=== PATIENT | male | born 1970 | race Caucasian/White ===

== ENCOUNTER 2025-10-24 18:22 | Emergency (ER) | payer OTHER, SELFPAY ==
--- OUTSIDE RECORDS SUMMARY | 2024-11-04 11:45 | XMS_ITS ---
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 Name Role Phone Cait Garcia Primary Care Provider [phone] Corina Colby [facility] [phone] REASON FOR VISIT R/s 07/22 restart couples therapy Social History Sex Assigned At : Social History Observation Description Sex Assigned At Male Encounters Encounter Location Date Provider Diagnosis [address] [address] 11/04/2024 Corina Colby Plan Of Treatment No Information Progress Notes * ANTELMO VANN PDOB:1969 (55 yo M)Acc No.[id number]:11/04/2024 Behavioral Health Patient: Tj ANTELMO CHATTERJEE :?Corina BeanmDOB:1970???Age:54 Y???Sex:Male Date:11/04/2024Phone:[phone]:TOVA LEE [id number]:Cait Owusu Subjective: * Chief Complaints: * R /s 07/22 restart couples therapy Billing Information: * Procedure Codes: Care Plan Details* * Electronic signature of FRANKO Hampton on 10/24/2025 at 07:01 PM ESTSign off status: Pending * Provider: Dennise Colby Date: 0 11/04/2024 Generated for Printing/Faxing/eTransmitting on:?10/24/2025 07:01 PM EST
--- OUTSIDE RECORDS SUMMARY | 2025-06-12 08:00 | XMS_ITS ---
Author Organization [facility] Serv es Address [address] [place] [address] Care Team Providers Care Partner Name Role Phone Cait Garcia Primary Care Provider Corina Colby Unavailable [phone] Mayur Diop Unavailable [phone] REASON FOR VISIT 2 week BH f/u Social History Sex Assigned At : Social History Observation Description Sex Assigned At Male Encounters Encounter Location Date Provider Diagnosis [address] [address] 2024 Mayur Diop Plan Of Treatment No Information Progress Notes * ANTELMO VANN PDOB:1969 (55 yo M)Acc No.[id number]:06/12/2025 BH F/U - Patient Patient: Tj ANTELMO CHATTERJEE :?FRANKO Moffett-SDOB:1970???Age:54 Y ???Sex:MaleDate:06/12/2025Phone:[phone]:TOVA LEE [id number]:Cait Owusu Subjective: * Chief Complaints: * 2 week BH f/u Care Plan Details* * Electronic signature of CHAVA Moffett, [id number] on 10/24/2025 at 07:01 PM ESTSign off status: Pending * Provider: CHAVA Diaz Date: 0 06/12/2025 Generated for Printing/Faxing/eTransmitting on:?10/24/2025 07:01 PM EST
[2025-10-24 18:45] VITALS: BP 132/77; PULSE 96; TEMP 37; O2SAT 97; BMI 64.2
--- OUTSIDE RECORDS SUMMARY | 2025-10-24 19:01 | XMS_ITS | Clinical Summary ---
Author Organization [facility] Address [address] [place] [address] Care Team Providers Care Knot Bumper Name Role Phone Julienne Neal MD Primary Care Provider Ivet Goins RN Unavailable [phone] Julienne Neal MD Unavailable [phone] Allergies Active AllergyReactionsCriticalityNoted LexjEuxabebsOworocyxk09/09/2023ee YrrcaqZxgcwvv44/08/6141WjbrdhhaFayfIwc75/01/2023 agitation IrzzxiatghXmapjygb66/28/1666XfkaqtteuUxocbveQkpqrq53/01/2023Semaglutide(0.25 Or 0.5mg-Dos)11/03/2024 Pancreatic insufficiency QixdfzzgxvxOaunejw33/08/2023Soy Allergy (Obsolete)Unknown,FpftXsr9808/17/2023 family reported soy allergy Soybean-Containing Drug Wrijmpjk46/23/7772FplabgwoPivhrfm15/08/2023 Medications MedicationSigDispense QuantityRefillsLast FilledStart DateEnd DateStatus Blood Glucose Monitoring Suppl (True Metrix Meter) w/Device kit Inject 1 Device under the skin Daily08/23/2022ctive Syringe, Disposable, 1 ML misc Indications:Testosterone deficiency1 Syringe every 14 (fourteen) days. 100 each 05/15/2023ctive acetaminophen (Tylenol) 325 MG tablet Take 325 mg by mouth every 6 (six) hours if needed for headaches, moderate pain or mild painActive albuterol (2.5 MG/3ML) 0.083% nebulizer solution Take 2.5 mg by nebulization every 6 (six) hours if needed for wheezing or shortness of breathActive ipratropium-albuterol (Duo-Neb) 0.5-2.5 mg/3 mL nebulizer solution Take 3 mL by nebulization every 6 (six) hoursActive nystatin (Mycostatin) 984469 UNIT/GM powder Apply topically in the morning and before bedtime.Active polyethylene glycol, PEG, 3350 (Glycolax) 17 GM/SCOOP powder Take 17 g by mouth Daily02/14/2024ctive lidocaine (Lidoderm) 5 % patch Indications:Chronic midline low back pain without sciaticaApply 1 patch over 12 hours topically Daily Remove & discard patch within 12 hours or as directed by MD. 30 patch 08/20/2024ctive rosuvastatin (Crestor) 20 MG tablet Indications:Type 2 diabetes mellitus without complication, without long-term current use of insulin (HCC)Take 1 tablet (20 mg) by mouth Daily 100 tablet 503/6Active pantoprazole (ProtoNix) 40 MG EC tablet Indications:Gastroesophageal reflux disease without esophagitisTAKE 1 TABLET BY MOUTH IN THE MORNING BEFORE MEAL(S) 30 tablet 1105Active potassium chloride CR (Klor-Con M20) 20 MEQ ER tablet Indications:HypokalemiaTake 2 tablets (40 mEq) by mouth Daily Do not crush or chew. 180 tablet 304/185941/6Active QUEtiapine (SEROquel) 50 MG tablet Indications:Reactive depressionTAKE 1 TABLET BY MOUTH IN THE EVENING WITH 25 MG TABLET 90 tablet 3065Active Zegalogue 0.6 MG/0.6ML solution auto-injector Inject as directed if vuqbyi375Active MAGnesium-Oxide 400 (240 Mg) MG tablet Indications:HypomagnesemiaTake 2 tablets (800 mg) by mouth in the morning and 2 tablets (800 mg) in the evening and 2 tablets(800 mg) before bedtime. 180 tablet 1108/721867/6Active folic acid (Folvite) 1 MG tablet Indications:Folate deficiencyTake 1 tablet (1 mg) by mouth Daily 90 tablet 308/12/907466/6Active pancrelipase, [place], (Zenpep) 5000-79359 units capsule delayed-release particles capsule Indications:Pancreatic atrophy (HCC)Take 3 capsules by mouth in the morning and 3 capsules at noon and 3 capsules in the evening. Take with meals. TAKE 3 CAPSULES BY MOUTH THREE TIMES DAILY THEN 1 TWICE DAILY NEEDED WITH SNACKS. 400 capsule 5Active empagliflozin (Jardiance) 10 MG Indications:Secondary DM with complication ([facility])Take 1 tablet (10 mg) by mouth Daily 90 tablet 6Active glucose blood test strip Indications:Type 2 diabetes mellitus with hyperglycemia, with long-term current use of insulin ([facility])1 each by Other route Daily Use as instructed 100 each 5Active omega-3 (Fish Oil) 1000 MG capsule Indications:Type 2 diabetes mellitus with hyperglycemia, with long-term current use of insulin ([facility]),Chronic diastolic CHF (congestive heart failure) ([facility])Take 1 capsule (1,000 mg) by mouth Daily 90 capsule 6Active Continuous Glucose Sensor (FreeStyle Mark 3 Plus Sensor) [facility] CHANGE SENSOR ONCE EVERY 15 DAYS5Active oxyCODONE (Roxicodone) 5 MG immediate release tablet Indications: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 ([facility])Take 1 tablet (5 mg) by mouth every 6 (six) hours if needed for severe pain 120 tablet 6Active ALPRAZolam (Xanax) 0.5 MG tablet Indications:AnxietyTake 1 tablet (0.5 mg) by mouth every 8 (eight) hours if needed for anxiety 90 tablet 6Active losartan (Cozaar) 25 MG tablet Indications:Primary hypertensionTake 1 tablet (25 mg) by mouth Daily 90 tablet 6Active rivaroxaban (Xarelto) 20 MG tablet Indications:Pulmonary embolism, unspecified chronicity, unspecified pulmonary embolism type, unspecified whether acute cor pulmonale present ([facility])Take 1 tablet (20 mg) by mouth in the evening. Take with meals Take with food. 90 tablet 5Active busPIRone (Buspar) 10 MG tablet Indications:AnxietyTake 1 tablet (10 mg) by mouth in the morning and 1 tablet (10 mg) in the evening and 1 tablet (10 mg) before bedtime. 270 tablet /6Active QUEtiapine (SEROquel) 25 MG tablet Indications:AnxietyTake 1 tablet (25 mg) by mouth 2 (two) times a day 1 tab in the morning and Take 1 tab in the evening along with a 50 mg tablet to equal 75 mg (EVENING ONLY) 180 tablet ctive hydrOXYzine HCl (Atarax) 25 MG tablet Indications:AnxietyTake 1 tablet (25 mg) by mouth as needed at bedtime for itching or anxiety 90 tablet Discontinued(Therapy completed) hydrALAZINE (Apresoline) 10 MG tablet Take 10 mg by mouth See administration instructions May utilize if bp greater than 140/90 daily prn111/30/2024Discontinued(Therapy completed) busPIRone (Buspar) 10 MG tablet Indications:AnxietyTake 1 tablet (10 mg) by mouth in the morning and 1 tablet (10 mg) in the evening and 1 tablet (10 mg) before bedtime. 270 tablet 311/20231030/11/2024Discontinued(Reorder) meclizine (Antivert) 12.5 MG tablet Indications:Benign paroxysmal positional vertigo, unspecified lateralityTake 1 tablet (12.5 mg) by mouth 3 (three) times a day as needed for dizziness 30 tablet 110Discontinued(Therapy completed) Xarelto 20 MG tablet Indications:Pulmonary embolism, unspecified chronicity, unspecified pulmonary embolism type, unspecified whether acute cor pulmonale present (HCC)TAKE 1 TABLET BY MOUTH EVERY DAY IN THE EVENING WITH MEALS 90 tablet Discontinued(Reorder) QUEtiapine (SEROquel) 25 MG tablet Indications:AnxietyTAKE 1 TABLET BY MOUTH IN THE MORNING AND 1 IN THE EVENING 180 tablet /11/2024Discontinued(Reorder) glucagon (Gvoke HypoPen) 1 MG/0.2ML injection Indications:Type 2 diabetes mellitus without complication, without long-term current use of insulin (HCC)Inject 0.2 mL (1 mg) under the skin 1 (one) time if needed for low blood sugar 1 each Discontinued ALPRAZolam (Xanax) 0.5 MG tablet Indications:AnxietyTake 1 tablet (0.5 mg) by mouth every 8 (eight) hours if needed for anxiety 90 tablet Discontinued(Reorder) magnesium oxide (Mag-Ox) 400 MG tablet TAKE 2 TABLETS BY MOUTH IN THE MORNING AND 2 IN THE EVENING AND 2 AT BEDTIME Discontinued(Therapy completed) losartan (Cozaar) 25 MG tablet Indications:Primary hypertensionTake 1 tablet (25 mg) by mouth Daily 90 tablet Discontinued(Reorder) oxyCODONE (Roxicodone) 5 MG immediate release tablet Indications: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 Neal Do not start before August 29, 2025. 120 tablet Discontinued(Reorder) QUEtiapine (SEROquel) 25 MG tablet Indications:AnxietyTake 1 tablet (25 mg) by mouth at bedtime 90 tablet Discontinued Active Problems ProblemNoted DateDiagnosed DateHemiplegia of nondominant side as late effect of cerebrovascular jozyueb0207/27/2025History of pulmonary /29/2025 Nontraumatic intracerebral hemorrhage, oelnumtgaqs56/29/2025Presence of other vascular implants and ctxypw8707/27/2025dhesive capsulitis of left shoulder 03/21/2024Left anterior shoulder pain03/21/2024Leg weakness, dyyjkplvg61/24/2024 Former surjvs3802/18/2024Nausea vomiting and kxzldjce75/22/2024GAD (generalized anxiety disorder)09/24/2023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09/21/2023 Nontraumatic subcortical hemorrhage of right cerebral cypjxtbmet57/24/2023 History of exploratory vejaxiyrnd18/07/2023 Overview (01/02/2024): Last Assessment & Plan: Assessment: s/p exploratory laparotomy, abdominal washout, and gastric wedge resection on 08/12. Has sutures and retention sutures in place Has corpak with TF at goal and diarrhea PLAN: -- discussed suture removal with surgery - their plan is to wait at least 1 month from surgery for removal -- Continue TF @goal, aniket marlyn fiber supplements today for diarrhea Pjssqwg4308/31/2023 Overview (01/02/2024): Last Assessment & Plan: Assessment: - Chronic allen with c/o dysuria and burning on admission. Allen changed out on admission 08/31 and UA with pyuria, nitrites and LE. - Most recent UCx NGTD. - Completed Pyridium to help with c/o bladder pressure. - Started on cefepime due to isolated fever, urine cultures negative. Cefepime changed to Cefdinir PLAN: -- Continue allen. -- Cont cefdinir through 09/07 for gram negative coverage. Pulmonary ldodfhmt93/03/2023 Overview (01/02/2024): Last Assessment & Plan: Assessment: - RLL PE seen on CT chest 08/31. Recent ICH with splenic hematoma.. - IVC filter placed per IR 09/02. - Bilateral upper ext superficial thrombophlebitis. - Lower ext ultrasound with acute DVTs in right distal external iliac and common femoral vein and left popliteal vein, posterior tibial veins, and peroneal veins from proximal to distal. PLAN: -- Not candidate for AC d/t recent ICH. -- IVC in situ. Hemiplegia and hemiparesis following nontraumatic intracerebral hemorrhage affecting left non-dominant side07/30/2023 Overview (01/02/2024): Last Assessment & Plan: Assessment: - Hx CVA with residual left sided weakness, 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 - Recent right thalamic ICH s/p trach - Neurologically remains intact with no focal deficits. Plan: -- Continue to monitor neuro exam. -- Cont work with PT/OT. Lvwpbpfdq00/09/2023ell's palsy04/06/20238003Smbrpytq69/09/2023Major depressive disorder, single episode, zoqdzjkysdt20/09/2023ituitary ywwtjvdpuse54/09/2023 Difficulty rccmfaj5704/05/2023Hyperglycemia due to type 2 diabetes mellitus 04/05/2023Lumbago of lumbar region with nivcvizc71/08/2023Mild episode of recurrent major depressive aeuqvlgy45/08/2023Morbid ybaxaix1304/05/2023OSA (obstructive sleep apnea)04/05/2023Other chronic pain04/05/2023Type 2 diabetes mellitus in patient with mgijwtt9110/09/2018 Overview (11/03/2024): Problem List Diagnosis Replacement Utility 07/29/2024 Muscle essizwvp83/03/2018Need for assistance with personal care09/30/2018 Unsteadiness on feet09/30/2018Combined systolic and diastolic cardiac ybqqbiesnjj25/01/2018Congestive heart sequscv1909/28/20189694Muxrzru90/01/2018Disorder of brain09/27/2018Chronic diastolic CHF (congestive heart failure)09/23/2018 Overview (04/06/2023): Last Assessment & Plan: Assessment: Suspected due to prior history of volume overload with normal LV systolic function on echocardiograms. Prior echocardiograms very limited and unable to evaluate diastolic function. Currently, heartfailure is compensated. Unclear if pulmonary edema on CXR as limited study given body habitus. Patient developing contraction alkalosis. PLAN: Continue Torsemide Monitor I&O Monitor and replete electrolytes Physical sttgmexo52/26/2018 Overview (04/06/2023): Last Assessment & Plan: Assessment: Related to co-morbid illnesses and multiple hospitalizations. PLAN: PT/OT consulted Discharge to SNF: awaiting precert Circadian rhythm sleep hcacqwun29/17/2018 Overview (04/06/2023): Last Assessment & Plan: Assessment: For past 3 years is awake during night time, goes to bed at 6am and uses CPAP throughout the day PLAN: - Will need follow up w/ sleep medicine upon discharge Overview: Last Assessment & Plan: Assessment: For past 3 years is awake during night time, goes to bed at 6am and uses CPAP throughout the day PLAN: - Will need follow up w/sleep medicine upon discharge Last Assessment & Plan: Assessment: For past 3 years is awake during night time, goes to bed at 6am anduses CPAP throughout the day PLAN: - Will need follow up w/ sleep medicine upon discharge Hypertensive qweuyrrv10/17/4108Ejeasnu32/06/2018 Overview (04/06/2023): Last Assessment & Plan: Assessment: Has been severely depressed since father committed suicide 8 years ago. Has not seeked help, but wishes to per mother. PLAN: - Cymbalta 60mg BID - dose increase d/t uncontrolled anxiety per pt - Psych consult to assist w/ Anxiety/depression that is inhibiting compliance with BiPAP - Seroquel 75mgqhs with 50mg PRN - atarax PRN Overview: Last Assessment & Plan: Assessment: Has been severely depressed since father committed suicide 8 years ago. Has not seeked help, but wishes to per mother. PLAN: - Cymbalta 60mg BID - dose increase d/t uncontrolled anxiety per pt - Psych consult to assist w/ Anxiety/depression that is inhibiti ng compliance with BiPAP - Seroquel 75mg qhs with 50mg PRN - atarax PRN Last Assessment & Plan: Assessment: Stable. PLAN: Continue Seroquel and Cymbalta Acute on chronic respiratory tvjuspk85/07/2018 Overview (04/06/2023): Last Assessment & Plan: Assessment: unclear etiology - pneumonia/infectious vs volume overload; component of OHS/CELESTINE - Less likely PEd/t CT chest and DVT scan (-) Completed course of empiric antibiotics with Levaquin and CeftriaxoneEcho bubble study neg for shunt - now back on home O2 requirements PLAN: - Continue weaning O2 requi rements - BiPAP HS. - Patient sleep pattern is from 6am -4pm daily, wears bipap during this time not at night - Diuresis - torsemide 20mg daily. - s/p Diamox 250 mg daily x3 (09/07-09/09) Maty coats on 18: Obesity Hypoventilation Syndrome He is aware that his weight can play a significant role in affecting gas exchange. He is now compliant with the BiPAP and does use his supplemental oxygen at 3 LPM for 24 hours/day - although the mask is a poor fit. Room Air Blood Gases today confirm persistent hypoxemia and hypercarbia. No anemia or polycythemia. Last ECHO does show elevated pulmonary pressure. I am contacting Dr. Churchill today for her assistance in helping to obtain the new BiPAP device with humidification and [facility]. She last evaluated Mr. Koenig on 10/03 with recommendations for a BiPAP titration and new device. [facility] will only deliver the new BiPAP once the patient is discharged on 10/16 which is delaying improvement in sleep and daytime activit ies. We discussed that he should use this device whenever he sleeps - day or night - and attach oxygen as well. We did speak about the use of OTC saline nasal sprays to cleanse and condition nose andsinuse Last Assessment & Plan: Assessment: Presented with acute hypercarbia (pCO2 in 90s) at LTACH in setting of noncompliance with BiPAP. CXR limited due to body habitus but showed bibasilar atelectasis with no acute process. PLAN: Continue supplemental oxygen: on 5LPM via NC at baseline Continue BiPAP with sleep; titration completed by Pulmonary team Continue Pulmicort and Albuterol Needs sleep study and titration study as outpatient F/u in [facility] Oobpdfhyqutetz43/24/2016Testosterone pakkiahqbx18/23/2013 Overview (04/06/2023): Last Assessment & Plan: PLAN: - Hold testosterone shots Overview: Last Assessment & Plan: PLAN: - Hold testosterone shots Last Assessment & Plan: PLAN: - Hold testosterone shots Back pain10/03/2012Calculus of dhtlnx7210/03/2012Family history of malignant neoplasm of /06/2012 Overview (02/07/2024): [facility]ED Diagnostic import Gastroesophageal reflux tzyxbvx1010/03/2012 Overview (04/06/2023): Pulm boonetracy on 10.07.18: He has pretty good symptom control using Prilosec 40 mg twice daily and denies any choking or aspiration of food/liquids. He does admit to cough if a dose of Prilosec is missed. We did talk about some anti-reflux precautions and I shared some patient education material about this to take home. He has an appointment on 10/09 in [place] for an evaluation. Resolved Problems ProblemNoted DateDiagnosed DateResolved DateTracheostomy aycjvgq0107/27/2025 07/27/2025t high risk for falls/Screen for colon cancer /7056Fhagrcnkaxd50/24/202309/cute hypoxemic respiratory spawtsu42/Nicotine use klfhueqa22/ Parapneumonic / Overview (01/02/2024): Last Assessment & Plan: Assessment: - S/p chest tube placement 09/01. - Exudative by Light's criteria. - Pleural fluid LDH 435. - Now with minimal output. - Pleural fluid culture negative. - Chest tube removed by IR 09/05 with post removal CXR completed - Remains stable on vent Plan: -- Monitor respiratory status and wean vent as tolerated by patient. -- CXR PRN Morbid obesity with BMI of 60.0-69.9, adult/ Overview (01/02/2024): Last Assessment & Plan: Assessment: - BMI 61.18. Plan: - Nutrition consulted, appreciate recs - Diet education/lifestyle modification prior to d/c. Spleen rsmtzgyl86/ Overview (01/02/2024): Last Assessment & Plan: Assessment: - Pt with splenic hematoma on outside imaging 10 cm x 1.9 cm. Hgb 8.9 on admission (was 8.6 at discharge 4 days prior). - Since no disc sent by , primary team repeated CT chest/abd/pelvis. CT abd showed interval decrease in rim-enhancing trace perisplenic fluid collection; no internal gas bubbles; small upper left abdominal cruz-incisional seroma. - Hemoglobin remains stable. PLAN: -- Trend CBC daily and PRN -- Monitor for s/s bleeding, none today -- Transfuse for Hgb <7 or symptomatic anemia. -- Not candidate for AC d/t recent ICH, is s/p IVC filter MRSA ffqyqxmed21/ Overview (01/02/2024): Last Assessment & Plan: Assessment: - During recent admission, was being treated with IV vanco (transitioned to PO Linezolid as outpatient) through 09/09 for MRSA pneumonia per ID. - Resumed on IV vanco while inpatient per ID recommendations, now transitioned back to Linezolid because he is planned for discharge to LTACH 09/06 PLAN: -- Cont linezolid PO as patient is planned for discharge to LTACH. -- Trend WBC/fever curve. -- CXR as clinically indicated. -- Wean vent settings as able. At risk for spread of mgykrtmpn98Malnutrition of mild degree (HHS-HCC)HyperkalemiaLeukocytosis Overview (01/02/2024): Last Assessment & Plan: WBC elevated to 17 overnight with fevers C/o abd pain as well Plan - Continue vanco, add jourdan - ID consulted - CT C/A/P ordered Pneumonia of both lower lobes due to infectious sjilepbe70 Overview (01/02/2024): Last Assessment & Plan: Assessment: - Hospital course c/b MRSA pneumonia. - Continues to require ventilator support. - ID following. Plan: -- Follow up ID recommendations. -- Continue vancomycin for presumed MRSA pneumonia while inpatient. Plan to transition to fkyeljwzd114 mg BID with EOT 09/05. Failure to wean from mechanical majnzcccvwc33 Overview (01/02/2024): Last Assessment & Plan: Assessment: - Patient with previous diagnosis of COPD/asthma. - Course complicated by MRSA pneumonia and pleural effusions. - 08/21 Trach exchange, diagnostic bronchoscopy. Post-procedure CXR unchanged from prior. Plan: -- Continue to wean from vent as tolerated by patient. -- Continue antimicrobial per ID recommendations for MRSA pneumonia. Difficult ndybvh75Therapeutic drug pdqohiwfqu76/07/2023 07/15/2024 Overview (01/02/2024): Last Assessment & Plan: -BLE SCDs -SC Heparin 7500units Q8h, PTT normal on this dose Cardiac arrest due to respiratory kudknizj67 Overview (01/02/2024): Last Assessment & Plan: 08/01 afternoon had PEA arrest following respiratory decompensation. ROSC achieved following intubation and 6 rounds of CPR including 3x Epi and calcium and intubation via 2DART -post-arrest Echo without significant changes -remains hemodynamically stable Blister of backlister of left ihofnlgb39 Oropharyngeal utqbciizy85 Overview (01/02/2024): Last Assessment & Plan: 08/08: s/p PEG 08/10: TF changed from nutren 2.0 back to peptamen AF d/t intolerance to nutren( diarrhea, GI upset) Ankle /hronic obstructive pulmonary witrbti1504/06/2023 04/06/2023Influenza-like bdhueho24Oxygen zuybaxetj62/08/2023 07/15/2024Elbow pain, right Overview (04/06/2023): Last Assessment & Plan: Assessment: Noted since fall at LTACH. No evident soft tissue injury but bony tenderness noted. X-ray negative for fracture or dislocation of elbow. Pain is improving. PLAN: Continue to monitor Superficial thrombophlebitis of left upper lcjuvifhp28 Overview (04/06/2023): Last Assessment & Plan: Assessment: Related to recent IV in LUE. Patient concerned for DVT but duplex of LUE on 09/24/2018 negative for DVT but showed cephalic vein superficial thrombophlebitis. PLAN: Continue to monitor Urinary usrpeaasq13 Overview (04/06/2023): Last Assessment & Plan: Assessment: Patient concerned for UTI this admission; also having low grade fevers. UA not concerning for infection. Urine culture grew 10,000 - <50,000 CFU/ml Enterococcus faecalis. PLAN: Continue to monitor Respiratory vdsweoz62/0254Irqbdffcnc52/17/201809/cute exacerbation of chronic obstructive airways Overview (04/06/2023): Pulm eval on 10.07.18: COPD exacerbation during last admission (09/18 - 09/27/18) CXR stable on 09/23/2018 and lung louis clear today. Sat on 3 LPM is 94%. Last PFTs in 10/2012 and Spirometry and Lung Volumes ordered today confirm moderate restriction TLC 59% Discharge meds: Prednisone x 5 days - completed, Mucinex twice daily, Albuterol and Pulmicort in nebulizer twice daily He will continue using Pulmicort and Albuterol in nebulizer and good mouth-rinsing with both will reduce side effects. Importance of vaccines discussed but patient declined. Last Assessment & Plan: Assessment: Patient continues with wheezing, dyspnea, and increased productive cough. CXR stable on 09/23/2018 and demonstrates stable left-sided pleural effusion with left lower lobe atelectasis/consolidation and mild patchy right basilar atelectasis. Last PFTs in 2012 showed restrictive lungdisease but patient former smoker and endorses diagnosis of COPD. PLAN: Continue Prednisone x 5 days Continue Mucinex Continue Albuterol and Pulmicort F/u with Pulmonary as scheduled Feeling of incomplete bladder beucqohm76Intractable migraine Urinary qwaenfh58Voiding dysfunction Vitamin D pfrirmvllm65 Overview (04/06/2023): Maty coats on 10.07.18: Vitamin Ds andexercise Vitamin D level was low = 23 (normal 31-80) on 10/03 and I gave to him a prescription todayfor 5,000 IU to be taken each day. We discussed the importance of Vitamin D with a role in strong bones and muscles and that Vitamin D needs to be used to absorb Calcium. This should be managed by his PCP with his history of kidney stones. We spoke about progressive exercise as a goal beginning with extended walking. He may consider speaking with his new PCP about bariatric surgery. Encounters DateTypeDepartmentCare RrduGysgnwgyoow45/11/2025Patient Outreach [facility] [address] 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 [address] Ivet Deal, BERTO from Last 3 Months Immunizations ImmunizationAdministration DatesNext DueInfluenza, seasonal, injectable, preservative free08/18/2016PPD Test09/27/2018 Family History Medical HistoryRelationNameCommentsAlcohol abuseFatherProstate cancerFather committed suicideFatherFibromyalgiaMotherLupusMotherpituitary tumorMotherNo Known ProblemsSisterDrug abuseSon1 sonRelationNameStatusCommentsFatherDeceased MotherSister1 sisterSon2 sons Social History Tobacco UseTypesPacks/DayYears UsedDateSmoking Tobacco: NeverSmokeless Tobacco: Never Tobacco Cessation:Counseling Given: Not Answered Alcohol UseStandard Drinks/WeekCommentsNot Currently0 (1 standard drink = 0.6 oz pure alcohol)Humiliation, Afraid, Rape, and Kick questionnaireAnswerDate RecordedWithin the last year, have you been afraid of your partner or ex-partner?Patient gvfjdmcy58/08/2025Within the last year, have you been humiliated or emotionally abused in other ways by your partner or ex-partner? Patient /08/2025Within the last year, have you been kicked, hit, slapped, or otherwise physically hurt by your partner or ex-partner?Patient snbgtxif08/08/2025Within the last year, have you been raped or forced to have any kind of sexual activity by your partner or ex-partner?Patient declined 02/03/2025Social Connection and Isolation PanelAnswerDate RecordedIn a typical week, how many times do you talk on the phone with family, friends, or neighbors?More than three times a week02/03/2025How often do you get together with friends or relatives?Twice a week02/03/2025How often do you attend advent or sikhism services?Patient fktnkfys61/08/2025Do you belong to any clubs or organizations such as advent groups, unions, fraternal or athletic groups, or school groups?No02/03/2025How often do you attend meetings of the clubs or organizations you belong to?Never02/03/2025re you , , , , never , or living with a partner?Living with rrhlcrw0902/03/2025 AUDIT-CAnswerDate RecordedFrequency of Alcohol ConsumptionNot on file04/06/2023 Q2: How many drinks containing alcohol do you have on a typical day when you are drinking?Patient does not drink04/06/2023Frequency of Binge DrinkingNot on file 04/06/2023HQ-2AnswerDate RecordedPatient Health Questionnaire-2 Score0 03/10/2025[facility] - Occupational Stress QuestionnaireAnswerDate RecordedDo you feel stress - tense, restless, nervous, or anxious, or unable to sleep at night because yourmind is troubled all the time - these days?Very much02/03/2025Sex and Gender InformationValueDate RecordedSex Assigned at BirthNot on fileLegal GhnVspk5101/10/2023 6:45 PM EDT Gender IdentityNot on fileSexual OrientationNot on file Last Filed Vital Signs Vital SignReadingTime TakenCommentsBlood Tkwqkqpp684/8612/11/2024 1:50 PM EST Dwoyd404909/29/2025 1:50 PM YMPHivfwtgwgeb27.3 ??C (97.3 ??F)09/29/2025 1:50 PM ESTRespiratory Qhwq260206/23/2025 1:54 PM EDTOxygen Wrzhyzokca04%09/29/2025 1:50 PM ESTInhaled Oxygen Concentration--Yuckcw821 kg (377 lb 3.2 oz)09/29/2025 1:50 PM HBWKohqpe954.5 cm (5' 9.5 )09/29/2025 1:50 PM ESTBody Mass Index54.9 09/29/2025 1:50 PM EST Plan of Treatment DateTypeDepartmentCare Team (Latest Contact Info)Nnaqudscmwo76/03/2026 2:20 PM ESTOffice Visit [facility] [place] [facility] [address] [place] [phone] Julienne Neal MD [address] [place] [address] Health MaintenanceDue DateLast DoneCommentsCT Invxadkadkxs1972Colonoscopy 1972FIT-DNA1972FIT08/10/19723130Unvhmdqevfzcw1972Diabetes: Retinopathy Knpenqtzp01/13/1982Pneumococcal Vaccine: Pediatrics (0 to 5 Years) and At-Risk Patients (6 to 64 Years) (1 of 2 - PCV)1991Colorectal Cancer Ipouubtym71/08/4802DDXE82/05/2023Influenza Vaccine (#1)2025 08/18/2016Diabetes: Hemoglobin A1C, 06/23/2025, 04/10/2025, Additional history existsDiabetes: Urine Protein Ivgwdfdkt25, 01/02/2024Medicare Annual Wellness (AWV), 03/10/2025, 04/08/2024 Procedures Procedure NamePriorityDate/TimeAssociated DiagnosisCommentsMAGNESIUMRoutine 09/29/2025 2:31 PM EST 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) Pancreatic atrophy (HCC) PROTHROMBIN TIME-YGKFvdxefs16/02/2025 2:31 PM EST 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) Pancreatic atrophy (HCC) FOLATE, AJKJOPxlnbvz10/02/2025 2:31 PM EST 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) Pancreatic atrophy (HCC) VITAMIN N07Jghouyf31/02/2025 2:31 PM EST 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) Pancreatic atrophy (HCC) IRON + TRANSFERRIN + UKCWAdivlvu60/02/2025 2:31 PM EST 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) Pancreatic atrophy (HCC) COMPREHENSIVE METABOLIC BLLUNBvumepf38/02/2025 2:31 PM EST 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) Pancreatic atrophy (HCC) CBC (INCLUDES DIFF/PLT)Bzhdlij9409/29/2025 2:31 PM EST 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) Pancreatic atrophy (HCC) SCXAIMITkisuxj22/02/2025 2:31 PM EST 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) Pancreatic atrophy (HCC) CSNCXFDyzcjpq99/02/2025 2:31 PM EST 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) Pancreatic atrophy (HCC) POCT GLYCATED HEMOGLOBIN, WBOCSFggtkjg37/02/2025 2:01 PM EST Type 2 diabetes mellitus without complication, without long-term current use of insulin (HCC) MICROALBUMIN / CREATININE URINE BBGOMEjhuaiz73/13/2025 8:43 AM EDT Type 2 diabetes mellitus without complication, without long-term current use of insulin (HCC) from Last 3 Months or Most Recently Relevant to Health Maintenance Results * Iron + transferrin + TIBC (09/29/2025 2:31 PM EST)ComponentValueRef RangeTest MethodAnalysis TimePerformed AtPathologist SignatureIron Bind.Cap.(TIBC)248707 - 450 ug/qUONJVDZMRFET891767 - 343 ug/xLDIAPYYXZcgb6874 - 169 ug/dLLABCORPIron Xcyydbgbtq1554 - 55 %ZDZZYZRSRKEQDRMBIC113340 - 329 mg/dLLABCORPSpecimen (Source)Anatomical Location / LateralityCollection Method / VolumeCollection TimeReceived TimeBloodVenous blood specimen / Trodcqd0109/29/2025 2:31 PM EST 09/29/2025 Narrative [facility] - 09/30/2025 8:35 AM EST Performed at: 01 - [facility] [address] ??[id number] Degreasing Wheel Operator: Jordan Walters PhD, Phone: ??[phone] Authorizing ProviderResult TypeResult StatusJulienne Neal MDLAB BLOOD ORDERABLESFinal ResultPerforming OrganizationAddressCity/State/ZIP CodePhone Number [facility] * (ABNORMAL) Protime-INR (09/29/2025 2:31 PM EST)ComponentValueRef RangeTest MethodAnalysis TimePerformed AtPathologist SignatureINR1.3(H)0.9 - 1.2[facility] Comment: Reference interval is for non-anticoagulated patients. Suggested INR therapeutic range for Vitamin K antagonist therapy: ?? Standard Dose (moderate intensity ?therapeutic range): ? 2.0 - 3.0 ?? Higher intensity therapeutic range ? 2.5 - 3.5 Prothrombin Time13.5(H)9.1 - 12.0 secLABCORPSpecimen (Source)Anatomical Location / LateralityCollection Method / VolumeCollection TimeReceived TimeBloodVenous blood specimen / Margbpe4409/29/2025 2:31 PM EST09/29/2025 Narrative [facility] - 09/30/2025 8:35 AM EST Performed at: 01 - [address] ??[id number] Degreasing Wheel Operator: Jordan Walters PhD, Phone: ??[phone] Authorizing ProviderResult TypeResult StatusJulienne Neal MDLAB BLOOD ORDERABLESFinal ResultPerforming OrganizationAddressCity/State/ZIP CodePhone Number [facility] * (ABNORMAL) CBC and differential (09/29/2025 2:31 PM EST)ComponentValueRef RangeTest MethodAnalysis TimePerformed AtPathologist SignatureWBC8.53.4 - 10.8 x10E3/uLLABCORPRBC6.41(H)4.14 - 5.80 x10E6/lHGXXMNPYWgo22.313.0 - 17.7 g/dL IELPBXFCqb96.4(H)37.5 - 51.0 %QLAHSZOVWB8252 - 97 iDSVWKNDAEYM30.026.6 - 33.0 azQWMCOHOPZQT41.431.5 - 35.7 g/pSKKGFJMEPSC90.211.6 - 15.4 %[facility]ABCORPPlatelets 024377 - 450 x10E3/uNUTWCJPVUkpceogejww89Cou Estab. %QCDZULGGfilxs12Mxk Estab. %UBIQEPXCebzyafft5Kpy Estab. %GTDJSXLFrz1Uys Estab. %KIPAMEUSkrxw0Ypw Estab. % [facility]PNeutrophils Abs5.81.4 - 7.0 x10E3/uLLABCORPLymphs Abs1.70.7 - 3.1 x10E3/uLLABCORPMonocytesAbs0.80.1 - 0.9 x10E3/uLLABCORPEos Abs0.20.0 - 0.4 x10E3/uLLABCORPBaso Abs0.00.0 - 0.2 x10E3/uLLABCORPImmature Jehknltuyewo9Dns Estab. %[facility]ABC[facility]PImmature Grans Abs0.00.0 - 0.1 x10E3/uLLABCORPSpecimen (Source) Anatomical Location / LateralityCollection Method / VolumeCollection Time Received TimeBloodVenous blood specimen / Bebktal9909/29/2025 2:31 PM EST 09/29/2025 Narrative [facility] - 09/30/2025 8:35 AM EST Performed at: [address] [place] [address] ??[id number] Degreasing Wheel Operator: Jordan Walters PhD, Phone: ??[phone] Authorizing ProviderResult TypeResult StatusJulienne PALUMBO BLOOD ORDERABLESFinal ResultPerforming OrganizationAddressCity/State/ZIP CodePhone Number [facility] * Magnesium (09/29/2025 2:31 PM EST)ComponentValueRef RangeTest MethodAnalysis TimePerformed AtPathologist SignatureMagnesium2.11.6 - 2.3 mg/dLLABC[facility]P Specimen (Source)Anatomical Location / LateralityCollection Method / Volume Collection TimeReceived TimeBloodVenous blood specimen / Uryqlce4909/29/2025 2:31 PM EST09/29/2025 Narrative [facility] - 09/30/2025 8:35 AM EST Performed at: [address] ??[id number] Degreasing Wheel Operator: Jordan Walters PhD, Phone: ??[phone] Authorizing ProviderResult TypeResult StatusJulienne PALUMBO BLOOD ORDERABLESFinal ResultPerforming OrganizationAddressCity/State/ZIP CodePhone Number [facility] * Lipase (09/29/2025 2:31 PM EST)ComponentValueRef RangeTest MethodAnalysis Time Performed AtPathologist TciuogbasKDFPXY6398 - 78 U/[facility]PSpecimen (Source) Anatomical Location / LateralityCollection Method / VolumeCollection Time Received TimeBloodVenous blood specimen / Amwqbgw6009/29/2025 2:31 PM EST 09/29/2025 Narrative [facility] - 09/30/2025 8:35 AM EST Performed at: [address] [place] [address] ??[id number] Degreasing Wheel Operator: Jordan Walters PhD, Phone: ??[phone] Authorizing ProviderResult TypeResult StatusJulienne Neal MDWESTERN PLAINS MEDICAL COMPLEX BLOOD ORDERABLESFinal ResultPerforming OrganizationAddressCity/State/ZIP CodePhone Number [facility] * Folate (09/29/2025 2:31 PM EST)ComponentValueRef RangeTest MethodAnalysis Time Performed AtPathologist SignatureFolate>20.0>3.0 ng/mLLABCORPComment: A serum folate concentration of less than 3.1 ng/mL is considered to represent clinical deficiency. Specimen (Source)Anatomical Location / LateralityCollection Method / Volume Collection TimeReceived TimeBloodVenous blood specimen / Vuqhlpx0909/29/2025 2:31 PM EST09/29/2025 Narrative [facility] - 09/30/2025 8:35 AM EST Performed at: [address] ??[id number] Degreasing Wheel Operator: Jordan Walters PhD, Phone: ??[phone] Authorizing ProviderResult TypeResult StatusJulienne PALUMBO BLOOD ORDERABLESFinal ResultPerforming OrganizationAddWayne Memorial Hospitalty/[facility] CodePhone Number [facility] * Vitamin B12 (09/29/2025 2:31 PM EST)ComponentValueRef RangeTest MethodAnalysis TimePerformed AtPathologist SignatureVitamin [id number] - 1,245 pg/mLL[facility]P Specimen (Source)Anatomical Location / LateralityCollection Method / Volume Collection TimeReceived TimeBloodVenous blood specimen / Ltknanu1709/29/2025 2:31 PM EST09/29/2025 Narrative [facility] - 09/30/2025 8:35 AM EST Performed at: [address] [place] [address] ??[id number] Degreasing Wheel Operator: Jordan Walters PhD, Phone: ??[phone] Authorizing ProviderResult TypeResult StatusJulienne PALUMBO BLOOD ORDERABLESFinal ResultPerforming OrganizationAddressCity/State/ZIP CodePhone Number [facility] * Amylase (09/29/2025 2:31 PM EST)ComponentValueRef RangeTest MethodAnalysis TimePerformed AtPathologist TudengzbwLGXBBUO3532 - 110 U/[facility]PSpecimen (Source)Anatomical Location / LateralityCollection Method / VolumeCollection TimeReceived TimeBloodVenous blood specimen / Gdoakei3609/29/2025 2:31 PM EST 09/29/2025 Narrative [facility] - 09/30/2025 8:35 AM EST Performed at: [address] ??[id number] Degreasing Wheel Operator: Jordan Walters PhD, Phone: ??[phone] Authorizing ProviderResult TypeResult StatusJulienne PALUMBO BLOOD ORDERABLESFinal ResultPerforming OrganizationAddressCity/State/ZIP CodePhone Number [facility] * (ABNORMAL) Comprehensive metabolic panel (09/29/2025 2:31 PM EST)Component ValueRef RangeTest MethodAnalysis TimePerformed AtPathologist SignatureGlucose 112(H)70 - 99 mg/bIPDSSBNDTQD315 - 24 mg/dLLABCORPCreat1.180.76 - 1.27 mg/dL HFUYHTRPGBP99>59 mL/min/1.73LABC[facility]PBUN/Creat Ziaht705 - 59ISHHOJMZcyhur474(H) 134 - 144 mmol/[facility]PPotassium5.03.5 - 5.2 mmol/GWNAVDJJMyychdzh91375 - 106 mmol/[facility]ABC[facility]PCarbon Vfamxet4802 - 29 mmol/UQGSQWLEVuqlois46.08.7 - 10.2 mg/dL [facility]PProtein Total7.36.0 - 8.5 g/dLLABCORPAlbumin4.63.8 - 4.9 g/dLL[facility] Globulin Total2.71.5 - 4.5 g/dLLABCORPBili Total0.50.0 - 1.2 mg/dLLABCORPAlk Saxcunexbmu8949 - 123 IU/DWVKMRSNOXY194 - 40 IU/TNPILSIHKKK206 - 44 IU/L [facility]PSpecimen (Source)Anatomical Location / LateralityCollection Method / VolumeCollection TimeReceived TimeBloodVenous blood specimen / Unknown 09/29/2025 2:31 PM EST09/29/2025 Narrative [facility] - 09/30/2025 8:35 AM EST Performed at: 01 - [address], [place], [place] ??[id number] Degreasing Wheel Operator: Jordan Walters PhD, Phone: ??[phone] Authorizing ProviderResult TypeResult Casandra Neal MDLAB BLOOD ORDERABLESFinal ResultPerforming OrganizationAddressCity/State/ZIP CodePhone Number [facility] * POCT glycated hemoglobin, total docked device (09/29/2025 2:01 PM EST) ComponentValueRef RangeTest MethodAnalysis TimePerformed AtPathologist SignatureHemoglobin A1C6.0Specimen (Source)Anatomical Location / Laterality Collection Method / VolumeCollection TimeReceived XzqlJyeyf10/02/2025 2:01 PM EST Narrative Authorizing ProviderResult TypeResult Casandra Neal [facility] TEST ENTER/EDIT ORDERABLESFinal Result * Microalbumin / creatinine urine ratio (01/08/2025 8:43 AM EDT)ComponentValue Ref RangeTest MethodAnalysis TimePerformed AtPathologist SignatureCREATININE, RANDOM QNWZK4658 - 320 mg/dLQUESTALBUMIN, URINE<0.2See Note: mg/dLQUEST Comment: Reference Range: Reference Range Not established ALBUMIN/CREATININE RATIO, RANDOM URINENOTE<30 mg/g creatQUESTComment: NOTE: The urine albumin value is less than 0.2 mg/dL therefore we are unable to calculate excretion and/or creatinine ratio. The ADA defines abnormalities in albumin excretion as follows: Albuminuria Category ?Result (mg/g creatinine) Normal to Mildly increased <30 Moderately increased ? 30-299 Severely increased > OR = 300 The ADA recommends that at least two of three specimens collected within a 3-6 month period be abnormal before considering a patient to be within a diagnostic category. Specimen (Source)Anatomical Location / LateralityCollection Method / Volume Collection TimeReceived TimeUrineUrine specimen obtained by clean catch procedure / Erkqrci3401/08/2025 8:43 AM EDT01/08/2025 3:32 PM EDT Narrative Resulting Agency Comment Performing Organization Information ?Site ID: [id number] ?Name: [facility] ?Address: [address] [place] [address], [address] [place] [id number] ?Director: Dayday Finn MD Authorizing ProviderResult TypeResult StatusJulienne Neal MDLAB URINE ORDERABLESFinal ResultPerforming OrganizationAddressCity/State/ZIP CodePhone Number [facility] from Last 3 Months or Most Recently Relevant to Health Maintenance Insurance Care Teams Team MemberRelationshipSpecialtyStart DateEnd Date Julienne Neal MD [address] [place] [address] PCP - GeneralFamily Medicine04/06/23 Julienne Neal MD [address] [place] [address] PCP - Devoted05/29/24 Ivet Deal, BERTO [address] [place] [address] Registered NurseFamily Medicine01/08/24
--- OUTSIDE RECORDS SUMMARY | 2025-10-24 19:01 | XMS_ITS | Clinical Summary ---
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 Foreman Name Role Phone Unavailable Primary Care Provider Unavailabl e Allergies Active AllergyReactionsCriticalityNoted DateCommentsPenicillinsOther (See Comments)10/03/2012 Tolerated ceftriaxone in August 2018 TramadolGI Htwqlzxrlfa07/12/2014 Medications MedicationSigDispense QuantityRefillsLast FilledStart DateEnd DateStatus albuterol (ACCUNEB) (2.5 MG/3ML) 0.083% nebulizer solution Inhale 2.5-5 mg every 6 (six) hours as needed for wheezing or shortness of breath.09/14/2018Active DULoxetine (CYMBALTA) 60 MG capsule Take 60 mg by mouth 2 (two) times a day.09/14/2018Active fluticasone-salmeterol (ADVAIR DISKUS) 500-50 MCG/DOSE DISKUS Inhale 1 puff 2 (two) times a day.12/09/2017Active Heparin Sodium, Porcine, (HEPARIN, PORCINE,) 5000 UNIT/ML injection Inject 5,000 Units under the skin every 8 (eight) hours.09/14/2018Active hydrOXYzine (ATARAX) 25 MG tablet Take 25 mg by mouth every 6 (six) hours as needed for anxiety.09/14/2018Active omeprazole (PriLOSEC) 40 MG capsule Take 40 mg by mouth 2 (two) times a day.Active QUEtiapine (SEROquel) 25 MG tablet 75 mg nightly.09/14/2018Active QUEtiapine (SEROquel) 50 MG tablet 50 mg every 6 (six) hours.09/14/2018Active torsemide (DEMADEX) 20 MG tablet Take 20 mg by mouth once a day.09/15/2018Active Active Problems ProblemNoted DateDiagnosed DwzqPiprdnbsny01/17/2018Circadian rhythm sleep naxodqly16/17/2018 Overview (09/14/2018): Last Assessment & Plan: Assessment: For past 3 years is awake during night time, goes to bed at 6am and uses CPAP throughout the day PLAN: - Will need follow up w/ sleep medicine upon discharge Hypertensive ciklbyhb35/17/2018Obstructive sleep apnea rprcezro96/17/2018Acute exacerbation of chronic obstructive pulmonary mqrjwxr2009/03/2018 Overview (02/01/2024): January SNOMED Diagnostic import Vicfzhk4309/03/2018 Overview (09/14/2018): Last Assessment & Plan: Assessment: Has been severely depressed since father committed suicide 8 years ago. Has not seeked help, but wishes to per mother. PLAN: - Cymbalta 60mg BID - dose increase d/t uncontrolled anxiety per pt - Psych consult to assist w/ Anxiety/depression that is inhibiting compliance with BiPAP - Seroquel 75mg qhs with 50mg PRN - atarax PRN Gnlua-dh-rznqwec respiratory rtzqagt2812/08/2017 Overview (09/14/2018): Last Assessment & Plan: Assessment: unclear etiology - pneumonia/infectious vs volume overload; component of OHS/CELESTINE - Lesslikely PE d/t CT chest and DVT scan (-) Completed course of empiric antibiotics with Levaquin and Ceftriaxone Echo bubble study neg for shunt - now back on home O2 requirements PLAN: - Continue weaning O2 requirements - BiPAP HS. - Patient sleep pattern is from 6am -4pm daily, wears bipap during this time not at night - Diuresis - torsemide 20mg daily. - s/p Diamox 250 mg daily x3 (09/07-09/09) Lumbago with hknlwyuj04/24/2016 Overview (09/14/2018): Last Assessment & Plan: . Vqmzecv5501/20/2016 Overview (09/14/2018): Last Assessment & Plan: PLAN: - Family wishes to have bariatric consult once on RNF. Hxhndxshdcenanytne79/23/2013 Overview (09/14/2018): Last Assessment & Plan: PLAN: - Hold testosterone shots Vitamin D yggppyoiim75/01/2013ack pain10/03/2012Extreme obesity with alveolar ivwhtwbojnpjbsc55/06/2012 Overview (09/14/2018): Last Assessment & Plan: Assessment: home BiPAP. Noncompliant. PLAN: - Encourage BiPAP at night & w/ naps - Psych consulted to assist w/ Anxiety/depression that is inhibiting compliance with BiPAP: increased cymbalta to 120mg/ seroquel 75mg qhs and PRN & atarax PRN Family history of malignant neoplasm of vlrjquhv08/06/2012 Overview (02/01/2024): January SNOMED Diagnostic import Gastroesophageal reflux jwomfyo1710/03/2012Renal stone10/03/20122144Kcagtv56/06/2012 Social History Tobacco UseTypesPacks/DayYears UsedDateSmoking Tobacco: FormerCigarettesQuit: 05/14/2017Smokeless Tobacco: NeverAlcohol UseStandard Drinks/WeekCommentsNo0 (1 standard drink = 0.6 oz pure alcohol)alcoholic in remissionSex and Gender InformationValueDate RecordedSex Assigned at BirthNot on fileLegal SexMale 09/12/2018 10:56 AM ESTGender IdentityNot on fileSexual OrientationNot on file Last Filed Vital Signs Vital SignReadingTime TakenCommentsBlood Rxcbafaq283/9409/18/2018 8:05 PM EST Yxmpj73829/21/2018 8:29 PM TFPGjdtmensbwo77.7 ??C (96.2 ??F)09/18/2018 8:05 PM ESTRespiratory Hxdd355809/18/2018 8:29 PM ESTOxygen Bijlcbicqq908%09/18/2018 8:31 PM ESTInhaled Oxygen Concentration--Supqty773.2 kg (448 lb)09/14/2018 9:51 PM JCXZshsxy358.8 cm (5' 10 )09/14/2018 9:51 PM ESTBody Mass Index64.28111/14/2017 9:51 PM EST Plan of Treatment Health MaintenanceDue DateLast DoneCommentsCT Rgkiaxmlples1972Colonoscopy 1972Colorectal Cancer Crxjqzgio1972FIT-DNA (Cologuard)1972FIT 1972FOBT08/10/19725511Yteabpyrrmqzd1972Annual Visit Topic1973MMR Vaccines (1 of 1 - Standard series)1973Hepatitis C Gvxsyaorz84/13/1990 DTaP/Tdap/Td Vaccines (1 - Tdap)1991Hepatitis B Vaccines (1 of 3 - 19+ 3- dose series)1991Pneumococcal Vaccine: Pediatrics (0 to 5 years) and At- Risk Patients (6 to 64 Years) (1 of 4 - PCV)1991HIB VaccinesAged OutNo longer eligible based on patient's age to complete this topicHPV VaccinesAged OutNo longer eligible based on patient's age to complete this topicHepatitis A VaccinesAged OutNo longer eligible based on patient's age to complete this topic IPV VaccinesAged OutNo longer eligible based on patient's age to complete this topicMeningococcal VaccineAged OutNo longer eligible based on patient's age to complete this topic Advance Directives * Full Resuscitation (Latest Code Status on File) Date ActivatedDate RevvmweeahiSxnmiksu95/17/2018 11:42 PM09/19/2018 2:32 AM
--- OUTSIDE RECORDS SUMMARY | 2025-10-24 19:01 | XMS_ITS | Patient Health Record ---
Author Organization [facility] Address [address] [place] [address] Care Team Providers Care Fusion Operator Name Role Phone ABDIFATAH SCHMID Unavailable [phone] Allergies Allergen (clinical drug ingredient) Drug/Non Drug Allergy documented on EMR Reaction Allergy Type Onset Date Status aztreonam Aztreonam Unknown Drug Allergy ActivegabapentinGabapentinUnknownDrug AllergyActivePenicillinUnknownDrug Allergy ActivetramadolTramadolUnknownDrug AllergyActive Reason For Referral No Information Medications Medication SIG (Take, Route, Frequency, Duration) Notes Start Date End Date Status Ipratropium-Albuterol 0.5-2.5 (3) MG/3ML 3 ml Inhalation every 6 hrs As needed Active Problems Problem Type SNOMED Code ICD Code Onset Dates Problem Status W/U Status Risk Notes Problem Obstructive sleep ap ene syndrome (disorder) (84154403) Obstructive sleep apnea (adult) (pediatric) (G47.33) ActiveconfirmedProblemNontraumatic intracerebral hemorrhage (352661040933444) Nontraumatic intracerebral hemorrhage, unspecified (I61.9)ActiveconfirmedProblem Hemiplegia of nondominant side as late effect of cerebrovascular disease (516591364)Hemiplegia and hemiparesis following cerebral infarction affecting left non-dominant side (I69.354)ActiveconfirmedProblemTracheostomy present (559803811)Tracheostomy status (Z93.0)ActiveconfirmedProblemPresence of other vascular implants and grafts (Z95.828)ActiveconfirmedProblemCOPD - Chronic obstructive pulmonary disease (27615687)Chronic obstructive pulmonary disease, unspecified COPD type (J44.9)ActiveconfirmedProblemAnxiety (84157840)Anxiety (F41.9)ZqwqtnzmgarfwyyLzogaewNownk-bo-looetuy respiratory failure (disorder) (41718933)Acute and chronic respiratory failure (J96.20)ActiveconfirmedProblem History of pulmonary embolus (829638851)History of pulmonary embolism (Z86.711) Activeconfirmed Plan Of Treatment No Information Insurance Providers Payer Name Payer Address Payer Phone Subscriber Number Group Number Insured Name Patient Relationship to Insured Coverage Start Date Coverage End Date Bind Benefits [address] [place] FIGUEROA [id number] Minesh Koengi Self - patient is the insured Medical (General) History Medical History History ICD Code Nontraumatic intracerebral hemorrhage, u nspecified I61.9 Hemiplegia and hemiparesis f ollowing cerebral infarction affecting left non-dominant side I69.354 Presence of other vascular implants and grafts Z95.828 History of pulmonary embolism Z86.711 Peritonitis K65.9 Chronic obstructive pulmonary disease, u nspecified COPD type J44.9 Anxiety F41.9 Acute and chronic respiratory failure J9 6.20 Acute kidney failure, unspecified N17.9 Tracheostomy status Z93.0 Surgical History Surgery Date(Month/Year) tracheostomy peg tubeHospitalization History Reason Date(Month/Year) I reviewed most recent hospital records
--- OUTSIDE RECORDS SUMMARY | 2025-10-24 19:01 | XMS_ITS | Clinical Summary ---
Author Organization [facility] Address [address], [address] [place] [address] Care Team Providers Care Music Professor Name Role Phone Sia Boucher MD Primary Care Provider [phone] Allergies Active AllergyReactionsCriticalityNoted DateCommentsLorazepamAnxietyMedium 09/28/2023ztreonamOther (See Comments)04/06/2023ee Skluwe8304/05/2023 Other Reaction(s): Unknown PfgidtowVzcaNvq56/01/2023 agitation Ukwamnvkba47/23/1140Lobdfvfuybg42/23/2023Soybean-Containing Drug Products 09/20/20238086Cyliyddl06/23/2023 Medications MedicationSigDispense QuantityRefillsLast FilledStart DateEnd DateStatus Atropine Sulfate 0.01 % SOLN Place 1 drop into both eyes 2 times dailyActive busPIRone (BUSPAR) 10 MG tablet Take 1 tablet by mouth in the morning and 1 tablet in the evening.Active chlorhexidine (PERIDEX) 0.12 % solution Swish and spit 15 mLs 2 times dailyActive Cholecalciferol (VITAMIN D3) 125 MCG (5000 UT) TABS Take 1 tablet by mouth dailyActive insulin glargine (LANTUS) 100 UNIT/ML injection vial Inject 15 Units into the skin nightlyActive albuterol (2.5 MG/3ML) 0.083% NEBU 3 mL, ipratropium 0.5 mg-albuterol 2.5 mg 0.5-2.5 (3) MG/3ML SOLN 3 mL Take 1 Dose by nebulization 2 times dailyActive lidocaine (HM LIDOCAINE PATCH) 4 % external patch Place 1 patch onto the skin daily On in am/ off in pmActive potassium chloride (KLOR-CON) 20 MEQ packet Take 40 mEq by mouth dailyActive topiramate (TOPAMAX) 100 MG tablet Take 0.5 tablets by mouth 2 times dailyActive acetaminophen (TYLENOL) 325 MG tablet Take 2 tablets by mouth every 6 hours as needed for PainActive albuterol (2.5 MG/3ML) 0.083% NEBU 3 mL, ipratropium 0.5 mg-albuterol 2.5 mg 0.5-2.5 (3) MG/3ML SOLN 3 mL Take 1 Dose by nebulization every 4 hours as needed for Wheezing or Shortness of BreathActive oxyCODONE (ROXICODONE) 5 MG immediate release tablet Take 1 tablet by mouth every 6 hours as needed for Pain.Active zinc oxide (DESITIN) 40 % ointment Apply 20 % topically every 4 hours as needed for Dry Skin Apply topically as needed.Active benzonatate (TESSALON) 100 MG capsule Take 1 capsule by mouth every 8 hours as needed for CoughActive dilTIAZem (DILACOR XR) 240 MG extended release capsule Take 1 capsule by mouth dailyActive hydrOXYzine HCl (ATARAX) 25 MG tablet Take 1 tablet by mouth mrgsyox1309/14/2018Active losartan (COZAAR) 50 MG tablet Take 1 tablet by mouth dailyActive Multiple Vitamins-Minerals (MULTIVITAMIN ADULT, MINERALS, PO) Take 1 tablet by mouth dailyActive nystatin (MYCOSTATIN) 634948 UNIT/GM powder Apply topically 2 times dailyActive Northridge 3 1000 MG CAPS Take 1 capsule by mouth dailyActive oxyCODONE 5 MG capsule Take 2 capsules by mouth daily. Every day shiftActive pantoprazole (PROTONIX) 40 MG tablet Take 1 tablet by mouth daily09/07/2023ctive QUEtiapine (SEROQUEL) 50 MG tablet Take 1 tablet by mouth every pouyxqq6609/14/2018Active QUEtiapine (SEROQUEL) 25 MG tablet Take 3 tablets by mouth kkhlwjn3109/14/2018Active spironolactone (ALDACTONE) 25 MG tablet Take 1 tablet by mouth every morningActive torsemide (DEMADEX) 20 MG tablet Take 1 tablet by mouth every wheyndb2009/15/2018Active ALPRAZolam (XANAX) 0.5 MG tablet Take 1 tablet by mouth every 8 hours as needed for Anxiety.Active Amino Acids-Protein Hydrolys (PRO-STAT PO) Take 30 mLs by mouth in the morning and at bedtimeActive hydrALAZINE (APRESOLINE) 10 MG tablet Take 1 tablet by mouth 4 times daily Hold SBP <100 P<60Active rivaroxaban (XARELTO) 20 MG TABS tablet Take 1 tablet by mouth every morning Per nurse Patricia/ osmar ledesma, not instructed to stop pre-op for OR 12-17-23.Active Active Problems ProblemNoted DateDiagnosed DateGAD (generalized anxiety disorder)09/24/2023 Prjbpubcups94/24/2023Nontraumatic subcortical hemorrhage of right cerebral gjnnicvljg46/24/2023Oropharyngeal ssbslqsyq05/24/2023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09/21/2023cute hypoxemic respiratory ytgmppp6509/20/20237154Kcdcna18/23/2023Type 2 diabetes mellitus with qoqggnk8409/20/2023 Overview (07/29/2025): Problem List Diagnosis Replacement Utility 07/29/2024 Replacing diagnoses that were inactivated after the 07/29 regulatory import Family History Medical HistoryRelationNameCommentsNo Known ProblemsFatherNo Known Problems MotherRelationNameStatusCommentsFatherMother Social History Tobacco UseTypesPacks/DayYears UsedDateSmoking Tobacco: NeverPassive Smoke Exposure: CurrentSmokeless Tobacco: Never Tobacco Cessation:Counseling Given: Not Answered Comments:Smoked occasional cigar Alcohol UseStandard Drinks/WeekCommentsNot Currently0 (1 standard drink = 0.6 oz pure alcohol) sober for 16 yrs [facility] UtilitiesAnswerDate RecordedIn the past 12 months has the Financial Guard, gas, oil, or water [employer] threatened to shut off services in your home?No09/22/2023Hunger Vital SignAnswerDate RecordedWithin the past 12 months, you worried that your food would run out before you got the money to buymore.Never true09/22/2023Within the past 12 months, the food you bought just didn't last and you didn't have money to get more.Never true 09/22/2023RAPARE - TransportationAnswerDate RecordedIn the past 12 months, has lack of transportation kept you from medical appointments or from getting medications?No09/22/2023In the past 12 months, has lack of transportation kept you from meetings, work, or from getting things needed for daily living?No 09/22/2023Housing Stability Vital SignAnswerDate RecordedIn the last 12 months, was there a time when you were not able to pay the mortgage or rent on time?No 09/22/2023In the last 12 months, how many places have you lived?In the last 12 months, was there a time when you did not have a steady place to sleep or slept in ashelter (including now)?No09/22/2023Interpersonal Safety ([facility])AnswerDate RecordedHow often does anyone, including family and friends, physically hurt you?Never09/22/2023Transportation Problems ([facility])AnswerDate RecordedIn the past 12 months, has lack of reliable transportation kept you from medical appointments, meetings, work or from getting things needed for daily living?Not on file09/23/2023Food InsecurityAnswerDate RecordedWithin the past 12 months, you worried that your food would run out before you got the money to buy more.Within the past 12 months, the food you bought just didn't last and you didn't have money to get more.Interpersonal Safety Domain Source: IP Abuse ScreeningAnswerDate RecordedRead-Only, Retired: Physical Abuse Zyrxku7209/22/2023Read-Only, Retired: Verbal QbuaaLybgba74/25/2023Read-Only, Retired: Emotional vlfvqYtfdhk87/25/2023Read-Only, Retired: Financial Abuse Kwbbwg9509/22/2023Read-Only, Retired: Sexual vdyxgJhrkjg76/25/2023Sex and Gender InformationValueDate RecordedSex Assigned at BirthNot on fileLegal SexMale 12/09/2012 10:28 PM ESTGender IdentityNot on fileSexual OrientationNot on file Last Filed Vital Signs Vital SignReadingTime TakenCommentsBlood Fiuonwgk441/8312/27/2023 8:34 AM EST Akyfb377612/27/2023 8:34 AM LDEHvafecopehp74 ??C (96.8 ??F)12/27/2023 8:34 AM EST Respiratory Qhpb578412/17/2023 12:30 PM ESTOxygen Iaflexlpab63%12/27/2023 8:34 AM ESTInhaled Oxygen Concentration--Rrueni268.9 kg (346 lb)12/27/2023 8:34 AM EST Naipgo071.5 cm (5' 9.5 )12/27/2023 8:34 AM ESTBody Mass Index50.36012/27/2023 8:34 AM EST Plan of Treatment Health MaintenanceDue DateLast DoneCommentsDiabetic foot exam1982Lipids 1982Depression Bjwpmf3508/10/1984HIV agypgo3608/10/1987Diabetic Alb to Cr ratio (uACR) test1990Diabetic retinal exam1990Hepatitis C screen 1990DTaP/Tdap/Td vaccine (1 - Tdap)1991Hepatitis B vaccine (1 of 3 - 19+ 3-dose series)1991Pneumococcal 50+ years Vaccine (1 of 2 - PCV) 08/10/19911847Cozjsjspvcf80/13/2017Colorectal Cancer Kznjnr8008/10/2017FIT/FOBT: Average risk2017Fecal-DNA (Cologuard): Average risk2017 Sigmoidoscopy/CT pjxpjfxlvdwu64/13/2017Shingles vaccine (1 of 2)2022nnual Wellness Visit (Medicare)4A1C test (Diabetic or Prediabetic)09/21/2024 3GFR test (Diabetes, CKD 3-4, OR last GFR 15-59)412/08/2023, 10/01/2023, 10/01/2023, Additional history existsFlu vaccine (#1)05/29/2025 08/18/2016COVID-19 Vaccine ( season)504/, 01/14/2021 Hepatitis A vaccineAged OutNo longer eligible based on patient's age to complete this topicHib vaccineAged OutNo longer eligible based on patient's age to complete this topicMeningococcal (ACWY) vaccineAged OutNo longer eligible based on patient's age to complete this topicMeningococcal B vaccineAged OutNo longer eligible based on patient's age to complete this topicPolio vaccineAged OutNo longer eligible based on patient's age to complete this topic Procedures Procedure NamePriorityDate/TimeAssociated DiagnosisCommentsPOCT ARTERIALRoutine 10/01/2023 4:39 AM EST HEMOGLOBIN T0QWtqznbo79/24/2023 6:00 AM EST from Last 3 Months or Most Recently Relevant to Health Maintenance Results * Hemoglobin A1c (09/21/2023 6:00 AM EST)ComponentValueRef RangeTest Method Analysis TimePerformed AtPathologist SignatureHemoglobin A1C5.44.8 - 5.9 % 09/21/2023 11:41 AM [facility] LABSpecimen (Source) Anatomical Location / LateralityCollection Method / VolumeCollection Time Received TimeBLOOD SPECIMEN / Wzyjopa8709/21/2023 6:00 AM EST09/21/2023 11:39 AM EST Narrative Authorizing ProviderResult TypeResult StatusJessica Yoder DOCHEMISTRY ORDERABLES Final ResultPerforming OrganizationAddressCity/State/ZIP CodePhone Number [facility] [address] [place] [address], [facility] [phone] from Last 3 Months or Most Recently Relevant to Health Maintenance Additional Health Concerns InfectionOnset DateLast IndicatedCandida auris Comment:STRICT ISOLATION REQUIRED ON ALL FUTURE ADMISSIONS Added from external infection. / Insurance Advance Directives * Full Code (Latest Code Status on File) Date ActivatedDate RsildrdblyaIrvtnigk06/23/2023 11:21 AM10/01/2023 3:27 PM Care Teams Team MemberRelationshipSpecialtyStart DateEnd Date Sia Boucher MD [address] [place] [address] PCP - GeneralFamily Wciondls86/23/23
--- OUTSIDE RECORDS SUMMARY | 2025-10-24 19:01 | XMS_ITS ---
Author Organization [facility] Care Team Providers Care Psychology Fellow Name Role Phone JAIMIE*, ITRI Unavailable Unavailable Farzaneh Perez Unavailable Allergies and adverse reactions Code CodeSystem Substance Reaction Severity StartDate Concern Status 7984 RXNORM Penicillin Unknown 09/28/2018 active 67754 RXNORM Tramadol Unknown 09/28/2018 active Care Team Name Role Address Phone Organization Dates ITRI JAIMIE* PCP [address], [place], [address], [place] (Office): : [facility] 09/27/2018 - 10/16/2018 Farzaneh Perez [place], [place] (Office) : : [facility] 09/27/2018 - 10/16/2018 Immunizations Immunization Status Vaccine Details Vaccine Code CodeSystem Date Notes Influenza cancelled Influenza, high-dose, split virus, quadrivalent, injectable, preservative free 197 CVX created date: 10/02/2018 consent date: 10/01/2018 Resident refused x3 attempts TB 2 Step Mantoux Skin Test completed tuberculin skin test; unspecified formulation lotNumber: [id number] expiry: 01/31/2021 Mfg: [employer] -pasteur Given 0.1 ml Left Forearm intradermally Step 1 of Multi-step with next step required 98 CVX created date: 09/28/2018 consent date: 09/27/2018 administer ed date: 09/28/2018 Educated by Trinh cruz on 09/27/2018 Given by Trinh cruz RN pneumococcal polysaccharide PPV23 cancelled pneumococcal polysaccharide vaccine, 23 valent 33 CVX created date: 10/02/2018 consent date: 10/01/2018 Resident refused x3 attempts. Mental Status Section Date Assessment Total Score Description 10/16/2018 BIMS 15 cognitively int act CAM 0 No delirium ind icated PHQ-9 00 10/10/20181458TTZG39ngekgmtivja bkritpUMM3Uq delirium indicatedPHQ-900 Insurance Providers Coverage Status Coverage Type Relationship to Subscriber Member Identifier Subscriber Identifier Group Identifier Payer Identifier and Other information Code: 1 Code System OID:2.16.84 0.1.420308. 3.221.5 Code System Name: Source of Payment Typology ([facility]) Display: Medicare Translation : Code: [place] Code System: OID:2.16.84 0.1.523421. 6.255.1336 Code System Name: Insurance Type Code ([id number]) Display Name: Medicare Part A Problems Problem # Description Date of onset Resolved Date Code CodeSystem Concern Status 1 VITAMIN D DEFICIENCY, UNSPECIFIED 10/08/[address] active 2 MUSCLE WEAKNESS (GENERALIZED) 09/30/[address] active 3 NEED FOR ASSISTANCE WITH PERSONAL CARE 09/30/[address] active 4 UNSTEADINESS ON FEET 09/30/[address] active 5 ACUTE AND CHRONIC RESPIRATORY FAILURE WITH HYPOXIA 09/28/[address] active 6 ANXIETY DISORDER, UNSPECIFIED 09/28/[address] active 7 CHRONIC OBSTRUCTIVE PULMONARY DISEASE WITH (ACUTE) EXACERBATION 09/28/[address] active 8 MAJOR DEPRESSIVE DISORDER, RECURRENT, UNSPECIFIED 09/28/[address] active 9 MORBID (SEVERE) OBESITY WITH ALVEOLAR HYPOVENTILATION 09/28/[address] active 10 OBESITY, UNSPECIFIED 09/28/[address] active 11 OBSTRUCTIVE SLEEP APNEA (ADULT) (PEDIATRIC) 09/28/[address] active 12 OTHER MALAISE 09/28/[address] active 13 PAIN IN RIGHT ELBOW 09/28/[address] active 14 UNSPECIFIED COMBINED SYSTOLIC (CONGESTIVE) AND DIASTOLIC (CONGESTIVE) HEART FAILURE 09/28/[address] active 15 ACUTE AND CHRONIC RESPIRATORY FAILURE WITH HYPERCAPNIA 09/27/[address] active 16 ENCOUNTER FOR OTHER SPECIFIED AFTERCARE 09/27/[address] active 17 OTHER ENCEPHALOPATHY 09/27/[address] active Reason for Referral No Reasons for Referral Entered Social History Social History Observation Description Start Date End Date Code Code System Current Smoking Status Tobacco smoking consumption unknown 018376802 SNOMED CT Sex Assigned At Male 1970 12322-1 [facility] Gender Identity Sexual Orientation Vital Signs Code Code System Vitals Name Values and Units Timing Information 87820-6 [facility] O2 % BldC Oximetry Value=97.0 Units= % 10/16/2018 8462-4 INC Blood Pressure-Diastolic Value=72 Un its=mmHg 10/16/2018 8480-6 LOINC Blood Pressure-Systolic Yaiqk=383 Un its=mmHg 10/16/2018 13879-5 LOINC Pain Level Value=4.0 10/15/2018 9279-1 INC Respiratory Rate Value=16.0 Units=/m in 10/14/2018 8310-5 LOINC Body Temperature Value=98.4 Units= F 10/14/2018 8867-4 LOINC Heart rate Value=99.0 Units=/min 88803-6 LOINC Weight Npmkh=496.0 Units=Lbs 10/2017 8302-2 LOINC Height Value=69.0 Units=Inches 09/28/2018
--- OUTSIDE RECORDS SUMMARY | 2025-10-24 19:01 | XMS_ITS | Patient Health Record ---
Author Organization [facility] Address [address] [place] [address] Care Team Providers Care Vice President Of Manufacturing Name Role Phone Cait Garcia Primary Care Provider Corina Colby Unavailable [phone] Mayur Diop Unavailable [phone] Allergies Allergen (clinical drug ingredient) Drug/Non Drug Allergy documented on EMR Reaction Allergy Type Onset Date Status PenicillinUnknownDrug AllergyActive Reason For Referral No Information Medications Medication SIG (Take, Route, Frequency, Duration) Notes Start Date End Date Status Clindamycin 300 mg 10d 300 mg tablets on e tab orally twice a day; Duration: 10 days 01/09/2023ctive Social History Sex Assigned At : Social History Observation Description Sex Assigned At Male Problems Problem Type SNOMED Code ICD Code Onset Dates Problem Status W/U Status Risk Notes Problem Anxiety (42532457) Anxiety (F41.9) ActiveconfirmedProblemDepression (255300050)Depression (F32.9)Activeconfirmed ProblemPosttraumatic stress disorder (40385922)PTSD (post-traumatic stress disorder) (F43.10)Activeconfirmed Encounters Encounter Location Date Provider Diagnosis [facility] [address] [place] [address] 04/06/2025 [facility] [place] [address]/23/2025[facility] [place] [address]/ [facility] [place] [address]/04[facility] [facility] [place] [address]/01/2025Kimberly OllomPTSD (post-traumatic stress disorder) F43.[address] [address] [place] [address]/Kimberly OllomPTSD (post-traumatic stress disorder) F43.[address] [address] [address] [place] [address]/ Corina OllomPTSD (post-traumatic stress disorder) F43.[address] [facility] [place] [address]/Kimberly OllomPTSD (post-traumatic stress disorder) F43.[address] [address] [address] [place] [address] 04/03/2025Kimberly OllomPTSD (post-traumatic stress disorder) F43.10[facility] [address] [place] [address]/Kimberly OllomPTSD (post- traumatic stress disorder) F43.[address] [facility] [place] [address]/10/2024Joseph VelizPTSD (post-traumatic stress disorder) F43.[address] [facility] [place] [address]/Joseph VelizPTSD (post- traumatic stress disorder) F43.10 Assessments Encounter Date Diagnosis (ICD Code) Assessment Notes Treatment Notes Treatment Clinical Notes Section Notes 12/30/2024 PTSD (post-traumatic stress diso rder) (ICD-10 - F43.10) 01/16/2025PTSD (post-traumatic stress disorder) (ICD-10 - F43.10)02/19/2025PTSD (post-traumatic stress disorder) (ICD-10 - F43.10)03/13/2025PTSD (post-traumatic stress disorder) (ICD-10 - F43.10)04/03/2025PTSD (post-traumatic stress disorder) (ICD-10 - F43.10)04/20/2025PTSD (post-traumatic stress disorder) (ICD- 10 - F43.10)07/21/2025PTSD (post-traumatic stress disorder) (ICD-10 - F43.10) 05/29/2025PTSD (post-traumatic stress disorder) (ICD-10 - F43.10) Plan Of Treatment No Information Insurance Providers Payer Name Payer Address Payer Phone Subscriber Number Group Number Insured Name Patient Relationship to Insured Coverage Start Date Coverage End Date MEDICARE CGS 1 [facility] [place] [address] [id number] Preston VANN - patient is the [id number] 2014[facility] [address] [place] [id number] Hemant BURNETT - patient is the spouse of the [id number] 2022LORI JONES (Devoted) [facility] [address] [place] [id number] Preston VANN - patient is the [id number] 2024
--- OUTSIDE RECORDS SUMMARY | 2025-10-24 19:02 | XMS_ITS | Clinical Summary ---
Author Organization [facility] Address [address] 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 Role Phone Generic Provider, No Assigned Pcp MD Primary Car e Provider Unavailable Allergies Active AllergyReactionsCriticalityNoted PgvoNhpzshswPzookbntxBpbva92/09/2023 GabapentinUnknown,Nrsozvdi59/28/2018PenicillinsUnknown,Other10/03/2012 Tolerated ceftriaxone in August 2018 UpqRjclfjw74/20/2023 family reported soy allergy TramadolUnknown,GI intolerance,Nausea/iffpydzm45/12/2014 Social History Tobacco UseTypesPacks/DayYears UsedDateSmoking Tobacco: Never AssessedSex and Gender InformationValueDate RecordedSex Assigned at BirthNot on fileLegal Sex Male09/23/2022 9:42 AM ESTGender IdentityNot on fileSexual OrientationNot on file Last Filed Vital Signs Vital SignReadingTime TakenCommentsBlood Srrefjus207/8708/31/2023 2:16 AM EDT Fkiyl63757/03/2023 2:16 AM ZGRSyvcmuspjam67 ??C (96.8 ??F)08/31/2023 2:16 AM EDT Respiratory Emlo921010/31/2022 2:16 AM EDTOxygen Slfrphmwtb69%08/31/2023 2:16 AM EDTInhaled Oxygen Concentration--Vqgons587 kg (412 lb 4.2 oz)10/03/2023 9:00 AM ATUKsprlm527.3 cm (5' 9.02 )09/07/2023 11:00 AM ESTBody Mass Index60.85 09/07/2023 11:00 AM EST Plan of Treatment Health MaintenanceDue DateLast DoneCommentsCT Mnenxlxtllog1972Colonoscopy 1972Colorectal Cancer Uhfbvvayj06/13/0544Thobqztjeuatkg1972FIT-DNA (Cologuard)1972FIT1972HIV Wmfaeunuo1972Lipid Panel1972 Qjthdioedulpc1972Yearly Adult Pfzthnnc1972MMR Vaccines (1 of 1 - Standard series)1973Hepatitis C Spzrkdmrx61/13/1990Hepatitis B Vaccines (1 of 3 - 19+ 3-dose series)1991Pneumococcal Vaccine (1 of 2 - PCV)1991 DTaP/Tdap/Td Vaccines (1 - Tdap)1994PSA Prostate Cancer Screening 2022Zoster Vaccines (1 of 2)2022TSH Level/04/2023, 08/30/2023, 07/28/2023reatinine Level/, 10/24/2023, 10/23/2023, Additional history existsDiabetes Djcrgrmsi35, 10/24/2023, 10/23/2023, Additional history existsPotassium Level10/25/2024 10/25/2023, 10/24/2023, 10/23/2023, Additional history existsCOVID-19 Vaccine ( season)/, 01/14/2021Influenza Vaccine (#1) /HIB VaccinesAged OutNo longer eligible based on patient's age to complete this topicHPV VaccinesAged OutNo longer eligible based on patient's age to complete this topicHepatitis A VaccinesAged OutNo longer eligible based on patient's age to complete this topicIPV VaccinesAged OutNo longer eligible based on patient's age to complete this topicMeningococcal VaccineAged OutNo longer eligible based on patient's age to complete this topic Rotavirus VaccinesAged OutNo longer eligible based on patient's age to complete this topic Procedures Procedure NamePriorityDate/TimeAssociated DiagnosisCommentsBASIC METABOLIC PANEL Glztzbc9110/25/2023 5:06 AM EST TSHAdd-On10/04/2023 5:30 AM EST from Last 3 Months or Most Recently Relevant to Health Maintenance Results * (ABNORMAL) Basic metabolic panel (10/25/2023 5:06 AM EST)ComponentValueRef RangeTest MethodAnalysis TimePerformed AtPathologist HpsovmojhEdxyldx705(H)74 - 99 mg/dL LAB CHEMISTRY METHOD 10/25/2023 8:11 AM [facility] TQSJjmzgt514267 - 145 mmol/L LAB CHEMISTRY METHOD 10/25/2023 8:11 AM [facility] LABPotassium3.63.5 - 5.3 mmol/L LAB CHEMISTRY METHOD 10/25/2023 8:11 AM [facility] GCIAracrqto28522 - 107 mmol/L LAB CHEMISTRY METHOD 10/25/2023 8:11 AM [facility] RLOXddvywnyuhl2019 - 32 mmol/L LAB CHEMISTRY METHOD 10/25/2023 8:11 AM [facility] LABAnion Yun2850 - 20 mmol/L LAB CHEMISTRY METHOD 10/25/2023 8:11 AM [facility] LABUrea Quxwulbu24(H)6 - 23 mg/dL LAB CHEMISTRY METHOD 10/25/2023 8:11 AM [facility] LABCreatinine1.300.50 - 1.30 mg/dL LAB CHEMISTRY METHOD 10/25/2023 8:11 AM [facility] OPLiIHC68>60 mL/min/1.73m*2 LAB CHEMISTRY METHOD 10/25/2023 8:11 AM [facility] LABComment: Calculations of estimated GFR are performed using the 2020 CKD-EPI Study Refit equation without therace variable for the IDMS-Traceable creatinine methods. https://jasn.asnjournals.org/content//ASN.6773949059 Calcium8.98.6 - 10.3 mg/dL LAB CHEMISTRY METHOD 10/25/2023 8:11 AM [facility] LABSpecimen (Source)Anatomical Location / LateralityCollection Method / VolumeCollection TimeReceived TimeBlood Blood sample taken from central line / Iofarpw5110/25/2023 5:06 AM EST10/25/2023 5:11 AM EST Narrative Authorizing ProviderResult TypeResult StatusGiorgio Muller MDLAB BLOOD ORDERABLES Final ResultPerforming OrganizationAddressCity/State/ZIP CodePhone Number [facility] [address] [place] [address] * TSH (10/04/2023 5:30 AM EST)ComponentValueRef RangeTest MethodAnalysis Time Performed AtPathologist SignatureThyroid Stimulating Hormone2.590.44 - 3.98 mIU/L LAB IMMUNOASSAY METHOD 10/04/2023 11:19 AM [facility] LABSpecimen (Source)Anatomical Location / LateralityCollection Method / VolumeCollection TimeReceived TimeBlood Blood sample taken from central line / Nopwnau0210/04/2023 5:30 AM EST10/04/2023 5:31 AM EST Narrative [facility] - 10/04/2023 11:19 AM EST TSH testing is performed using different testing methodology at [facility] than at other [facility]. Direct result comparisons should only be made within the same method. Authorizing ProviderResult TypeResult StatusNestejinder PALUMBO BLOOD ORDERABLESFinal ResultPerforming OrganizationAddressCity/State/ZIP CodePhone Number [facility] [address] [place] [address] from Last 3 Months or Most Recently Relevant to Health Maintenance Additional Health Concerns InfectionOnset DateLast IndicatedCandida auris/ Insurance MemberSubscriberPlan / Payer (Effective 2014-Present)Name:Minesh Koenig Member ID:[id number] Relation to Subscriber:SelfName:Minesh Koenig Subscriber ID:[id number] Payer ID:Not on file Group ID:Not on file Type:Not on file Address: [place] [phone] * Guarantor: Minesh Koenigcotrinity TypeRelation to PatientDate of BirthPhone Billing Address[facility]/IqqzlkGmtu1970 [address] [place] [phone] Care Teams Team MemberRelationshipSpecialtyStart DateEnd Date Generic Provider, No Assigned Pcp, [facility] Xfknpbyc63/[facility]23
--- OUTSIDE RECORDS SUMMARY | 2025-10-24 19:02 | XMS_ITS | Clinical Summary ---
Author Organization [facility] Address [address] [place] [address] Care Team Providers [employer] Name Role Phone Yulisa Stewart DO Unavailable Sia Boucher MD Unavailable [phone] Julienne Neal MD Unavailable [phone] Julienne Neal MD Primary Care Provider [phone] Allergies Active AllergyReactionsCriticalityNoted XdlqDrylnnpvBbdzcrzeunFebmwdil14/28/2018 PenicillinsOther: See Oamzdqvw18/06/2012 Tolerated ceftriaxone in August 2018, cefazolin and cefepime in 2022 KofWabdpce83/20/2023 family reported soy allergy Tramadol YibDkcfocvl15/12/2014 Medications MedicationSigDispense QuantityRefillsLast FilledStart DateEnd DateStatus metFORMIN ER (GLUCOPHAGE XR) 500 mg 24 hr tablet Take 2 tablets by mouth daily with dinner. 60 tablet ctive acetaminophen (TYLENOL) 650 mg/20.3 mL soln 20.3 mL by ORAL/FEEDING TUBE route every 4 hours as needed for fever (specify temp.) (Fever and moderate pain (4-6), severe pain (>/=7)). Do not exceed 5 doses in 24 hours.09/06/2023ctive acetylcysteine (MUCOMYST) 200 mg/mL (20 %) solution Inhale 1 mL as instructed every 4 hours as needed.09/06/2023ctive albuterol (PROVENTIL) 2.5 mg/3 mL nebulizer solution Inhale 3-6 mL as instructed as directed.09/06/2023ctive Artificial Tear, Hypromellose, 0.3 % gel Use 2 Drops in both eyes as needed (dry eyes).09/06/2023ctive atropine 1 % ophthalmic solution Use 1 Drop in the left eye two times a day. 5 mL ctive BIPAP setting: IPAP=[id number], EPAP=[id number], 4 lpm O2 bleed in; mask to comfort, tubing, heated humidity, filters. Machine education. Lifetime supplies. G47.33, E.66.2, J44.1. Fax compliance in 4 weeks to [id number]/09/2023ctive bisacodyl (DULCOLAX) 10 mg supp 1 Suppository by RECTAL route once daily as needed.09/06/2023ctive blood sugar diagnostic test strip Use as instructed for testing once daily. Dx: E11.9 100 Each ctive Blood-Glucose Meter Use as directed for testing once daily. Dx: E11.9 1 Each 09/06/2023ctive cholecalciferol (VITAMIN D-3) 5,000 unit tab Indications:Vitamin D deficiencyTake 1 tablet by mouth once daily. 30 tablet ctive dextrose (TRUEPLUS) 15 gram/32 mL oral gel Take 32 mL by mouth as needed. Use when blood glucose is less than 70 mg/dL (60 mg/dL if ) and patient demonstrates diminished level of consciousness but is able to swallow without risk of aspiration Each 32 mL PACKET of dextrose oral gel delivers a DOSE = 15 GRAMS of CARBOHYDRATE --- Administer ONLY if the patient is awake/alert and able to swallow.09/06/2023ctive dextrose 10% Inject 125 mL intravenously as needed (low blood sugar). Use when blood glucose is less than 70 mg/dL (60 mg/dL if ) and patient has IV access Program on smart pump using dextrose 10% bolus file - NONCYTOTOXIC VESICANT -09/06/2023ctive DULoxetine (CYMBALTA) 60 mg capsule Take 1 capsule by mouth two times a day. 180 capsule ctive glucagon 1 mg/mL injection Inject 1 mg intramuscularly as needed. Use when blood glucose is less than 70 mg/dL (60 mg/dL if ) and patient has no IV hmvtdf8409/06/2023ctive heparin 5,000 unit/mL injection Inject 1.5 mL subcutaneously every 12 hours.09/06/2023ctive insulin lispro 100 unit/mL injection SUBCUTANEOUS, EVERY 6 HOURS ADMINISTER CORRECTIONAL INSULIN REGARDLESS OF MEAL OR NUTRITION INTAKE Scale 3 If Blood Glucose (mg/dL) is: Less than 110 Give 0 units 111-150 Give 1 unit 151-200 Give 3 units 201-250 Give 6 units 251-300 Give 9 units 301-350 Give 12 units 351-400 Give 15 units Greater than 400 Give 15 units and Notify Provider Notify provider if 2 consecutive blood glucose values in the previous 24 hours are greater than 250 mg/dL and there have been no changes to the insulin regimen in the previous 24 hours.09/06/2023ctive Lancets lancets Use as instructed for testing once daily. Dx: E11.9 100 Each ctive lidocaine (SALONPAS) 4 % patch Apply 1 Patch as directed once daily. APPLY TO: SHOULDER Both - Remove patch after 12 hours.09/06/2023ctive Oral Medication Containers (SHARPSAFETY CONTAINER) [facility] Use as directed when checking blood sugar. Dx: E11.9 1 Each ctive oxyCODONE IR (ROXICODONE) 5 mg immediate release tablet 1 tablet by ORAL/FEEDING TUBE route every 4 hours as needed.ctive potassium chloride (KLOR-CON) 20 mEq packet 20-40 mEq by ORAL/FEEDING TUBE route as needed (see admin instructions). 09/06/2023ctive potassium chloride ER (KLOR-CON) 20 mEq tablet Take 1-2 tablets by mouth as needed (see admin instructions). KCl Replacement Protocol: Use potassium CHLORIDE replacement if potassium is less than 4.0 and phosphate is 3.5 or greater. DO NOT USE IFCREATININE GREATER THAN 2, ON DIALYSIS, OR WEIGHT LESS THAN 50KG K+ Level Dose Re-Check 3.9 20 mEq AM labs 3.6-3.8 40 mEq AM labs 3.4-3.5 40 mEq q1h x 2 after 2 hours Less than 3.4 Give IV Only Goal serum K+ 4-5 mEq/L Swallow whole; DO NOT crush or chew. If patient unable to swallow whole tablet; dissolve whole tablet (do not crush) in 120 mL of water prior to administration (may take up to 2 minutes to dissolve).09/06/2023ctive potassium chloride in water 20 mEq/100 mL IVPB Inject 100 mL intravenously as needed (see admin instructions). Give IV when unable to take oral orK less than 3.4 KCl Replacement Protocol: Use potassium CHLORIDE replacement if potassium is less than 4.0. DO NOT USE IF CREATININE GREATER THAN 2, ON DIALYSIS, OR WEIGHT LESS THAN 50KG K+ Level Dose Re-Check 3.9 20 mEq AM labs 3.6-3.8 20 mEq q1h x 2 AM labs 3.0-3.5 20 mEq q1h x 3 after 2 hours < 3.0 20 mEq q1h x 3 and contact physician Goal serum K+ 4-5 mEq/L NONCYTOTOXIC VESICANT If ordered with infusion rate range, start with maximum infusion rate and decrease rate if infusionis not kstujttto76/09/2023ctive sodium chloride 0.9 % nebulizer solution USE 9ML ONCE DAILY DIRECTED 300 mL ctive topiramate (TOPAMAX) 50 mg tablet Take 1 tablet by mouth two times a day.09/06/2023ctive furosemide (LASIX) 40 mg/4 mL soln Inject 4 mL intravenously every 12 hours.09/06/2023ctive cloNIDine HCl (CATAPRES) 0.2 mg tablet 1 tablet by ORAL/FEEDING TUBE route every 12 hours.09/06/2023ctive pantoprazole (PROTONIX) 40 mg/20 mL oral liquid Take 10 mL by mouth daily at 6 am.09/07/2023ctive zinc oxide (DESITIN) 13 % crea Apply to affected area as needed.09/06/2023ctive ipratropium-albuterol (DUONEB) 0.5 mg-3 mg(2.5 mg base)/3 mL nebu Inhale 3 mL as instructed every 4 hours as needed for wheezing/shortness of breath.09/06/2023ctive Chlorhexidine Gluconate (PERIDEX) 0.12 % solution Use 15 mL as instructed every 6 hours. Rinse around mouth for 30 seconds then iefirnhtffs29/09/2023ctive magnesium sulfate 2 gram/50 mL (4 %) pgbk iv piggyback in sterile water Inject 50 mL intravenously as needed (See admin instructions). Magnesium Replacement Protocol DO NOT USE FOR PATIENTS WITH SCR 2 or Greater, DIALYSIS, RHABDOMYOLYSIS, DKA, ON THE HYPOTHERMIA PROTOCOL, AGE less than 15, OR Weight less than 40kg Mg Level Dose Re-Check 1.7-2.0 2g over 2 hr with am labs 1.0-1.6 4g over 4 hr (2g over 2 hrs x 2 doses) with am labs Less than 1 6g over 6 hr* (2g over 2 hrs x 3 doses) 2 hours *Notify Provider for Mg less than 1 -Goal serum Mg 2.0-2.5 mg/dL -Max infusion rate = 1 g/hr Magnesium Sulfate IV bolus will be infused at a rate of 1 gram/hr.09/06/2023 Active ondansetron, PF, (ZOFRAN) 4 mg/2 mL soln Inject 4 mg intravenously every 6 hours as needed. Give IV push over 2 minutes 09/06/2023ctive QUEtiapine (SEROQUEL) 50 mg tablet Take 1 tablet by mouth at bedtime as needed.09/06/2023ctive QUEtiapine (SEROQUEL) 25 mg tablet Take 1 tablet by mouth once daily.09/07/2023ctive lceoib-tcvfcwgf-lyirvrx (ZENPEP) 5,000-17,000- 24,000 unit delayed release capsule Indications:Pancreatic insufficiency (HCC)Take 3 capsules by mouth with meals and at bedtime. 1080 capsule ctive Active Problems ProblemNoted DateDiagnosed DateNicotine use disorder, F17.History of exploratory cqlxbtdlpo69/07/2023 Assessment & Plan (09/06/2023 12:47 PM EST): Assessment: s/p exploratory laparotomy, abdominal washout, and gastric wedge resection on 08/12. Has sutures and retention sutures in place Has corpak with TF at goal and diarrhea PLAN: -- discussed suture removal with surgery - their plan is to wait at least 1 month from surgery for removal -- Continue TF @goal, aniket marlyn fiber supplements today for diarrhea Assessment & Plan (09/04/2023 10:48 AM EST): Assessment: s/p exploratory laparotomy, abdominal washout, and gastric wedge resection on 08/12. Has sutures and retention sutures in place PLAN: -- discussed suture removal with surgery - their plan is to wait at least 1 month from surgery for removal Parapneumonic hlhiacmu50/05/2023 Assessment & Plan (09/06/2023 12:37 PM EST): Assessment: - S/p chest tube placement 09/01. - Exudative by Light's criteria. - Pleural fluid LDH 435. - Now with minimal output. - Pleural fluid culture negative. - Chest tube removed by IR 09/05 with post removal CXR completed - Remains stable on vent Plan: -- Monitor respiratory status and wean vent as tolerated by patient. -- CXR PRN Assessment & Plan (09/05/2023 11:39 AM EST): Assessment: - S/p chest tube placement 09/01. - Exudative by Light's criteria. - Pleural fluid LDH 435. - Now with minimal output. - Pleural fluid culture negative. - Chest tube removed by IR this morning. Plan: -- Post chest tube removal CXR this afernoon. -- Monitor respiratory status and wean vent as tolerated by patient. Assessment & Plan (09/04/2023 10:44 AM EST): Assessment: S/p chest tube placement 09/01 Plan: - Continue CT to water seal - Daily CXR - Monitor respiratory status Assessment & Plan (09/03/2023 1:31 PM EST): Assessment: S/p chest tube placement 09/01 -- CXR with improvement Plan: - Continue CT to water seal - Daily CXR - Monitor respiratory status Assessment & Plan (09/02/2023 9:38 AM EST): S/p chest tube placement 09/01 -- CXR with improvement Morbid obesity with BMI of 60.0-69.9, adult09/01/2023 Assessment & Plan (09/06/2023 12:26 PM EST): Assessment: - BMI 61.18. Plan: - Nutrition consulted, appreciate recs - Diet education/lifestyle modification prior to d/c. Assessment & Plan (09/05/2023 9:48 AM EST): Assessment: - BMI 61.18. Plan: - Nutrition consulted, appreciate recs - Diet education/lifestyle modification prior to d/c. Assessment & Plan (09/04/2023 10:44 AM EST): Assessment: BMI 61.18 Plan: - Nutrition consulted, appreciate recs - Diet education/lifestyle modification prior to d/c Assessment & Plan (09/03/2023 1:31 PM EST): Assessment: BMI 61.18 Plan: - Nutrition consulted, appreciate recs - Diet education/lifestyle modification prior to d/c Spleen hematoma, subsequent stavnkisv30/03/2023 Assessment & Plan (09/06/2023 12:27 PM EST): Assessment: - Pt with splenic hematoma on outside imaging 10 cm x 1.9 cm. Hgb 8.9 on admission (was 8.6 at discharge 4 days prior). - Since no disc sent by , primary team repeated CT chest/abd/pelvis. CT abd showed interval decrease in rim-enhancing trace perisplenic fluid collection; no internal gas bubbles; small upper left abdominal cruz-incisional seroma. - Hemoglobin remains stable. ?? PLAN: -- Trend CBC daily and PRN -- Monitor for s/s bleeding, none today -- Transfuse for Hgb <7 or symptomatic anemia. -- Not candidate for AC d/t recent ICH, is s/p IVC filter Assessment & Plan (09/05/2023 9:45 AM EST): Assessment: - Pt with splenic hematoma on outside imaging 10 cm x 1.9 cm. Hgb 8.9 on admission (was 8.6 at discharge 4 days prior). - Since no disc sent by , primary team repeated CT chest/abd/pelvis. CT abd showed interval decrease in rim-enhancing trace perisplenic fluid collection; no internal gas bubbles; small upper left abdominal cruz-incisional seroma. - Hemoglobin remains stable. ?? PLAN: -- Trend CBC daily. -- Monitor for s/s bleeding. -- Transfuse for Hgb <7 or symptomatic anemia. -- Not candidate for AC d/t recent ICH. Assessment & Plan (09/04/2023 10:39 AM EST): Assessment: pt with splenic hematoma on outside imaging 10 cm x 1.9 cm. Abdomen non-tender. Hgb 8.9 on admission (was 8.6 at discharge 4 days prior). Since no disc sent by , primary team repeated CT chest/abd/pelvis. CT abd showed interval decrease in rim-enhancing trace perisplenic fluid collection; no internal gas bubbles; small upper left abdominal cruz-incisional seroma. ?? Hgb 7.5<--8.3 PLAN: - Trend CBC q12h - Monitor for s/s bleeding - Transfuse for Hgb <7 or symptomatic anemia - Not candidate for AC d/t recent ICH Assessment & Plan (09/03/2023 1:35 PM EST): Assessment: pt with splenic hematoma on outside imaging 10 cm x 1.9 cm. Abdomen non-tender. Hgb 8.9 on admission (was 8.6 at discharge 4 days prior). Since no disc sent by , primary team repeated CT chest/abd/pelvis. CT abd showed interval decrease in rim-enhancing trace perisplenic fluid collection; no internal gas bubbles; small upper left abdominal cruz-incisional seroma. ?? Hgb 8.3 PLAN: - Trend CBC q12h - Monitor for s/s bleeding - Transfuse for Hgb <7 or symptomatic anemia - Not candidate for AC d/t recent ICH Assessment & Plan (09/02/2023 9:57 AM EST): Assessment: pt with splenic hematoma on outside imaging 10 cm x 1.9 cm. Abdomen non-tender. Hgb 8.9 on admission (was 8.6 at discharge 4 days prior). Since no disc sent by , primary team repeated CT chest/abd/pelvis. CT abd showed interval decrease in rim-enhancing trace perisplenic fluid collection; no internal gas bubbles; small upper left abdominal cruz-incisional seroma. ?? Hgb 9.4--> 8.1 PLAN: -- CBC q12 -- TF Assessment & Plan (09/01/2023 11:07 AM EDT): Assessment: pt with splenic hematoma on outside imaging 10 cm x 1.9 cm. Abdomen currently non-tender. Hgb 8.9 on admission (was 8.6 at discharge 4 days prior). Since no disc sent by , primary team repeated CT chest/abd/pelvis. CT abd showed interval decrease in rim-enhancing trace perisplenic fluid collection; no internal gas bubbles; small upper left abdominal cruz-incisional seroma. ??No organized abdominal wall collection amenable to drain. Hgb 9.4 PLAN: -- CBC q12 -- starting TF once no longer NPO for IVC filter Assessment & Plan (08/31/2023 4:52 AM EDT): A: pt with splenic hematoma on outside imaging. P: No acute intervention at this point. Pt is HDS. Pleural sphkligv23/03/8848Jqaslqr04/03/2023 Assessment & Plan (09/06/2023 12:35 PM EST): Assessment: - Chronic allen with c/o dysuria [...] cefdinir through 09/07 for gram negative coverage. Assessment & Plan (09/05/2023 11:35 AM EST): Assessment: - Chronic allen with c/o dysuria and burning on admission. Allen changed out on admission 08/31 and UA with pyuria, nitrites and LE. - Most recent UCx NGTD. - Completed Pyridium to help with c/o bladder pressure. - Started on cefepime due to isolated fever, urine cultures negative. PLAN: -- Continue allen. -- Change cefepime to cefdinir for two more days for gram negative coverage. Assessment & Plan (09/04/2023 10:40 AM EST): Assessment: chronic allen. C/o dysuria and burning on admission. Allen changed out on admission 08/31 and UA with pyuria, nitrites and LE. Most recent UCx NGTD. ID signed off 09/01 PLAN: - f/u urine cx - Pyridium for 2 days to help with c/o bladder pressure - Continue allen - Continue cefepime for now Assessment & Plan (09/03/2023 1:32 PM EST): Assessment: chronic allen. C/o dysuria and burning on admission. Allen changed out on admission 08/31 and UA with pyuria, nitrites and LE. Most recent UCx NGTD. ID signed off 09/01 PLAN: - Repeat UA; UCx if indicated - Pyridium for 2 days to help with c/o bladder pressure - Continue allen - Continue Atbx Assessment & Plan (09/02/2023 9:17 AM EST): Assessment: chronic allen. C/o dysuria and burning on admission. Allen changed out on admission 08/31 and UA with pyuria, nitrites and LE. PLAN: -- urine culture - NGTD -- DC Cipro (has PCN allergy) -- ok for pyridium for 2 days to help with c/o bladder pressure -- attempt med for bladder spasm -- ID following signed off 09/01 Assessment & Plan (09/01/2023 11:03 AM EDT): Assessment: chronic allen. C/o dysuria and burning on admission. Allen changed out on admission 08/31 and UA with pyuria, nitrites and LE. PLAN: -- urine culture - NGTD -- continue Cipro (has PCN allergy) -- ID following Pulmonary azjhqdjj13/03/2023 Assessment & Plan (09/06/2023 12:26 PM EST): Assessment: - RLL PE seen on CT chest 08/31. Recent ICH with splenic hematoma.. - IVC filter placed per IR 11/5. - Bilateral upper ext superficial thrombophlebitis. - Lower ext ultrasound with acute DVTs in right distal external iliac and common femoral vein and left popliteal vein, posterior tibial veins, and peroneal veins from proximal to distal. ?? PLAN: -- Not candidate for AC d/t recent ICH. -- IVC in situ. Assessment & Plan (09/05/2023 9:47 AM EST): Assessment: - RLL PE seen on CT chest 08/31. Recent ICH with splenic hematoma.. - IVC filter placed per IR /5. - Bilateral upper ext superficial thrombophlebitis. - Lower ext ultrasound with acute DVTs in right distal external iliac and common femoral vein and left popliteal vein, posterior tibial veins, and peroneal veins from proximal to distal. ?? PLAN: -- Not candidate for AC d/t recent ICH. -- IVC in situ. Assessment & Plan (09/04/2023 10:43 AM EST): Assessment: RLL PE seen on CT chest 08/31. Recent ICH with splenic hematoma.. IVC filter placed per IR 11/5 Bilateral upper ext superficial thrombophlebitis Lower ext ultrasound with acute DVTs in right distal external iliac and common femoral vein and left popliteal vein, posterior tibial veins, and peroneal veins from proximal to distal. ?? PLAN: - Not candidate for AC d/t recent ICH - IVC in situ Assessment & Plan (09/03/2023 1:34 PM EST): Assessment: RLL PE seen on CT chest 08/31. Recent ICH with splenic hematoma.. IVC filter placed per IR 11/5 Upper and lower DVT ultrasounds positive for blood clots PLAN: - Not candidate for AC d/t recent ICH - IVC in situ Assessment & Plan (09/02/2023 9:51 AM EST): Assessment: RLL PE seen on CT chest 08/31. Recent ICH with splenic hematoma. PLAN: -- IR consulted for IVC filter placement -- upper and lower DVT ultrasounds positive for blood clots -- not candidate for AC d/t recent ICH Assessment & Plan (09/01/2023 10:43 AM EDT): Assessment: RLL PE seen on CT chest 08/31. Recent ICH with splenic hematoma. PLAN: -- IR consulted for IVC filter placement -- upper and lower DVT ultrasounds pending -- not candidate for AC d/t recent ICH MRSA oemaqnucx79/25/2023 Assessment & Plan (09/06/2023 12:32 PM EST): Assessment: - During recent admission, was being [...] indicated. -- Wean vent settings as able. Assessment & Plan (09/05/2023 11:35 AM EST): Assessment: - During recent admission, was being treated with IV vanco (transitioned to PO Linezolid as outpatient) through 09/09 for MRSA pneumonia per ID. - Resumed on IV vanco while inpatient per ID recommendations. PLAN: -- D/c vanc and restart linezolid PO as patient is planned for discharge to [facility]. -- Trend WBC/fever curve. -- CXR as clinically indicated. -- Wean vent settings as able. Assessment & Plan (09/04/2023 10:39 AM EST): Assessment: During recent admission, was being treated with IV vanco (transitioned to PO Linezolid as outpatient) through 09/09 for MRSA pneumonia per ID. PLAN: - Continue IV vanco (through 09/09) while inpatient per prior ID recommendations; restart linezolidPO at [facility] - Trend WBC/fever curve - Continue cefepime - Daily CXR - Wean vent settings as able Assessment & Plan (09/03/2023 1:33 PM EST): Assessment: During recent admission, was being treated with IV vanco (transitioned to PO Linezolid as outpatient) through 09/09 for MRSA pneumonia per ID. PLAN: - Continue IV vanco (through 09/09) while inpatient per prior ID recommendations; restart linezolidPO at [facility] - Trend WBC/fever curve - Continue cefepime - Daily CXR - Wean vent settings as able Assessment & Plan (08/24/2023 12:02 PM EDT): Treatment with vancomycin while inpatient, transition to linezolid on discharge At risk for spread of lpgxoteht70/16/2023Malnutrition of mild cuhbhk4708/13/2023 Primary yaxkmrnmtrcy13/16/4969Ptcichodvval96/15/2023 Assessment & Plan (08/12/2023 11:16 AM EDT): WBC elevated to 17 overnight with fevers C/o abd pain as well Plan - Continue vanco, add nolan - ID consulted - CT C/A/P ordered MASON (acute kidney injury)08/12/2023 Assessment & Plan (08/27/2023 11:40 AM EDT): Assessment: - Course c/b MASON requiring CRRT. - Now off CRRT, responded to lasix challenge, now with free water deficit. - Creatinine remains stable. - Hypernatremia and free water deficit from 08/20 improved with lasix gtt, D5W, increased TF flushes. Plan: -- Continue free water flushes. -- Continue lasix BID for volume control. -- Follow up with nephro outpatient. -- Trend renal function daily. -- Continue allen for strict I/O's. Assessment & Plan (08/26/2023 12:36 AM EDT): Assessment: - Course c/b MASON requiring CRRT. - Now off CRRT, responded to lasix challenge, now with free water deficit. - Creatinine remains stable. - Hypernatremia and free water deficit from 08/20 improved with lasix gtt, D5W, increased TF flushes. Plan: -- Continue free water flushes for hypernatremia. -- Continue PRN diuresis for volume control. -- Follow up with nephro outpatient. -- Trend renal function daily. -- Continue allen for strict I/O's. Assessment & Plan (08/25/2023 5:36 AM EDT): IHD line placed in SICU. Started on CRRT. Electrolytes normalized. Filter continues to clot. CVVHD stopped. Responded to lasix challenge, now with free water deficit. - Nephrology following, appreciate recs - Cr stable - Hypernatremia and free water deficit from 08/20 improved with lasix gtt, D5W, increased TF flushes. - Lasix gtt discontinued and lasix 40 mg IV TID initiated 08/24. Fluid status goal of net -2L. - 08/25: net -1.5 last 24 hours Assessment & Plan (08/24/2023 12:04 PM EDT): IHD line placed in SICU. Started on CRRT. Electrolytes normalized. Filter continues to clot. CVVHD stopped. Responded to lasix challenge, now with free water deficit. - Nephrology following, appreciate recs - Cr stable - Hypernatremia and free water deficit from 08/20 improved with lasix gtt, D5W, increased TF flushes. - Lasix gtt discontinued and lasix 40 mg IV TID initiated 08/24. Fluid status goal of net -2L. Assessment & Plan (08/23/2023 3:05 PM EDT): IHD line placed in SICU. Started on CRRT. Electrolytes normalized. Filter continues to clot. CVVHD stopped. Responded to lasix challenge, now with free water deficit. - Nephrology following, appreciate recs - Cr stable - Patient hypernatremic with free water deficit 7.4L on 08/20. Diuresis re- initiated with 40 mg lasix + lasix gtt 5mg/hr with free water replacement D5W + tube feed flushes. - Hypernatremia improved 08/21 with free water deficit 2.5L. Lasix gtt and D5W replacement 25cc/hr + tube feed flushes. - 08/22 fluid status remains neutral. Will advance lasix drip to 7.5 mg/hr. Discontinue D5W and extra tube feed flushes. Goal of net -2L. - 08/23 Patient net negative 3L. Will decrease lasix gtt to 5mg/hr. Assessment & Plan (08/22/2023 12:56 PM EDT): IHD line placed in SICU. Started on CRRT. Electrolytes normalized. Filter continues to clot. CVVHD stopped. Responded to lasix challenge, now with free water deficit. - Nephrology following, appreciate recs - Cr stable - Patient hypernatremic with free water deficit 7.4L on 08/20. Diuresis re- initiated with 40 mg lasix + lasix gtt 5mg/hr with free water replacement D5W + tube feed flushes. - Hypernatremia improved 08/21 with free water deficit 2.5L. Lasix gtt and D5W replacement 25cc/hr + tube feed flushes. - 08/22 fluid status remains neutral. Will advance lasix drip to 7.5 mg/hr. Discontinue D5W and extra tube feed flushes. Goal of net -2L. Assessment & Plan (08/21/2023 12:51 PM EDT): IHD line placed in SICU. Started on CRRT. Electrolytes normalized. Filter continues to clot. CVVHD stopped. Responded to lasix challenge, now with free water deficit. - Nephrology following, appreciate recs - Cr stable - Patient hypernatremic with free water deficit 7.4L on 08/20. Diuresis re- initiated with 40 mg lasix + lasix gtt 5mg/hr with free water replacement D5W + tube feed flushes. - Hypernatremia improved 08/21 with free water deficit 2.5L. Continue lasix gtt and D5W [id number]/hr + tube feed flushes. Assessment & Plan (08/20/2023 1:54 PM EDT): IHD line placed in SICU. Started on CRRT. Electrolytes normalized. Filter continues to clot. CVVHD stopped. Responded to lasix challenge, now with free water deficit. - Nephrology following, appreciate recs - Cr improving - Patient hypernatremic with free water deficit 7.4L on 08/20. Diuresis re- initiated with 40 mg lasix + lasix gtt 5mg/hr with free water replacement D5W + tube feed flushes. Assessment & Plan (08/18/2023 8:41 PM EDT): IHD line placed in SICU Started on CRRT. Electrolytes normalized. Filter continues to clot. CVVHD stopped. Responded to lasix challenge - Nephrology following, appreciate recs - Adequate urine off Lasix - Cr improving Assessment & Plan (08/17/2023 3:01 PM EDT): IHD line placed in SICU Started on CRRT. Electrolytes normalized. Filter continues to clot. CVVHD stopped. Responded to lasix challenge - Nephrology following, appreciate recs - Adequate urine off Lasix - Cr improving Assessment & Plan (08/16/2023 3:39 PM EDT): IHD line placed in SICU Started on CRRT. Electrolytes normalized. Filter continues to clot. CVVHD stopped. Responded to lasix challenge - Nephrology following, appreciate recs - Lasix gtt stopped Assessment & Plan (08/15/2023 1:44 PM EDT): IHD line placed in SICU Started on CRRT. Electrolytes normalized. Filter continues to clot. Cr 2.1 from 1.9 Responded to lasix challenge. PRN lasix if UOP drops Nephrology on consult. Appreciate recs Assessment & Plan (08/14/2023 1:06 PM EDT): IHD line placed in SICU Started on CRRT. Electrolytes normalized. Filter continues to clot. Cr slightly improved to 1.9 from 2.55 from 3.2. Hold off TDC per nephro. Will lasix challenge once stopping CRRT. Nephrology on consult. Appreciate recs Assessment & Plan (08/13/2023 12:28 PM EDT): IHD line placed in SICU Started on CRRT. Electrolytes normalized. Cr slightly improved to 2.55 from 3.2. Nephrology on consult. Appreciate recs Assessment & Plan (08/12/2023 11:14 PM EDT): IHD line placed in SICU Started on CRRT Assessment & Plan (08/12/2023 11:18 AM EDT): sCr elevated to 2.22 overnight from 0.7 Plan - Send Fena - Place [facility] - [facility] [id number]/2023Pneumonia of both lower lobes due to infectious organism 08/09/2023 Assessment & Plan (08/27/2023 11:40 AM EDT): Assessment: - Hospital course c/b MRSA pneumonia. - Continues to require ventilator support. - ID following. Plan: -- Follow up ID recommendations. -- Continue vancomycin for presumed MRSA pneumonia while inpatient. Plan to transition to mg BID with EOT 09/05. Assessment & Plan (08/26/2023 12:26 AM EDT): Assessment: - Hospital course c/b MRSA pneumonia. - Continues to require ventilator support. - ID following. Plan: -- Follow up ID recommendations. -- Continue vancomycin for presumed MRSA pneumonia while inpatient. Plan to transition to [id number] mg BID with EOT 09/05. Assessment & Plan (08/25/2023 5:34 AM EDT): - Patient with previous diagnosis of COPD/asthma. Increasing requirements 10/23 overnight concerning for infectious process vs hypervolemia vs multifactorial etiology. Infectious work-up negative thus far. - Discontinued micofungin 08/22, meropenem 08/23. Will continue vancomycin for presumed MRSA pneumonia while inpatient. Plan to transition to linezolid 600 mg BID with EOT 09/05. Assessment & Plan (08/24/2023 12:02 PM EDT): - Patient with previous diagnosis of COPD/asthma. Increasing requirements 10/23 overnight concerning for infectious process vs hypervolemia vs multifactorial etiology. Infectious work-up negative thus far. - Discontinued micofungin 25, meropenem 08/23. Will continue vancomycin for presumed MRSA pneumonia while inpatient. Plan to transition to linezolid 600 mg BID with EOT 09/05. Assessment & Plan (08/23/2023 3:04 PM EDT): - Patient with previous diagnosis of COPD/asthma. Increasing requirements 1023 overnight concerning for infectious process vs hypervolemia vs multifactorial etiology. Infectious work-up negative thus far. - Discontinued micofungin 08/22, meropenem 08/23. Will continue vancomycin for presumed MRSA pneumonia x14d total per ID (EOT 09/04). Assessment & Plan (08/22/2023 12:51 PM EDT): MRSA on previous aspiration, treated with vanc. Now on meropenem, fluconazole. Consider tobramycin,daptomycin per ID. - Patient with previous diagnosis of COPD/asthma. Increasing requirements 08/20 overnight concerning for infectious process vs hypervolemia vs multifactorial etiology. Infectious work-up negative thus far. Antimicrobial therapy escalated to meropenem (day 10), vancomycin (day 3), micafungin. RepeatCXR unchanged. Blood culture 08/21 NGTD. ID following, will discuss antimicrobial plan. Assessment & Plan (08/21/2023 12:50 PM EDT): MRSA on previous aspiration, treated with vanc. Now on meropenem, fluconazole. Consider tobramycin,daptomycin per ID. - Patient with previous diagnosis of COPD/asthma. Increasing requirements 08/20 overnight concerning for infectious process vs hypervolemia vs multifactorial etiology. Infectious work-up negative thus far. Antimicrobial therapy escalated to meropenem, vancomycin, micafungin. Will plan to repeat CXRafter procedure. Assessment & Plan (08/20/2023 1:49 PM EDT): MRSA on previous aspiration, treated with vanc. Now on meropenem, fluconazole. Consider tobramycin,daptomycin per ID. - Patient with previous diagnosis of COPD/asthma. Increasing requirements 08/20 overnight concerning for infectious process vs hypervolemia vs multifactorial etiology. Infectious work-up pursued: expanded respiratory panel, respiratory culture, procalcitonin, repeat CXR, f/u ID recs. Assessment & Plan (08/18/2023 8:42 PM EDT): MRSA from sputum, on vanco x7d per ID D/c Vanc Assessment & Plan (08/16/2023 3:37 PM EDT): MRSA from sputum, on vanco x7d per ID D/c Vanc Assessment & Plan (08/15/2023 1:43 PM EDT): MRSA from sputum, on vanco x7d per ID Assessment & Plan (08/14/2023 1:04 PM EDT): MRSA from sputum, on vanco Assessment & Plan (08/13/2023 12:27 PM EDT): MRSA from sputum, on vanco Assessment & Plan (08/12/2023 11:15 PM EDT): MRSA from sputum, on vanco Assessment & Plan (08/12/2023 11:12 AM EDT): 08/07: tracheal aspirate + MRSA plan: vancomycin x 7 day beginning 08/09 Assessment & Plan (08/11/2023 7:32 AM EDT): 08/07: tracheal aspirate + MRSA plan: vancomycin x 7 day beginning 08/09 Assessment & Plan (08/09/2023 10:42 AM EDT): 08/07: tracheal aspirate + MRSA plan: vancomycin x 7 day beginning 08/09 Failure to wean from mechanical [id number]/09/2023 Assessment & Plan (08/27/2023 11:40 AM EDT): Assessment: - Patient with previous diagnosis of COPD/asthma. - Course complicated by MRSA pneumonia and pleural effusions. - 08/21 Trach exchange, diagnostic bronchoscopy. Post-procedure CXR unchanged from prior. Plan: -- Continue to wean from vent as tolerated by patient. -- Continue antimicrobial per ID recommendations for MRSA pneumonia. Assessment & Plan (08/26/2023 12:24 AM EDT): Assessment: - Remains on vent PS 35% and 5 PEEP. - Patient with previous diagnosis of COPD/asthma. - Course complicated by MRSA pneumonia and pleural effusions. - 08/21 Trach exchange, diagnostic bronchoscopy. Post-procedure CXR unchanged from prior. Plan: -- Continue to wean from vent as tolerated by patient. -- Continue vanco per ID recommendations for MRSA pneumonia. Assessment & Plan (08/25/2023 5:34 AM EDT): Currently on vent on PS - Patient with previous diagnosis of COPD/asthma. Increasing requirements 08/20 overnight concerning for infectious process vs hypervolemia vs multifactorial etiology. - 08/21 Trach exchange, diagnostic bronchoscopy. Post-procedure CXR unchanged from prior. - 08/22 Continues to require FiO2 40%, PEEP 10-12. Suspect patient will be stable for LTACH when FiO2 is consistently <50% and PEEP is 10 or less. 08/23: Respiratory status is stable 08/24: FiO2 40%, PEEP 8 08/25: FiO2 35%, PEEP 8 Assessment & Plan (08/24/2023 12:01 PM EDT): Currently on vent on PS - Patient with previous diagnosis of COPD/asthma. Increasing requirements 08/20 overnight concerning for infectious process vs hypervolemia vs multifactorial etiology. - 08/21 Trach exchange, diagnostic bronchoscopy. Post-procedure CXR unchanged from prior. - 08/22 Continues to require FiO2 40%, PEEP 10-12. Suspect patient will be stable for LTACH when FiO2 is consistently <50% and PEEP is 10 or less. 08/23: Respiratory status is stable 08/24: FiO2 40%, PEEP 8 Assessment & Plan (08/23/2023 2:58 PM EDT): Currently on vent on PS - Patient with previous diagnosis of COPD/asthma. Increasing requirements 08/20 overnight concerning for infectious process vs hypervolemia vs multifactorial etiology. - 08/21 Trach exchange, diagnostic bronchoscopy. Post-procedure CXR unchanged from prior. - 08/22 Continues to require FiO2 40%, PEEP 10-12. Suspect patient will be stable for LTACH when FiO2 is consistently <50% and PEEP is 10 or less. 10/26: Respiratory status is stable Assessment & Plan (08/22/2023 12:47 PM EDT): Currently on vent on PS - Patient with previous diagnosis of COPD/asthma. Increasing requirements 10/23 overnight concerning for infectious process vs hypervolemia vs multifactorial etiology. - 08/21 Trach exchange, diagnostic bronchoscopy. Post-procedure CXR unchanged from prior. - 08/22 Continues to require FiO2 40%, PEEP 10-12. Suspect patient will be stable for LTACH when FiO2 is consistently <50% and PEEP is 10 or less. - Patient is desaturating when turned onto his R side, which is clinically consistent with CXR findings. Assessment & Plan (08/21/2023 12:50 PM EDT): Currently on vent on PS - Patient with previous diagnosis of COPD/asthma. Increasing requirements 10/23 overnight concerning for infectious process vs hypervolemia vs multifactorial etiology. - Trach exchange +/- diagnostic bronchoscopy today. Will repeat CXR after procedure this afternoon 08/21. Assessment & Plan (08/20/2023 1:46 PM EDT): Currently on vent on PS - Patient with previous diagnosis of COPD/asthma. Increasing requirements 10/23 overnight concerning for infectious process vs hypervolemia vs multifactorial etiology. Assessment & Plan (08/18/2023 8:43 PM EDT): Currently on vent on PS . Wean as tolerated Home BiPAP 22/12 Assessment & Plan (08/16/2023 3:37 PM EDT): Currently on vent on PS . Wean as tolerated Home BiPAP 22/12 Assessment & Plan (08/15/2023 1:43 PM EDT): Currently on vent on PS 16/12 and FiO2 of 40%. Wean as tolerated Home BiPAP 22/12 Assessment & Plan (08/14/2023 1:04 PM EDT): Currently on vent on PC with PEEP of 14 and FiO2 of 50%. Wean as tolerated Assessment & Plan (08/13/2023 12:26 PM EDT): Currently on vent on PC with PEEP of 14 and FiO2 of 60%. Wean as tolerated Therapeutic drug [id number]/07/2023 Assessment & Plan (08/11/2023 7:33 AM EDT): -BLE SCDs -SC Heparin 7500units Q8h, PTT normal on this dose Assessment & Plan (08/09/2023 11:48 AM EDT): -BLE SCDs -SC Heparin 7500units Q8h, PTT normal on this dose Assessment & Plan (08/08/2023 7:52 AM EDT): -BLE SCDs -SC Heparin 7500units Q8h, PTT normal on this dose -heparin held 08/08 morning for tentative Trach/peg Assessment & Plan (08/07/2023 11:45 AM EDT): -BLE SCDs -SC Heparin 7500units Q8h, PTT normal on this dose -heparin held 08/07 morning for tentative Trach/peg Assessment & Plan (08/05/2023 9:28 AM EDT): -BLE SCDs -SC Heparin 7500units Q8h, PTT normal on this dose -heparin held 08/06 morning for tentative Trach/peg Assessment & Plan (08/05/2023 8:54 AM EDT): -BLE SCDs -SC Heparin 7500units Q8h, PTT normal on this dose Assessment & Plan (08/04/2023 9:14 AM EDT): -BLE SCDs -SC Heparin 7500units Q8h, PTT normal on this dose Difficult [id number]/2023lister of left eidpvsre54/04/2023lister of back 08/01/2023Hemiplegia and hemiparesis following nontraumatic intracerebral hemorrhage affecting left non-dominant side07/30/2023 Assessment & Plan (09/06/2023 12:25 PM EST): Assessment: - Hx CVA with residual left sided weakness, 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 - Recent right thalamic ICH s/p trach - Neurologically remains intact with no focal deficits. Plan: -- Continue to monitor neuro exam. -- Cont work with PT/OT. 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 - Neurologically remains intact with no focal deficits. Plan: -- Monitor neuro exam. -- PT/OT. Assessment & Plan (09/04/2023 10:38 AM EST): Assessment: Hx CVA w/residual left sided weakness, 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 Recent right thalamic ICH. Plan: - Monitor neuro exam - PT/OT Assessment & Plan (09/03/2023 1:29 PM EST): Assessment: Hx CVA w/residual left sided weakness, 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 Recent right thalamic ICH Plan: - Monitor neuro exam - PT/OT Assessment & Plan (09/02/2023 9:16 AM EST): A: hx of left sided weakness, 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 P: CTM Assessment & Plan (09/01/2023 10:42 AM EDT): A: hx of left sided weakness, 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 P: CTM Assessment & Plan (08/31/2023 5:29 AM EDT): A: hx of left sided weakness, 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 P: CTM Assessment & Plan (08/27/2023 11:39 AM EDT): Assessment: - S/p distal M2 watershed infarct on right 07/28. - Continues to have LLE weakness with 0/5 strength in LUE. - Neuro previously re-consulted for new anisocoria 08/23, now signed off. Plan: -- Q4 hour neuro checks. Assessment & Plan (08/26/2023 12:22 AM EDT): Assessment: - S/p distal M2 watershed infarct on right 07/28. - Continues to have LLE weakness with 0/5 strength in LUE. - Neuro previously re-consulted for new anisocoria 08/23, now signed off. Plan: -- Q4 hour neuro checks. Assessment & Plan (08/24/2023 12:00 PM EDT): Q4 hour neuro checks, LLE weakness improving, LUE strength remains 0/5, anisocoria improved 08/24 from prior Assessment & Plan (08/23/2023 2:54 PM EDT): Q4 hour neuro checks, LLE weakness improving, LUE strength remains 0/5, new anisocoria of L eye 08/23 Assessment & Plan (08/22/2023 12:37 PM EDT): Q4 hour neuro checks Assessment & Plan (08/21/2023 12:47 PM EDT): Q4 hour neuro checks Assessment & Plan (08/20/2023 1:44 PM EDT): Q4 hour neuro checks Assessment & Plan (08/18/2023 8:43 PM EDT): Q 4 hour neuro checks Assessment & Plan (08/15/2023 1:42 PM EDT): Q 4 hour neuro checks Assessment & Plan (08/14/2023 1:04 PM EDT): Q 4 hour neuro checks Assessment & Plan (08/13/2023 12:25 PM EDT): Q 4 hour neuro checks Assessment & Plan (08/12/2023 11:17 PM EDT): Q 4 hour neuro checks Assessment & Plan (08/12/2023 11:13 AM EDT): PT/OT engaged Assessment & Plan (08/11/2023 7:33 AM EDT): PT/OT engaged Assessment & Plan (2023 7:50 AM EDT): PT/OT engaged Assessment & Plan (08/08/2023 7:48 AM EDT): PT/OT engaged Assessment & Plan (08/07/2023 11:38 AM EDT): PT/OT engaged Assessment & Plan (08/06/2023 11:34 AM EDT): PT/OT engaged Assessment & Plan (08/05/2023 8:50 AM EDT): PT/OT engaged Assessment & Plan (08/04/2023 9:10 AM EDT): PT/OT engaged Assessment & Plan (08/02/2023 10:31 AM EDT): PT/OT engaged Assessment & Plan (08/01/2023 11:32 AM EDT): PT/OT engaged Assessment & Plan (07/30/2023 8:08 AM EDT): PT/OT engaged ICH (intracerebral hemorrhage)07/28/2023 Assessment & Plan (08/27/2023 11:39 AM EDT): Assessment: - Distal M2 watershed infarct on right on 07/28. - Neurology re-consulted given new anisocoria (left pupil > right pupil) 08/23. - 08/23: CT brain, head/neck CTA with contrast without evidence of acute change. - Anisocoria improved 08/24. - Neurology now signed off. Plan: -- Maintain SBP <160 -- Neuro monitoring per protocol. Assessment & Plan (08/26/2023 12:15 AM EDT): Assessment: - Distal M2 watershed infarct on right on 07/28. - Neurology re-consulted given new anisocoria (left pupil > right pupil) 08/23. - 08/23: CT brain, head/neck CTA with contrast without evidence of acute change. - Anisocoria improved 08/24. - Neurology now signed off. Plan: -- Maintain SBP <160 -- Neuro monitoring per protocol. Assessment & Plan (08/24/2023 11:59 AM EDT): Distal M2 watershed infarct on right on 07/28. Neuro exam: 0/5 on LUE. 2/5 LLE, able to wiggle toes and ankle and press against examiner. 4/5 on RUE and RLL. Maintain sBP <160 - Re-consulted neurology given new anisocoria 08/23 - Stroke neurology team evaluated. Stat CT brain without contrast, head/neck CTA with contrast without evidence of acute change. - Anisocoria improved 08/24 Assessment & Plan (08/23/2023 3:07 PM EDT): Distal M2 watershed infarct on right on 07/28. Neuro exam: 0/5 on LUE. 2/5 LLE, able to wiggle toes and ankle and press against examiner. 4/5 on RUE and RLL. Neuro stroke signed off. Maintain sBP <160. - Re-consulted neurology given new anisocoria 08/23 - Stroke neurology team to see. Ordered stat CT brain without contrast, head/neck CTA with contrast. Assessment & Plan (08/22/2023 12:37 PM EDT): Distal M2 watershed infarct on right on 07/28. Neuro exam: 0/5 on LUE. 1/5 LLE, able to wiggle toes and ankle and press against examiner. 4/5 on RUE and RLL. Neuro stroke signed off. Maintain sBP <160. Assessment & Plan (08/21/2023 12:46 PM EDT): Distal M2 watershed infarct on right on 07/28. Neuro exam: 0/5 on LUE. 1/5 LLE, able to wiggle toes and ankle and press against examiner. 4/5 on RUE and RLL. Neuro stroke signed off. Maintain sBP <160. Assessment & Plan (08/20/2023 1:44 PM EDT): Distal M2 watershed infarct on right on 07/28. No change to neuro exam. 0/5 on LUE and LLE. 4/5 on RUE and RLL. Neuro stroke signed off. SBP <160 Assessment & Plan (08/18/2023 8:42 PM EDT): Distal M2 watershed infarct on right on 07/28. No change to neuro exam. 0/5 on LUE and LLE. 4/5 on RUE and RLL Neuro stroke signed off. SBP <160 Assessment & Plan (08/15/2023 1:42 PM EDT): Distal M2 watershed infarct on right on 07/28. No change to neuro exam. 0/5 on LUE and LLE. 4/5 on RUE and RLL Neuro stroke signed off. SBP <160 Assessment & Plan (08/14/2023 1:04 PM EDT): Distal M2 watershed infarct on right on 07/28. No change to neuro exam. 0/5 on LUE and LLE. 4/5 on RUE and RLL Neuro stroke signed off. SBP <160 Assessment & Plan (08/13/2023 12:23 PM EDT): Distal M2 watershed infarct on right on 07/28. Assessment & Plan (08/12/2023 11:13 AM EDT): # R BG ICH PLAN: Post-arrest CTH without acute change CTA of limited diagnostic utility, no appreciable underlying vascular etiology of hemorrhage stroke neurology primary - q4h Neuro checks - SBP < 160mmHg - outpatient MRI Assessment & Plan (08/11/2023 7:34 AM EDT): # R BG ICH PLAN: Post-arrest CTH without acute change CTA of limited diagnostic utility, no appreciable underlying vascular etiology of hemorrhage stroke neurology primary - q4h Neuro checks - SBP < 160mmHg - outpatient MRI Assessment & Plan (2023 7:49 AM EDT): # R BG ICH PLAN: Post-arrest CTH without acute change CTA of limited diagnostic utility, no appreciable underlying vascular etiology of hemorrhage stroke neurology primary - q4h Neuro checks - SBP < 160mmHg - outpatient MRI Assessment & Plan (08/09/2023 8:58 AM EDT): # R BG ICH PLAN: Post-arrest CTH without acute change CTA of limited diagnostic utility, no appreciable underlying vascular etiology of hemorrhage stroke neurology primary - q4h Neuro checks - SBP < 160mmHg - outpatient MRI Assessment & Plan (08/08/2023 7:49 AM EDT): # R BG ICH PLAN: Post-arrest CTH without acute change CTA of limited diagnostic utility, no appreciable underlying vascular etiology of hemorrhage stroke neurology primary - q4h Neuro checks - SBP < 160mmHg - outpatient MRI Assessment & Plan (08/07/2023 11:38 AM EDT): # R BG ICH PLAN: Post-arrest CTH without acute change CTA of limited diagnostic utility, no appreciable underlying vascular etiology of hemorrhage stroke neurology primary - q4h Neuro checks - SBP < 160mmHg - outpatient MRI Assessment & Plan (08/06/2023 11:34 AM EDT): # R BG ICH PLAN: Post-arrest CTH without acute change CTA of limited diagnostic utility, no appreciable underlying vascular etiology of hemorrhage stroke neurology primary - q4h Neuro checks - SBP < 160mmHg - outpatient MRI Assessment & Plan (08/05/2023 8:50 AM EDT): # R BG ICH PLAN: Post-arrest CTH without acute change CTA of limited diagnostic utility, no appreciable underlying vascular etiology of hemorrhage stroke neurology primary - q4h Neuro checks - SBP < 160mmHg - outpatient MRI Assessment & Plan (08/04/2023 9:13 AM EDT): # R BG ICH PLAN: Post-arrest CTH without acute change CTA of limited diagnostic utility, no appreciable underlying vascular etiology of hemorrhage stroke neurology primary - q4h Neuro checks - SBP < 160mmHg - outpatient MRI Assessment & Plan (08/03/2023 11:33 AM EDT): # R BG ICH PLAN: Post-arrest CTH without acute change CTA of limited diagnostic utility, no appreciable underlying vascular etiology of hemorrhage stroke neurology primary - q4h Neuro checks - SBP < 160mmHg - can consider MRI/MRA today now that airway secured - will discuss with Vascular Neurology, may have weight limitations - will discuss with MRI - PT/OT as appropriate - VTE ppx: SCDs on, sub q heparin - PT/OT Assessment & Plan (08/02/2023 10:35 AM EDT): # R BG ICH PLAN: Post-arrest CTH without acute change CTA of limited diagnostic utility, no appreciable underlying vascular etiology of hemorrhage stroke neurology primary - q4h Neuro checks - SBP < 160mmHg - can consider MRI/MRA today now that airway secured - will discuss with Vascular Neurology, may have weight limitations - will discuss with MRI - PT/OT as appropriate - VTE ppx: SCDs on, sub q heparin - PT/OT Assessment & Plan (08/01/2023 11:33 AM EDT): # R BG ICH PLAN: stroke neurology primary - q4h Neuro checks - SBP < 160mmHg - CTA when able pending resp status - flat trial today - PT/OT as appropriate - VTE ppx: SCDs on, sub q heparin - PT/OT Assessment & Plan (07/31/2023 10:48 AM EDT): # R BG ICH PLAN: stroke neurology primary -q4 Neuro checks - SBP < 160 - D/C MRI/MRA - CTA when able pending resp status - PT/OT as appropriate - VTE ppx: SCDs on, sub q heparin - PT/OT Assessment & Plan (07/30/2023 7:48 AM EDT): # R BG ICH PLAN: stroke neurology primary - SBP < 160 - MRI/MRA- will need anesthesia consultation - PT/OT as appropriate Assessment & Plan (07/29/2023 12:07 PM EDT): # R BG ICH PLAN: stroke neurology primary - SBP < 160 - MRI/MRA- will need anesthesia consultation - PT/OT as appropriate Assessment & Plan (07/28/2023 2:22 AM EDT): # R BG ICH - not on blood thinner. - SBP < 160 - CTH in 6 hr and CTA - PT/OT as appropriate Dysphagia, [id number]/30/2023 Assessment & Plan (08/12/2023 11:12 AM EDT): 08/08: s/p PEG 08/10: TF changed from nutren 2.0 back to peptamen AF d/t intolerance to nutren( diarrhea, GI upset) Assessment & Plan (2023 3:07 PM EDT): 08/08: s/p PEG 08/10: TF changed from nutren 2.0 back to peptamen AF d/t intolerance to nutren( diarrhea, GI upset) Assessment & Plan (2023 7:49 AM EDT): 08/08: s/p PEG TF with RD aid Assessment & Plan (08/09/2023 8:57 AM EDT): 08/08: s/p PEG resuming TF today Assessment & Plan (08/08/2023 7:50 AM EDT): -Tolerating TF -Corp[place] in place - Gen surg consulted for PEG placement d/t BMI Assessment & Plan (08/07/2023 11:43 AM EDT): -Tolerating TF -Corp[place] in place - Gen surg consulted for PEG placement d/t BMI Assessment & Plan (08/06/2023 11:32 AM EDT): -Tolerating TF -Corp[place] in place - Gen surg consulted for PEG placement d/t BMI Assessment & Plan (08/05/2023 8:51 AM EDT): -Tolerating TF -Corp[place] in place -CTS consult Sunday morning for Trach/peg Assessment & Plan (08/04/2023 9:17 AM EDT): -Tolerating TF -Corp[place] in place -CTS consult Sunday morning for Trach/peg Assessment & Plan (08/03/2023 11:33 AM EDT): -Tolerating TF -Corp[place] in place -begin trach/peg conversation with family Assessment & Plan (08/02/2023 10:38 AM EDT): -Tolerating TF -Corp[place] in place -begin trach/peg conversation with family Assessment & Plan (08/01/2023 11:35 AM EDT): -Tolerating TF -Corp[place] in place -Speech following - 07/30 recs -NPO except limited ice chips Assessment & Plan (07/31/2023 10:45 AM EDT): -Tolerating TF -Corp[place] in place -Speech following - 102 recs -NPO except limited ice chips Assessment & Plan (07/30/2023 7:46 AM EDT): NPO deferring corpak until after full speech eval on 07/30 Assessment & Plan (07/29/2023 12:04 PM EDT): NPO deferring corpak until after full speech eval on 07/30 Type 2 diabetes mellitus without complication, without long-term current use of [id number]/09/2018 Assessment & Plan (08/27/2023 11:41 AM EDT): Assessment: - History of DMII, unclear if on any home mediations. - Blood sugars remain controlled with current regimen. Plan: -- Continue SSI3 with q6H accuchecks. -- Hypoglycemia protocol in place. Assessment & Plan (08/26/2023 12:08 AM EDT): Assessment: - History of DMII, unclear if on any home mediations. - Blood sugars remain controlled with current regimen. Plan: -- Continue SSI3 with q6H accuchecks. -- Hypoglycemia protocol in place. Assessment & Plan (08/25/2023 5:32 AM EDT): SSI3, accuchecks stable 130s to 170s Assessment & Plan (08/24/2023 12:05 PM EDT): SSI3, accuchecks stable 140-160s Assessment & Plan (08/23/2023 3:06 PM EDT): On SSI3, Insulin in TPN Assessment & Plan (08/22/2023 12:53 PM EDT): On SSI3, Insulin in TPN Assessment & Plan (08/21/2023 12:51 PM EDT): On SSI3, Insulin in TPN Assessment & Plan (08/20/2023 1:56 PM EDT): On SSI3, Insulin in TPN Assessment & Plan (08/18/2023 8:46 PM EDT): On SSI 3, Insulin in TPN Assessment & Plan (08/16/2023 3:39 PM EDT): On SSI 3, Insulin in TPN Assessment & Plan (08/15/2023 1:42 PM EDT): On SSI 3 Assessment & Plan (08/14/2023 1:03 PM EDT): On SSI 3 Assessment & Plan (08/13/2023 12:23 PM EDT): On SSI 3, may need insulin gtt once started on TPN Assessment & Plan (08/12/2023 11:17 PM EDT): On SSI, will likely need insulin gtt once started on TPN Assessment & Plan (08/12/2023 11:13 AM EDT): - SSIII -Accu checks Q6 Assessment & Plan (08/11/2023 7:35 AM EDT): - SSIII -Accu checks Q6 Assessment & Plan (2023 7:49 AM EDT): - SSIII -Accu checks Q6 Assessment & Plan (08/09/2023 8:59 AM EDT): - SSIII -Accu checks Q6 Assessment & Plan (08/08/2023 7:50 AM EDT): - SSIII -Accu checks Q6 Assessment & Plan (08/07/2023 11:43 AM EDT): - SSIII -Accu checks Q6 Assessment & Plan (08/06/2023 11:34 AM EDT): - SSIII -Accu checks Q6 Assessment & Plan (08/05/2023 8:51 AM EDT): - SSIII -Accu checks Q6 Assessment & Plan (08/04/2023 9:18 AM EDT): - SSIII -Accu checks Q6 Assessment & Plan (08/03/2023 11:33 AM EDT): - SSIII -Accu checks Q6 Assessment & Plan (08/02/2023 10:38 AM EDT): - SSIII -Accu checks Q6 Assessment & Plan (08/01/2023 11:35 AM EDT): - SSIII -Accu checks Q6 Assessment & Plan (07/31/2023 10:43 AM EDT): - SSIII -Accu checks Q6 Assessment & Plan (07/30/2023 7:47 AM EDT): - insulin as appropriate Assessment & Plan (07/29/2023 12:07 PM EDT): - insulin as appropriate Assessment & Plan (07/28/2023 2:25 AM EDT): - insulin as appropriate Chronic diastolic CHF (congestive heart failure)09/23/2018 Assessment & Plan (09/25/2018 4:33 PM EST): Assessment: Suspected due to prior history of volume overload with normal LV systolic function on echocardiograms. Prior echocardiograms very limited and unable to evaluate diastolic function. Currently, heart failure is compensated. Unclear if pulmonary edema on CXR as limited study given body habitus. Patient developing contraction alkalosis. PLAN: Continue Torsemide Monitor I&O Monitor and replete electrolytes Assessment & Plan (09/24/2018 5:06 PM EST): Assessment: Suspected due to prior history of volume overload with normal LV systolic function on echocardiograms. Prior echocardiograms very limited and unable to evaluate diastolic function. Currently, heart failure is compensated. Unclear if pulmonary edema on CXR as limited study given body habitus. Patient developing contraction alkalosis. PLAN: Continue Torsemide: deccrease from 20mg BID to 20mg qD Monitor I&O Monitor and replete electrolytes Assessment & Plan (09/23/2018 2:23 PM EST): Assessment: Suspected due to prior history of volume overload with normal LV systolic function on echocardiograms. Prior echocardiograms very limited and unable to evaluate diastolic function. Currently, heart failure is compensated. Unclear if pulmonary edema on CXR as limited study given body habitus. PLAN: Continue Torsemide: increase from 20mg daily to 20mg BID Monitor I&O Monitor and replete electrolytes Physical fgugiznc73/26/2018 Assessment & Plan (09/25/2018 4:33 PM EST): Assessment: Related to co-morbid illnesses and multiple hospitalizations. PLAN: PT/OT consulted Discharge to SNF: awaiting precert Assessment & Plan (09/24/2018 5:03 PM EST): Assessment: Related to co-morbid illnesses and multiple hospitalizations. PLAN: PT/OT consulted Discharge to SNF vs. Acute rehab Assessment & Plan (09/23/2018 1:02 AM EST): Assessment: Related to co-morbid illnesses and multiple hospitalizations. PLAN: Consult PT/OT Urinary [id number]/26/2018 Assessment & Plan (09/25/2018 4:34 PM EST): Assessment: Patient concerned for UTI this admission; also having low grade fevers. UA not concerning for infection. Urine culture grew 10,000 - <50,000 CFU/ml Enterococcus faecalis. PLAN: Continue to monitor Assessment & Plan (09/24/2018 5:04 PM EST): Assessment: Patient concerned for UTI this admission; also having low grade fevers. UA not concerning for infection. PLAN: F/u urine culture Assessment & Plan (09/23/2018 2:23 PM EST): Assessment: Patient concerned for UTI this admission; also having low grade fevers. PLAN: Check urinalysis and urine culture Elbow pain, right09/23/2018 Assessment & Plan (09/24/2018 5:05 PM EST): Assessment: Noted since fall at [facility]. No evident soft tissue injury but bony tenderness noted. X-ray negative for fracture or dislocation of elbow. Pain is improving. PLAN: Continue to monitor Assessment & Plan (09/23/2018 2:25 PM EST): Assessment: Noted since fall at [facility]. No evident soft tissue injury but bony tenderness noted. PLAN: Check X-ray of elbow Superficial thrombophlebitis of left upper sojinysxb53/26/2018 Assessment & Plan (09/24/2018 5:07 PM EST): Assessment: Related to recent IV in LUE. Patient concerned for DVT but duplex of LUE on 09/24/2018 negative for DVT but showed cephalic vein superficial thrombophlebitis. PLAN: Continue to monitor Assessment & Plan (09/23/2018 2:26 PM EST): Assessment: Related to recent IV in LUE. Patient concerned for DVT. PLAN: Duplex ultrasound of LUE Warm compress to affected area Respiratory [id number]/18/2018Circadian rhythm sleep fhjccwdo27/17/2018 Overview (10/08/2018): Overview: Last Assessment & Plan: Assessment: For past 3 years is awake during night time, goes to bed at 6am and uses CPAP throughout the day PLAN: - Will need follow up w/ sleep medicine upon discharge Assessment & Plan (09/14/2018 9:11 AM EST): Assessment: For past 3 years is awake during night time, goes to bed at 6am and uses CPAP throughout the day PLAN: - Will need follow up w/ sleep medicine upon discharge Acute exacerbation of chronic obstructive airways [id number]/03/2018 Overview (2023): Assessment & Plan (08/12/2023 11:12 AM EDT): See acute respiratory failure Assessment & Plan (08/11/2023 7:32 AM EDT): See acute respiratory failure Assessment & Plan (2023 7:47 AM EDT): See acute respiratory failure Assessment & Plan (08/09/2023 8:56 AM EDT): See acute respiratory failure Assessment & Plan (08/08/2023 7:49 AM EDT): See acute respiratory failure Assessment & Plan (08/07/2023 11:39 AM EDT): See acute respiratory failure Assessment & Plan (08/06/2023 11:30 AM EDT): See acute respiratory failure Assessment & Plan (08/05/2023 8:50 AM EDT): See acute respiratory failure Assessment & Plan (08/04/2023 9:17 AM EDT): See acute respiratory failure Assessment & Plan (08/03/2023 11:32 AM EDT): See acute respiratory failure Assessment & Plan (08/02/2023 10:35 AM EDT): See acute respiratory failure Assessment & Plan (09/24/2018 5:07 PM EST): Assessment: Patient continues with wheezing, dyspnea, and increased productive cough. CXR stable on09/23/2018 and demonstrates stable left-sided pleural effusion with left lower lobe atelectasis/consolidation and mild patchy right basilar atelectasis. Last PFTs in 2012 showed restrictive lung disease but patient former smoker and endorses diagnosis of COPD. PLAN: Continue Prednisone x 5 days Continue Mucinex Continue Albuterol and Pulmicort F/u with Pulmonary as scheduled Assessment & Plan (09/23/2018 2:22 PM EST): Assessment: Patient continues with wheezing, dyspnea, and increased productive cough. CXR stable on09/23/2018 and demonstrates stable left-sided pleural effusion with left lower lobe atelectasis/consolidation and mild patchy right basilar atelectasis. Last PFTs in 2012 showed restrictive lung disease but patient former smoker and endorses diagnosis of COPD. 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 Plan: -- Hold home Duloxetine -- Continue clonidine taper with daily and HS seroquel. Assessment & Plan (09/05/2023 9:40 AM EST): Asessment: - Home regimen: Duloxetine. Plan: -- Hold home Duloxetine -- Continue clonidine taper with daily and HS seroquel. Assessment & Plan (09/04/2023 10:38 AM EST): Asessment: home regimen: Duloxetine Plan: - Hold home Duloxetine - on clonidine taper Assessment & Plan (09/03/2023 1:15 PM EST): Asessment: home regimen: Duloxetine Plan: - Hold home Duloxetine Assessment & Plan (09/02/2023 9:41 AM EST): A: pt takes duloxetine at home P; holding bc can't put down corpak Assessment & Plan (09/01/2023 10:36 AM EDT): A: pt takes duloxetine at home P; resume Assessment & Plan (08/31/2023 5:30 AM EDT): A: pt takes duloxetine at home P: continue when able. Assessment & Plan (08/27/2023 11:41 AM EDT): Assessment: - Patient with inadequate sleep while in ICU. - Endorsing anxiety. - On clonidine taper following precedex gtt. Plan: -- Continue clonidine taper. Assessment & Plan (08/26/2023 12:06 AM EDT): Assessment: - Patient with inadequate sleep while in ICU. - Endorsing anxiety. - On clonidine taper following precedex gtt. Plan: -- Continue clonidine taper. Assessment & Plan (08/25/2023 5:32 AM EDT): On clonidine taper following precedex gtt Patient with inadequate sleep while in ICU. - Continue Melatonin 3 mg qnight Assessment & Plan (08/24/2023 12:06 PM EDT): On clonidine taper following precedex gtt Patient with inadequate sleep while in ICU. Will stop seroquel 08/24 and initiate melatonin nightly. Assessment & Plan (08/23/2023 3:06 PM EDT): Clonidine scheduled given precedex gtt discontinued 08/19 - will continue 08/21 Continue seroquel 25 mg BID Assessment & Plan (08/22/2023 12:54 PM EDT): Clonidine scheduled given precedex gtt discontinued 08/19 - will continue 08/21 Continue seroquel 25 mg BID Assessment & Plan (08/21/2023 12:54 PM EDT): Clonidine scheduled given precedex gtt discontinued 08/19 - will continue 08/21 Continue seroquel 25 mg BID Assessment & Plan (08/20/2023 1:58 PM EDT): Clonidine scheduled given precedex gtt discontinued 08/19 - will continue 08/20 Discontinue hydroxyzine Continue seroquel 25 mg every day + PRN Assessment & Plan (08/18/2023 8:39 PM EDT): On low dose precedex Required ativian, versed and seroquel while in NICU Clonidine scheduled to help taper down precedex Assessment & Plan (08/16/2023 3:41 PM EDT): On low dose precedex Required ativian, versed and seroquel while in NICU Clonidine scheduled to help taper down precedex Assessment & Plan (08/14/2023 1:02 PM EDT): On low dose precedex Will consider adding PRNs for anxiety if needed. Required ativian, versed and seroquel while in NICU Assessment & Plan (08/13/2023 12:20 PM EDT): Currently sedated on propofol given recent surgery. Stopping prop. Will consider adding PRNs for anxiety if needed. Required while in NICU Assessment & Plan (08/12/2023 11:15 PM EDT): Currently sedated on propofol given recent surgery Assessment & Plan (08/12/2023 11:12 AM EDT): On Cymbalta at home - unable to crush PLAN -Continue Celexa 10mg/d -Seroquel 100 mg TID - Scheduled atarax -can consider adding Gabapentin for further adjunct once Celexa and Buspar optimized - had swelling reaction in past- family unsure of exact reaction/severity -f/u with Psychology outpatient Assessment & Plan (08/11/2023 7:32 AM EDT): On Cymbalta at home - unable to crush PLAN -Continue Celexa 10mg/d -Seroquel 100 mg TID -can consider adding Gabapentin for further adjunct once Celexa and Buspar optimized - had swelling reaction in past- family unsure of exact reaction/severity -f/u with Psychology outpatient Assessment & Plan (2023 7:48 AM EDT): On Cymbalta at home - unable to crush PLAN -Continue Celexa 10mg/d -Seroquel 100 mg TID -can consider adding Gabapentin for further adjunct once Celexa and Buspar optimized - had swelling reaction in past- family unsure of exact reaction/severity -f/u with Psychology outpatient Assessment & Plan (08/09/2023 8:56 AM EDT): On Cymbalta at home - unable to crush PLAN -Continue Celexa 10mg/d -continue Buspar 5mg TID -Hydroxyzine 25mg QID -Seroquel 100 mg TID -can consider adding Gabapentin for further adjunct once Celexa and Buspar optimized - had swelling reaction in past- family unsure of exact reaction/severity -f/u with Psychology outpatient Assessment & Plan (08/08/2023 7:52 AM EDT): On Cymbalta at home - unable to crush -Continue Celexa 10mg/d -continue Buspar 5mg TID -Hydroxyzine 25mg QID -Seroquel 100 mg TID -can consider adding Gabapentin for further adjunct once Celexa and Buspar optimized - had swelling reaction in past- family unsure of exact reaction/severity -f/u with Psychology outpatient Assessment & Plan (08/07/2023 11:45 AM EDT): On Cymbalta at home - unable to crush -Continue Celexa 10mg/d -continue Buspar 5mg TID -Hydroxyzine 25mg QID - can liberalize to PRN once seroquel weaned off -Seroquel 100 mg TID -can consider adding Gabapentin for further adjunct once Celexa and Buspar optimized - had swelling reaction in past- family unsure of exact reaction/severity -f/u with Psychology outpatient Assessment & Plan (08/06/2023 11:31 AM EDT): On Cymbalta at home - unable to crush 7: Celexa and Buspar started, Hydroxyzine changed to QID Weaned off precedex infusion this morning -Continue Celexa 10mg/d -continue Buspar 5mg TID -Hydroxyzine 25mg QID - can liberalize to PRN once seroquel weaned off -Wean seroquel to 25mg TID - plan to further wean with Celexa and Buspar optimization -can consider adding Gabapentin for further adjunct once Celexa and Buspar optimized - had swelling reaction in past- family unsure of exact reaction/severity - Start PRN midazolam for sedation/comfort with ventilator -f/u with Psychology outpatient Assessment & Plan (08/05/2023 8:53 AM EDT): On Cymbalta at home - unable to crush 10/7: Celexa and Buspar started, Hydroxyzine changed to QID Weaned off precedex infusion this morning -Continue Celexa 10mg/d -continue Buspar 5mg TID -Hydroxyzine 25mg QID - can liberalize to PRN once seroquel weaned off -Wean seroquel to 25mg TID - plan to further wean with Celexa and Buspar optimization -can consider adding Gabapentin for further adjunct once Celexa and Buspar optimized - had swelling reaction in past- family unsure of exact reaction/severity -repeat EKG today to assess Qtc -f/u with Psychology outpatient Assessment & Plan (08/04/2023 9:23 AM EDT): On Cymbalta at home Requiring precedex infusion for ventilator synchrony and anxiety control - currently on 1.5mcg/kg/h -Start Celexa 10mg/d -Start Buspar 5mg TID -Schedule Hydroxyzine 25mg QID - can liberalize to PRN once precedex weaned off -Wean seroquel to 50mg TID - plan to further wean with Celexa and Buspar optimization -can consider adding Gabapentin for further adjunct once Celexa and Buspar optimized - had swelling reaction in past - will clarify exact reaction with family -Wean Precedex infusion as able -f/u with Psychology outpatient Assessment & Plan (08/02/2023 10:38 AM EDT): -precedex infusion for ventilator synchrony -PRN atarax -Seroquel 75 mg TID -Psychology consult Assessment & Plan (08/01/2023 11:35 AM EDT): -start Clonidine 0.1mg TID -Wean precedex drip as able -PRN atarax -Seroquel 75 mg TID -Psychology consult Assessment & Plan (07/31/2023 10:50 AM EDT): -Wean precedex drip -Start PRN atarax -Seroquel 50 mg TID - consider increasing this afternoon Assessment & Plan (09/23/2018 12:49 AM EST): Assessment: Stable. PLAN: Continue Seroquel and Cymbalta Assessment & Plan (09/19/2018 7:46 AM EST): Assessment: h/o anxiety and depression Plan: - continue seroquel and duloxetine Assessment & Plan (09/14/2018 11:22 AM EST): Assessment: Has been severely depressed since father committed suicide 8 years ago. Has not seeked help, but wishes to per mother. PLAN: - Cymbalta 60mg BID - dose increase d/t uncontrolled anxiety per pt - Psych consult to assist w/ Anxiety/depression that is inhibiting compliance with BiPAP - Seroquel 75mg qhs with 50mg PRN - atarax PRN Assessment & Plan (09/13/2018 11:02 AM EST): Assessment: Has been severely depressed since father committed suicide 8 years ago. Has not seeked help, but wishes to per mother. PLAN: - Cymbalta 60mg BID - dose increase d/t uncontrolled anxiety per pt - Psych consult to assist w/ Anxiety/depression that is inhibiting compliance with BiPAP - Seroquel 75mg qhs with 50mg PRN - atarax PRN Assessment & Plan (09/12/2018 1:46 PM EST): Assessment: Has been severely depressed since father committed suicide 8 years ago. Has not seeked help, but wishes to per mother. PLAN: - Cymbalta 30/60 - dose increase (09/07) d/t uncontrolled anxiety per pt - Psych consult to assist w/ Anxiety/depression that is inhibiting compliance with BiPAP - Seroquel 50mg TID PRN Assessment & Plan (09/11/2018 1:12 PM EST): Assessment: Has been severely depressed since father committed suicide 8 years ago. Has not seeked help, but wishes to per mother. PLAN: - Cymbalta 30/60 - dose increase (09/07) d/t uncontrolled anxiety per pt - Psych consult to assist w/ Anxiety/depression that is inhibiting compliance with BiPAP - Increase seroquel 50mg TID Assessment & Plan (09/10/2018 11:48 AM EST): Assessment: Has been severely depressed since father committed suicide 8 years ago. Has not seeked help, but wishes to per mother. PLAN: - Cymbalta 30/60 - dose increase (09/07) d/t uncontrolled anxiety per pt - Psych consult to assist w/ Anxiety/depression that is inhibiting compliance with BiPAP - Increase seroquel 50mg TID Assessment & Plan (09/09/2018 11:53 AM EST): Assessment: Has been severely depressed since father committed suicide 8 years ago. Has not seeked help, but wishes to per mother. PLAN: - Cymbalta 30/60 - dose increase (09/07) d/t uncontrolled anxiety per pt - Psych consult to assist w/ Anxiety/depression that is inhibiting compliance with BiPAP Assessment & Plan (09/08/2018 8:01 AM EST): Assessment: Has been severely depressed since father committed suicide 8 years ago. Has not seeked help, but wishes to per mother. PLAN: - Cymbalta 30/60 - dose increase (09/07) d/t uncontrolled anxiety per pt - Psych consult to assist w/ Anxiety/depression that is inhibiting compliance with BiPAP Assessment & Plan (09/07/2018 9:46 AM EST): Assessment: Has been severely depressed since father committed suicide 8 years ago. Has not seeked help, but wishes to per mother. PLAN: - Cymbalta 30mg BID Assessment & Plan (09/06/2018 10:09 AM EST): Assessment: Has been severely depressed since father committed suicide 8 years ago. Has not seeked help, but wishes to per mother. PLAN: - Consider psych consult once extubated - Restarted cymbalta 30mg BID Assessment & Plan (09/05/2018 8:20 AM EST): Assessment: Has been severely depressed since father committed suicide 8 years ago. Has not seeked help, but wishes to per mother. PLAN: - Consider psych consult once extubated - Hold cymbalta (was not taking it) Assessment & Plan (09/04/2018 2:49 PM EST): Assessment: Has been severely depressed since father committed suicide 8 years ago. Has not seeked help, but wishes to per mother. PLAN: - Consider psych consult once extubated - Hold cymbalta (was not taking it) Assessment & Plan (09/03/2018 3:46 PM EST): Assessment: Has been severely depressed since father committed suicide 8 years ago. Has not seeked help, but wishes to per mother. PLAN: - Consider psych consult once extubated - Hold cymbalta (was not taking it) Acute on chronic respiratory failure with hypoxia and [id number]/10/2018 Assessment & Plan (09/06/2023 12:42 PM EST): Assessment: - Chronic trach. - Currently trach to vent, in past has tolerated TC with speaking valve. - Uses duonebs q4 hr at home. - Had large left loculated pleural effusion s/p chest tube placement on 09/01. - Chest tube removed by IR 09/05/23 - Cuff leak noted 09/04 with high cuff pressures - Trach team consulted, maintains adequate oxygenation and ventilation with occasional positional air leak. Per trach team, small air-leak is ok as long as ventilation/oxygenation adequate. Plan: -- Trach team consulted -- Continue mechanical vent; wean as tolerated. -- Continue PRN duonebs. -- CXR as clinically indicated. -- OOB with PT/OT, aggressive pulmonary hygiene. Assessment & Plan (09/05/2023 11:41 AM EST): Assessment: - Chronic trach. - Currently trach to vent, in past has tolerated TC with speaking valve. - Uses duonebs q4 hr at home. - Had large left loculated pleural effusion s/p chest tube placement on 09/01. - Chest tube removed by IR this morning. - Cuff leak noted 09/04 with high cuff pressures. Plan: -- Consult trach team for further guidance regarding cuff leak with high cuff pressures. -- Post chest tube removal CXR. -- Continue mechanical vent; wean as tolerated. -- Continue PRN duonebs. -- CXR as clinically indicated. -- OOB with PT/OT, aggressive pulmonary hygiene. Assessment & Plan (09/04/2023 10:37 AM EST): Assessment: Pt with trach collar, tolerating the ventilator currently. Not sedated. Uses duonebs q4hr at home. On vent around the clock at outside facility and occasionally used speaking valve Had large left loculated pleural effusion s/p chest tube placement on 09/01, put out 1L initially, now dropping off Plan: - continue mechanical vent; wean as tolerated - consult trach rounding team tomorrow (available Wed) for cuff leak - Daily CXR - CT to water seal -- consider clamping - OOB with PT/OT, aggressive pulmonary hygiene - Consider RVP if decline in respiratory status Assessment & Plan (09/03/2023 1:32 PM EST): Assessment: Pt with trach collar, tolerating the ventilator currently. Not sedated. Uses duonebs q4hr at home. On vent around the clock at outside facility and occasionally used speaking valve Has large left loculated pleural effusion s/p chest tube placement on 09/01, put out 1L initially, now dropping off Plan: - Trached to vent; TC trials as tolerated - Daily CXR - CT to water seal - OOB with PT/OT, aggressive pulmonary hygiene - Consider RVP if decline in respiratory status Assessment & Plan (09/02/2023 9:40 AM EST): A: Pt with trach collar, tolerating the ventilator currently. Not sedated. Uses duonebs q4 hr at home. On vent around the clock at outside facility and occasionally used speaking valve Has large left loculated pleural effusion s/p chest tube placement on 09/01, put out 1L initially, now dropping off P: remains on vent, wean as able CXR today CT to water seal OOB with PT/OT, cough and DB Assessment & Plan (09/01/2023 10:41 AM EDT): A: Pt with trach collar, tolerating the ventilator currently. Not sedated. Uses duonebs q4 hr at home. On vent around the clock at outside facility and occasionally used speaking valve Has large left loculated pleural effusion P: remains on vent, wean as able Assessment & Plan (08/31/2023 4:55 AM EDT): A: Pt with trach collar, tolerating the ventilator currently. Not sedated. Uses duonebs q4 hr at home. P: continue to monitor. Assessment & Plan (08/27/2023 11:39 AM EDT): Assessment: - Trach dependent prior to OR. - Remains on vent, PS 35% 8 PEEP. - 08/25 COVID negative. - Being treated for MRSA pneumonia. - Most recent CXR 08/23 with left pleural effusion, started on scheduled lasix. Plan: -- Continue lasix. -- Continue vent weaning as tolerated by patient. -- Continue MRSA pneumonia treatment per ID recommendations; Continue vancomycin while inpatient and switch to linezolid on discharge until 09/05 Assessment & Plan (08/26/2023 12:01 AM EDT): Assessment: - Trach dependent prior to OR. - Remains on vent, PS 35% 8 PEEP. - 08/25 COVID negative. - Being treated for MRSA pneumonia. - Most recent CXR 08/23 with left pleural effusion, started on scheduled lasix. Plan: -- Continue lasix. -- Continue vent weaning as tolerated by patient. -- Continue MRSA pneumonia treatment per ID recommendations; Continue vancomycin while inpatient and switch to linezolid on discharge. Assessment & Plan (08/25/2023 5:31 AM EDT): Has been trach dependent prior to OR Presented to SICU with high FIO2 post abdominal surgery, wean as able 08/13: PEEP ar 14 and FiO2 at 60% on PC 08/14: FiO2 down to 50%. ABG improved 08/16: FiO2 45% on PS, 12 PEEP 08/19: FiO2 40% on PS, 12 PEEP 08/20: FiO2 50% on PS, 12 PEEP 08/21: FiO2 35% on PS, 12 PEEP 08/22: FiO2 40% on AC, 10 PEEP 08/23: FiO2 40% on AC, 10 PEEP 08/24: FiO2 40% on PS, 8 PEEP 08/25: FiO2 35% on PS, 8 PEEP - Patient with previous diagnosis of COPD/asthma. Increasing requirements 08/20 overnight concerning for infectious process vs hypervolemia vs multifactorial etiology. - Infectious work-up pursued as below - Continue lasix 40 mg IV TID. BMP, Mg q12h. Assessment & Plan (08/24/2023 12:01 PM EDT): Has been trach dependent prior to OR Presented to SICU with high FIO2 post abdominal surgery, wean as able 16: PEEP ar 14 and FiO2 at 60% on PC 08/14: FiO2 down to 50%. ABG improved 08/16: FiO2 45% on PS, 12 PEEP 10/22: FiO2 40% on PS, 12 PEEP 10/23: FiO2 50% on PS, 12 PEEP 10/24: FiO2 35% on PS, 12 PEEP 10/25: FiO2 40% on AC, 10 PEEP 10/: FiO2 40% on AC, 10 PEEP /: FiO2 40% on PS, 8 PEEP - Patient with previous diagnosis of COPD/asthma. Increasing requirements 08/20 overnight concerning for infectious process vs hypervolemia vs multifactorial etiology. - Infectious work-up pursued as below - Discontinue lasix gtt, start lasix 40 mg IV TID. BMP, Mg q12h. Assessment & Plan (08/23/2023 2:55 PM EDT): Has been trach dependent prior to OR Presented to SICU with high FIO2 post abdominal surgery, wean as able 08/13: PEEP ar 14 and FiO2 at 60% on PC 08/14: FiO2 down to 50%. ABG improved 08/16: FiO2 45% on PS, 12 PEEP 10/22: FiO2 40% on PS, 12 PEEP 10/23: FiO2 50% on PS, 12 PEEP 10/24: FiO2 35% on PS, 12 PEEP 10/25: FiO2 40% on PS, 10 PEEP 10/: FiO2 40% on PS, 10 PEEP - Patient with previous diagnosis of COPD/asthma. Increasing requirements 08/20 overnight concerning for infectious process vs hypervolemia vs multifactorial etiology. - Infectious work-up pursued as below - Continue Lasix gtt (5mg/hr). BMP, Mg q12h. Assessment & Plan (08/22/2023 12:45 PM EDT): Has been trach dependent prior to OR Presented to SICU with high FIO2 post abdominal surgery, wean as able 08/13: PEEP ar 14 and FiO2 at 60% on PC 08/14: FiO2 down to 50%. ABG improved 08/16: FiO2 45% on PS, 12 PEEP 10/22: FiO2 40% on PS, 12 PEEP 10/23: FiO2 50% on PS, 12 PEEP 10/24: FiO2 35% on PS, 12 PEEP 10/25: FiO2 40% on PS, 10 PEEP - Patient with previous diagnosis of COPD/asthma. Increasing requirements 08/20 overnight concerning for infectious process vs hypervolemia vs multifactorial etiology. - Infectious work-up pursued as below - Continue Lasix gtt (5mg/hr). Will replete losses with D5W 25cc/hr and tube feed flushes 50cc/hr. BMP, Mg q12h. Assessment & Plan (08/21/2023 12:48 PM EDT): Has been trach dependent prior to OR Presented to SICU with high FIO2 post abdominal surgery, wean as able 08/13: PEEP ar 14 and FiO2 at 60% on PC 08/14: FiO2 down to 50%. ABG improved 08/16: FiO2 45% on PS, 12 PEEP 10/22: FiO2 40% on PS, 12 PEEP 10/23: FiO2 50% on PS, 12 PEEP 10/24: FiO2 35% on PS, 12 PEEP - Patient with previous diagnosis of COPD/asthma. Increasing requirements 08/20 overnight concerning for infectious process vs hypervolemia vs multifactorial etiology. - Infectious work-up pursued as below - Continue Lasix gtt (5mg/hr). Will replete losses with D5W 25cc/hr and tube feed flushes 50cc/hr. BMP, Mg q12h. Assessment & Plan (08/20/2023 1:52 PM EDT): Has been trach dependent prior to OR Presented to SICU with high FIO2 post abdominal surgery, wean as able 08/13: PEEP ar 14 and FiO2 at 60% on PC 08/14: FiO2 down to 50%. ABG improved 08/16: FiO2 45% on PS, 12 PEEP 10/22: FiO2 40% on PS, 12 PEEP 10/23: FiO2 50% on PS, 12 PEEP - Patient with previous diagnosis of COPD/asthma. Increasing requirements 08/20 overnight concerning for infectious process vs hypervolemia vs multifactorial etiology. - Infectious work-up pursued as below - Diuresis with 40 mg IV lasix then lasix gtt (5mg/hr) thereafter. Previous diuresis stopped on 08/18 given hypernatremia. Will plan to replete losses with D5W 75cc/hr and tube feed flushes 50cc/hr. BMP q12h. Assessment & Plan (08/18/2023 8:45 PM EDT): Has been trach dependent prior to OR Presented to SICU with high FIO2 post abdominal surgery, wean as able 08/13: PEEP ar 14 and FiO2 at 60% on PC 08/14: FiO2 down to 50%. ABG improved 08/16: FiO2 45% on PS, 12 PEEP 08/19: FiO2 40% on PS, 12 PEEP Assessment & Plan (08/16/2023 3:36 PM EDT): Has been trach dependent prior to OR Presented to SICU with high FIO2 post abdominal surgery, wean as able 08/13: PEEP ar 14 and FiO2 at 60% on PC 08/14: FiO2 down to 50%. ABG improved 08/16: FiO2 45% on PS, 12 PEEP Assessment & Plan (08/15/2023 1:41 PM EDT): Has been trach dependent prior to OR Now on high FIO2 post abdominal surgery, wean as able 10/16: PEEP ar 14 and FiO2 at 60% on PC 17: FiO2 down to 50%. ABG improved 10: FiO2 40% on PS Assessment & Plan (08/14/2023 1:02 PM EDT): Has been trach dependent prior to OR Now on high FIO2 post abdominal surgery, wean as able 10/16: PEEP ar 14 and FiO2 at 60% on PC 10/17: FiO2 down to 50%. ABG improved Assessment & Plan (08/13/2023 12:19 PM EDT): Has been trach dependent prior to OR Now on high FIO2 post abdominal surgery, wean as able 1016: PEEP ar 14 and FiO2 at 60% on PC Assessment & Plan (08/12/2023 11:14 PM EDT): Has been trach dependent prior to OR Now on high FIO2 post abdominal surgery, wean as able Assessment & Plan (08/12/2023 11:12 AM EDT): Intubated 10/4 following respiratory decompensation and PEA arrest, required 2DART assistance Tracheostomy 10/9, [place] TTS 8.0, 6 mL water in cuff placed by thoracic surgery -continue mechanical ventilation, wean as able -Peridex/protonix -BPH/Hyperinflation Assessment & Plan (08/11/2023 7:32 AM EDT): Intubated 10/4 following respiratory decompensation and PEA arrest, required 2DART assistance Tracheostomy 10/9, [place] TTS 8.0, 6 mL water in cuff placed by thoracic surgery -continue mechanical ventilation, wean as able -cont gentle diuresis -Peridex/protonix -BPH/Hyperinflation Assessment & Plan (2023 7:51 AM EDT): Intubated 10/4 following respiratory decompensation and PEA arrest, required 2DART assistance Tracheostomy 10/9, [place] TTS 8.0, 6 mL water in cuff placed by thoracic surgery -continue mechanical ventilation, wean as able -cont gentle diuresis -Peridex/protonix -BPH/Hyperinflation Assessment & Plan (08/09/2023 8:55 AM EDT): Intubated 10/4 following respiratory decompensation and PEA arrest, required 2DART assistance Tracheostomy 10/9, [place] TTS 8.0, 6 mL water in cuff placed by thoracic surgery -continue mechanical ventilation, wean to trach collar as tolerates -Peridex/protonix -BPH/Hyperinflation Assessment & Plan (08/08/2023 7:50 AM EDT): Intubated 10/4 following respiratory decompensation and PEA arrest, required 2DART assistance Tracheostomy 10/9, [place] TTS 8.0, 6 mL water in cuff placed by thoracic surgery -continue mechanical ventilation, wean to trach collar as tolerates -Peridex/protonix -BPH/Hyperinflation Assessment & Plan (08/07/2023 11:43 AM EDT): Intubated 10/4 following respiratory decompensation and PEA arrest, required 2DART assistance Tracheostomy 08/06, [place] TTS 8.0, 6 mL water in cuff placed by thoracic surgery -continue mechanical ventilation, wean to trach collar as agitation/anxiety improves -Peridex/protonix -BPH/Hyperinflation -grossly fluid overloaded, 20 mg lasix today Assessment & Plan (08/06/2023 11:31 AM EDT): Intubated 10/4 following respiratory decompensation and PEA arrest, required 2DART assistance -continue mechanical ventilation, wean as tolerated -Peridex/protonix -BPH/Hyperinflation - Thoracic surgery consulted for trach placement->OR today -grossly fluid overloaded, continue diuresis as tolerated today Assessment & Plan (08/05/2023 8:50 AM EDT): Intubated 10/4 following respiratory decompensation and PEA arrest, required 2DART assistance -continue mechanical ventilation, wean as tolerated -Peridex/protonix -BPH/Hyperinflation -Family in agreement with Trach/peg, will consult Thoracic Sunday, NPO after midnight on Sunday -grossly fluid overloaded, continue diuresis as tolerated today Assessment & Plan (08/04/2023 9:22 AM EDT): Intubated 10/4 following respiratory decompensation and PEA arrest, required 2DART assistance -continue mechanical ventilation, wean as tolerated -Peridex/protonix -BPH/Hyperinflation -Family in agreement with Trach/peg, will consult Thoracic Sunday, NPO after midnight on Sunday morning -grossly fluid overloaded, 20mg IV lasix now and assess for response Assessment & Plan (08/03/2023 11:32 AM EDT): Intubated 10/4 following respiratory decompensation and PEA arrest, required 2DART assistance -continue mechanical ventilation, wean as tolerated -Peridex/protonix -BPH/Hyperinflation -Begin Trach/peg conversations with family given severe CELESTINE and COPD prior to intubation Assessment & Plan (08/02/2023 10:37 AM EDT): Intubated 08/01 following respiratory decompensation and PEA arrest, required 2DART assistance -continue mechanical ventilation, wean as tolerated -Peridex/protonix -BPH/Hyperinflation -Begin Trach/peg conversations with family given severe CELESTINE and COPD prior to intubation Assessment & Plan (09/23/2018 12:45 AM EST): Assessment: Presented with acute hypercarbia (pCO2 in [...] study as outpatient F/u in [facility] Assessment & Plan (09/19/2018 10:42 AM EST): Assessment: non compliance with BiPAP causing hypercarbia and hypoxia ABGs c/w acute on chronic resp acidosis. Plan: - BiPAP when sleeping/with naps - continue albuterol and pulmicort - BPH - continue torsemide 20 mg daily - needs to establish with Geology Instructor, likely also needs PSG in house Assessment & Plan (09/14/2018 11:23 AM EST): Assessment: unclear etiology - pneumonia/infectious vs volume [...] s/p Diamox 250 mg daily x3 (09/07-09/09) Assessment & Plan (09/13/2018 11:01 AM EST): Assessment: unclear etiology - pneumonia/infectious vs volume overload; component of OHS/CELESTINE - Lesslikely PE d/t CT chest and DVT scan (-) Completed course of empiric antibiotics with Levaquin and Ceftriaxone Echo bubble study neg for shunt - now back on home O2 requirements PLAN: - Continue weaning O2 requirements - BiPAP HS. - Diuresis - torsemide 20mg TID. - s/p Diamox 250 mg daily x3 (09/07-09/09) Assessment & Plan (09/12/2018 8:18 AM EST): Assessment: unclear etiology - pneumonia/infectious vs volume overload; component of OHS/CELESTINE - Lesslikely PE d/t CT chest and DVT scan (-) Completed course of empiric antibiotics with Levaquin and Ceftriaxone Echo bubble study neg for shunt PLAN: - Continue weaning O2 requirements - BiPAP HS. - Diuresis - lasix 40mg q8h - monitor renal fxn and replete K PRN. - s/p Diamox 250 mg daily x3 (09/07-09/09) Assessment & Plan (09/11/2018 1:02 PM EST): Assessment: unclear etiology - pneumonia/infectious vs volume overload; component of OHS/CELESTINE - Lesslikely PE d/t CT chest and DVT scan (-) Completed course of empiric antibiotics with Levaquin and Ceftriaxone Echo bubble study neg for shunt PLAN: - Continue weaning O2 requirements - BiPAP HS. - Diuresis - lasix 40mg q8h - monitor renal fxn and replete K PRN. - s/p Diamox 250 mg daily x3 (09/07-09/09) Assessment & Plan (09/10/2018 11:48 AM EST): Assessment: unclear etiology - pneumonia/infectious vs volume overload; component of OHS/CELESTINE - Lesslikely PE d/t CT chest and DVT scan (-) Completed course of empiric antibiotics with Levaquin and Ceftriaxone Echo bubble study neg for shunt PLAN: - Continue weaning O2 requirements - BiPAP HS. - Diuresis - lasix 40mg q8h - monitor renal fxn and replete K PRN. - s/p Diamox 250 mg daily x3 (09/07-09/09) - F/u Infectious workup - negative to day. Assessment & Plan (09/09/2018 11:52 AM EST): Assessment: unclear etiology - pneumonia/infectious vs volume overload; component of OHS/CELESTINE - Lesslikely PE d/t CT chest and DVT scan (-) Completed course of empiric antibiotics with Levaquin and Ceftriaxone PLAN: - Continue weaning O2 requirements - BiPAP HS. - Diuresis - lasix 40mg q8h - monitor renal fxn and replete K PRN. - Diamox 250 mg daily x3 (09/07-09/09) - F/u Infectious workup - negative to day. - Echo with bubble study Assessment & Plan (09/08/2018 7:59 AM EST): Assessment: unclear etiology - pneumonia/infectious vs volume overload; component of OHS/CELESTINE - Lesslikely PE d/t CT chest and DVT scan (-) PLAN: - Continue weaning O2 requirements - BiPAP HS. - Diuresis - lasix 40mg q8h - monitor renal fxn and replete K PRN. - Diamox 250 mg daily x3 (09/07-09/09) - F/u Infectious workup - negative to day. - Empiric antibiotics - levaquin (09/02 -09/07) and ceftriaxone (09/04-*) sputum cultures (09/04) NGTD. - Plan for Bubble study on Sunday if Hypoxemia persists despite diuresis Assessment & Plan (09/07/2018 9:45 AM EST): Assessment: unclear etiology - pneumonia/infectious vs volume overload; component of OHS/CELESTINE - Lesslikely PE d/t CT chest and DVT scan (-) PLAN: - Continue weaning O2 requirements - BiPAP HS. - Diuresis - lasix 40mg q8h - monitor renal fxn and replete K PRN. - F/u Infectious workup - mycoplasma, histo & RV panel negative. - Empiric antibiotics - levaquin (09/03-*) and ceftriaxone (09/04-*) sputum cultures (09/04) NGTD. Assessment & Plan (09/06/2018 10:08 AM EST): Assessment: unclear etiology - pneumonia/infectious vs volume overload; component of OHS/CELESTINE - Lesslikely PE d/t CT chest and DVT scan (-) PLAN: - Continue weaning O2 requirements - BiPAP HS. - Diuresis - lasix 40mg q8h - monitor renal fxn and replete K PRN. - Infectious workup - mycoplasma, histo pending - RV panel negative. - Empiric antibiotics - levaquin (09/03-*) and ceftriaxone (09/04-*) pending sputum cultures. - Continue senna-S + miralax - Advance diet as tolerated. Assessment & Plan (09/05/2018 1:47 PM EST): Assessment: unclear etiology - pneumonia/infectious vs volume overload; component of OHS/CELESTINE - Lesslikely PE d/t CT chest and DVT scan (-) PLAN: - Spontaneous awakening trials and SBT today. Transition to BiPAP as tolerated. - Monitor ABGs PRN - Diuresis - lasix 40mg q8h - monitor renal fxn and replete K PRN. - Infectious workup - mycoplasma, histo pending - RV panel negative. - Empiric antibiotics - levaquin (09/03-*) and ceftriaxone (09/04-*) pending sputum cultures. - Continue senna - consider changing to miralax if no BM. Assessment & Plan (09/04/2018 2:48 PM EST): Assessment: unclear etiology - pneumonia/infectious vs volume overload; component of OHS/CELESTINE - Lesslikely PE d/t CT chest and DVT scan (-) PLAN: - Continue mechanical ventilation - Arterial line and monitor ABGs - Diuresis - lasix 40mg q8h - monitor renal fxn and replete K PRN. - Infectious workup - RV panel, mycoplasma, histo pending - RSV and influenza negative. - Empiric antibiotics - levaquin (09/03-*) Assessment & Plan (09/03/2018 3:44 PM EST): Assessment: unclear etiology - PE vs pneumonia/infectious vs volume overload; component of OHS/CELESTINE PLAN: - Continue mechanical ventilation - Arterial line and monitor ABGs - CTPE - DVT scan - Consider heparin gtt pending studies - check CT brain - Echo - Diuresis - lasix 40mg bid - Infectious workup - RV panel, mycoplasma, histo - Empiric antibiotics - levaquin (09/03-*) Lumbago with jdbkcska49/24/2016 Overview (10/08/2018): Overview: Last Assessment & Plan: . Assessment & Plan (09/13/2018 8:04 AM EST): . Assessment & Plan (09/12/2018 8:18 AM EST): . Assessment & Plan (09/11/2018 1:02 PM EST): . Assessment & Plan (09/10/2018 11:48 AM EST): . Assessment & Plan (09/09/2018 11:52 AM EST): . Assessment & Plan (09/08/2018 8:00 AM EST): . Assessment & Plan (09/07/2018 9:45 AM EST): . Assessment & Plan (09/06/2018 10:09 AM EST): Assessment & Plan (09/04/2018 2:49 PM EST): PLAN: - Fentanyl gtt on for sedation Assessment & Plan (09/03/2018 3:44 PM EST): PLAN: - Fentanyl gtt on for sedation Urinary onpyetl9201/20/2016 Assessment & Plan (08/31/2023 11:58 AM EDT): A: pt with burning with urination. Takes Topamax at home, has had a chronic aleln P: will replace allen, send UA, resume home meds when able. Assessment & Plan (08/31/2023 4:57 AM EDT): A: pt with burning with urination. Takes Topamax at home, has had a chronic allen P: will replace allen, send UA, resume home meds when able. Feeling of incomplete bladder brgnsfon87/24/2016Intractable jxazumzo13/24/2016 Iptejgzpbtkjok41/24/3705Mcplgkzjqvfjoamarc63/24/2016 Overview (10/08/2018): Overview: Last Assessment & Plan: PLAN: - Hold testosterone shots BMI 50.0-59.9, adult01/20/2016 Assessment & Plan (09/24/2018 5:06 PM EST): Assessment: Severe obesity which is leading to multiple co-morbid illnesses. PLAN: Accounts Receivable Clerk on lifestyle changes Assessment & Plan (09/23/2018 12:50 AM EST): Assessment: Severe obesity which is leading to multiple co-morbid illnesses. PLAN: Accounts Receivable Clerk on lifestyle changes CELESTINE (obstructive sleep apnea)01/20/2016 Assessment & Plan (08/12/2023 11:13 AM EDT): See Acute on chronic respiratory failure Assessment & Plan (08/11/2023 7:35 AM EDT): See Acute on chronic respiratory failure Assessment & Plan (08/09/2023 8:56 AM EDT): See Acute on chronic respiratory failure Assessment & Plan (08/08/2023 7:50 AM EDT): See Acute on chronic respiratory failure Assessment & Plan (08/07/2023 11:43 AM EDT): See Acute on chronic respiratory failure Assessment & Plan (08/05/2023 8:50 AM EDT): See Acute on chronic respiratory failure Assessment & Plan (08/04/2023 9:17 AM EDT): See Acute on chronic respiratory failure Assessment & Plan (08/03/2023 11:32 AM EDT): See Acute on chronic respiratory failure Assessment & Plan (08/02/2023 10:37 AM EDT): See Acute on chronic respiratory failure Assessment & Plan (08/01/2023 11:34 AM EDT): - Home CPAP - CPAP at night/while sleeping - High flow NC during the day as tolerated Assessment & Plan (07/31/2023 10:45 AM EDT): - Home CPAP - CPAP at night/while sleeping -F/u CXR Assessment & Plan (07/30/2023 7:46 AM EDT): - home CPAP - CPAP at night Assessment & Plan (07/29/2023 12:03 PM EDT): - home CPAP - CPAP at night Assessment & Plan (07/28/2023 2:22 AM EDT): - home CPAP - CPAP at night Assessment & Plan (09/23/2018 12:46 AM EST): Assessment: Stable, controlled on BiPAP. PLAN: Continue BiPAP Outpatient sleep study and titration F/u in Sleep clinic Assessment & Plan (09/19/2018 7:47 AM EST): See acute on chronic respiratory failure with hypoxia and hypercapnia Voiding duvjbljavvd14/24/2016Other specified acquired bgyvzjydgxzlhq51/23/2013 Testosterone iyjocbkizn42/23/2013 Assessment & Plan (08/11/2023 7:35 AM EDT): - home med: testosterone injection 1ml (200 mg/ml) every 14 days. next does 08/12/2023 Assessment & Plan (2023 7:49 AM EDT): - home med: testosterone injection 1ml (200 mg/ml) every 14 days. next does 08/12/2023 Assessment & Plan (08/09/2023 8:59 AM EDT): - home med: testosterone injection 1ml (200 mg/ml) every 14 days. next does 08/12/2023 Assessment & Plan (08/08/2023 7:52 AM EDT): - home med: testosterone injection 1ml (200 mg/ml) every 14 days. next does 08/12/2023 Assessment & Plan (08/07/2023 11:45 AM EDT): - home med: testosterone injection 1ml (200 mg/ml) every 14 days. next does 08/12/2023 Assessment & Plan (08/05/2023 8:54 AM EDT): - home med: testosterone injection 1ml (200 mg/ml) every 14 days. next does 08/12/2023 Assessment & Plan (08/04/2023 9:15 AM EDT): - home med: testosterone injection 1ml (200 mg/ml) every 14 days. next does 08/12/2023 Assessment & Plan (08/03/2023 11:33 AM EDT): - home med: testosterone injection 1ml (200 mg/ml) every 14 days. next does 08/12/2023 Assessment & Plan (08/02/2023 10:39 AM EDT): - home med: testosterone injection 1ml (200 mg/ml) every 14 days. next does 08/12/2023 Assessment & Plan (08/01/2023 11:35 AM EDT): - home med: testosterone injection 1ml (200 mg/ml) every 14 days. next does 08/12/2023 Assessment & Plan (07/31/2023 10:42 AM EDT): - home med: testosterone injection 1ml (200 mg/ml) every 14 days. next does 08/12/2023 Assessment & Plan (07/30/2023 7:48 AM EDT): - home med: testosterone injection 1ml (200 mg/ml) every 14 days. next does 08/12/2023 Assessment & Plan (07/29/2023 12:07 PM EDT): - home med: testosterone injection 1ml (200 mg/ml) every 14 days. next does 07/29/2023 Assessment & Plan (07/28/2023 2:29 AM EDT): - home med: testosterone injection 1ml (200 mg/ml) every 14 days. Assessment & Plan (09/13/2018 8:04 AM EST): PLAN: - Hold testosterone shots Assessment & Plan (09/12/2018 8:18 AM EST): PLAN: - Hold testosterone shots Assessment & Plan (09/11/2018 1:02 PM EST): PLAN: - Hold testosterone shots Assessment & Plan (09/10/2018 11:48 AM EST): PLAN: - Hold testosterone shots Assessment & Plan (09/09/2018 11:52 AM EST): PLAN: - Hold testosterone shots Assessment & Plan (09/08/2018 8:01 AM EST): PLAN: - Hold testosterone shots Assessment & Plan (09/07/2018 9:46 AM EST): PLAN: - Hold testosterone shots Assessment & Plan (09/06/2018 10:09 AM EST): PLAN: - Hold testosterone shots Assessment & Plan (09/04/2018 2:49 PM EST): PLAN: - Hold testosterone shots Assessment & Plan (09/03/2018 3:43 PM EST): PLAN: - Hold testosterone shots Vitamin D zvqaazrtzj25/01/2013 Overview (10/08/2018): Maty coats on 10.07.18: Vitamin Ds and exercise Vitamin D level was low = 23 (normal 31-80) on 10/03 and I gave to him a prescription today for 5,000 IU to be taken each day. We discussed the importance of Vitamin D with a role in strong bones and muscles and that Vitamin Dneeds to be used to absorb Calcium. This should be managed by his PCP with his history of kidney stones. We spoke about progressive exercise as a goal beginning with extended walking. He may consider speaking with his new PCP about bariatric surgery. Calculus of orhyth8510/03/2012Sleep apnea10/03/2012 Overview (10/07/2018): Maty coats on 10.07.18: This was first issued after a pneumonia years ago before CELESTINE was actually diagnosed. CELESTINE was known to be severe and he is scheduled for a BiPAP titration sleep study on 11/05/18 at 9:00 pm here at the main campus ([facility]). He had cancelled his appt. On 10/09 and we spoke about the importance of this study. Assessment & Plan (09/14/2018 11:22 AM EST): Assessment: H/o CELESTINE and OHS PLAN: - BiPAP HS and weaning daily O2 requirements. Assessment & Plan (09/13/2018 8:03 AM EST): Assessment: H/o CELESTINE and OHS PLAN: - BiPAP HS and weaning daily O2 requirements. Assessment & Plan (09/12/2018 8:17 AM EST): Assessment: H/o CELESTINE and OHS PLAN: - BiPAP HS and weaning daily O2 requirements. Assessment & Plan (09/11/2018 12:59 PM EST): Assessment: H/o CELESTINE and OHS PLAN: - BiPAP HS and weaning daily O2 requirements. Assessment & Plan (09/10/2018 11:47 AM EST): Assessment: H/o CELESTINE and OHS PLAN: - BiPAP HS and weaning daily O2 requirements. Assessment & Plan (09/09/2018 11:51 AM EST): Assessment: H/o CELESTINE and OHS PLAN: - BiPAP HS and weaning daily O2 requirements. Assessment & Plan (09/08/2018 8:00 AM EST): Assessment: H/o CELESTINE and OHS PLAN: - BiPAP HS and weaning daily O2 requirements. Assessment & Plan (09/07/2018 9:45 AM EST): Assessment: H/o CELESTINE and OHS PLAN: - BiPAP HS and weaning daily O2 requirements. Assessment & Plan (09/06/2018 10:08 AM EST): Assessment: H/o CELESTINE and OHS PLAN: BiPAP HS and weaning daily O2 requirements. Extreme obesity with alveolar haflcnejgjngqwz53/06/2012 Overview (10/08/2018): Overview: Last Assessment & Plan: Assessment: home BiPAP. Noncompliant. PLAN: - Encourage BiPAP at night & w/ naps - Psych consulted to assist w/ Anxiety/depression that is inhibiting compliance with BiPAP: increased cymbalta to 120mg/ seroquel 75mg qhs and PRN & atarax PRN Assessment & Plan (09/23/2018 12:45 AM EST): Assessment: Presented with acute hypercarbia (pCO2 in 90s) at LTACH in setting of noncompliance with BiPAP. CXR limited due to body habitus but showed bibasilar atelectasis with no acute process. Hypercarbia improved on BiPAP. PLAN: Continue BiPAP with sleep; titration completed by Pulmonary team [facility]u in [facility] Assessment & Plan (09/19/2018 7:47 AM EST): See acute on chronic respiratory failure with hypoxia and hypercapnia Assessment & Plan (09/14/2018 11:22 AM EST): Assessment: home BiPAP. Noncompliant. PLAN: - Encourage BiPAP at night & w/ naps - Psych consulted to assist w/ Anxiety/depression that is inhibiting compliance with BiPAP: increased cymbalta to 120mg/ seroquel 75mg qhs and PRN & atarax PRN Assessment & Plan (09/13/2018 11:01 AM EST): Assessment: home BiPAP. Noncompliant. PLAN: - Encourage BiPAP at night & w/ naps - Psych consulted to assist w/ Anxiety/depression that is inhibiting compliance with BiPAP: increased cymbalta to 120mg/ seroquel 75mg qhs and PRN & atarax PRN Assessment & Plan (09/12/2018 8:18 AM EST): Assessment: home BiPAP. Noncompliant. PLAN: - Encourage BiPAP at night & w/ naps - Psych consult to assist w/ Anxiety/depression that is inhibiting compliance with BiPAP Assessment & Plan (09/11/2018 1:01 PM EST): Assessment: home BiPAP. Noncompliant. PLAN: - Encourage BiPAP at night & w/ naps - Psych consult to assist w/ Anxiety/depression that is inhibiting compliance with BiPAP Assessment & Plan (09/10/2018 11:47 AM EST): Assessment: home BiPAP. Noncompliant. PLAN: - Encourage BiPAP at night & w/ naps - Psych consult to assist w/ Anxiety/depression that is inhibiting compliance with BiPAP Assessment & Plan (09/09/2018 11:51 AM EST): Assessment: home BiPAP. Noncompliant. PLAN: - Encourage BiPAP at night & w/ naps - Psych consult to assist w/ Anxiety/depression that is inhibiting compliance with BiPAP Assessment & Plan (09/08/2018 8:00 AM EST): Assessment: home BiPAP. Noncompliant. PLAN: - Encourage BiPAP at night & w/ naps - Psych consult to assist w/ Anxiety/depression that is inhibiting compliance with BiPAP Assessment & Plan (09/07/2018 9:45 AM EST): Assessment: home BiPAP. Noncompliant. PLAN: - Encourage BiPAP at night & w/ naps Assessment & Plan (09/06/2018 10:09 AM EST): Assessment: home BiPAP. Noncompliant. PLAN: - BiPAP at night Assessment & Plan (09/04/2018 2:48 PM EST): Assessment: home BiPAP. Noncompliant. PLAN: - BiPAP at night when extubated Assessment & Plan (09/03/2018 3:43 PM EST): Assessment: home BiPAP. Noncompliant. PLAN: - BiPAP at night when extubated [id number]/03/2012 Overview (07/29/2023): Assessment & Plan (08/12/2023 11:12 AM EDT): See acute respiratory failure Assessment & Plan (08/11/2023 7:32 AM EDT): See acute respiratory failure Assessment & Plan (2023 7:47 AM EDT): See acute respiratory failure Assessment & Plan (08/09/2023 8:56 AM EDT): See acute respiratory failure Assessment & Plan (08/08/2023 7:50 AM EDT): See acute respiratory failure Assessment & Plan (08/07/2023 11:43 AM EDT): See acute respiratory failure Assessment & Plan (08/06/2023 11:31 AM EDT): See acute respiratory failure Assessment & Plan (08/05/2023 8:50 AM EDT): See acute respiratory failure Assessment & Plan (08/04/2023 9:17 AM EDT): See acute respiratory failure Assessment & Plan (08/02/2023 10:36 AM EDT): See acute respiratory failure Assessment & Plan (08/01/2023 11:34 AM EDT): - CTM prn duoneb Assessment & Plan (07/31/2023 10:45 AM EDT): - CTM prn duoneb Assessment & Plan (07/30/2023 7:46 AM EDT): - CTM prn duoneb Assessment & Plan (07/29/2023 12:04 PM EDT): - CTM prn duoneb Assessment & Plan (07/28/2023 2:23 AM EDT): - CTM - prn med for wheezing as needed GERD (gastroesophageal reflux disease)10/03/2012 Overview (07/29/2023): Assessment & Plan (08/12/2023 11:13 AM EDT): -Pantoprazole Assessment & Plan (08/11/2023 7:33 AM EDT): -Pantoprazole Assessment & Plan (2023 7:49 AM EDT): -Pantoprazole Assessment & Plan (08/09/2023 8:59 AM EDT): -Pantoprazole Assessment & Plan (08/08/2023 7:50 AM EDT): -Pantoprazole Assessment & Plan (08/07/2023 11:43 AM EDT): -Pantoprazole Assessment & Plan (08/06/2023 11:33 AM EDT): -Pantoprazole Assessment & Plan (08/05/2023 8:51 AM EDT): -Pantoprazole Assessment & Plan (08/04/2023 9:17 AM EDT): -Pantoprazole Assessment & Plan (08/03/2023 11:33 AM EDT): -Pantoprazole Assessment & Plan (08/02/2023 10:38 AM EDT): -Pantoprazole Assessment & Plan (08/01/2023 11:35 AM EDT): Resume prilosec or equivalent when able Assessment & Plan (07/31/2023 10:43 AM EDT): Resume prilosec or equivalent when able Assessment & Plan (07/29/2023 12:05 PM EDT): resume prilosec or equivalent when able Assessment & Plan (07/28/2023 2:33 AM EDT): - resume home med as appropriate Back pain10/03/2012Family history of prostate [id number]/03/2012Renal stone BronchitisBell's palsyEssential (primary) hypertension Assessment & Plan (09/06/2023 12:24 PM EST): Assessment: - BP remains stable. Plan: -- Blood pressure monitoring per unit protocol. -- PRN Labetalol for SBP >160. Assessment & Plan (09/05/2023 9:41 AM EST): Assessment: - BP remains stable. Plan: -- Blood pressure monitoring per unit protocol. -- PRN Labetalol for SBP >160. Assessment & Plan (09/04/2023 10:38 AM EST): Assessment: BP stable Plan: - VS per protocol - PRN Labetalol Assessment & Plan (09/03/2023 1:37 PM EST): Assessment: SBP stable ~130s Plan: - VS per protocol - PRN Labetalol Assessment & Plan (09/02/2023 9:19 AM EST): A: pt takes clonidine 0.2 mg. P:restart Assessment & Plan (09/01/2023 10:42 AM EDT): A: pt takes clonidine 0.2 mg. P: hold, SBP 120's currently Assessment & Plan (08/31/2023 5:31 AM EDT): A: pt takes clonidine 0.2 mg. P: resume when able. Assessment & Plan (08/12/2023 11:12 AM EDT): - SBP < 160mmHg - Coreg 12.5 mg BID - PRN labetalol/hydralazine IV Assessment & Plan (08/11/2023 7:33 AM EDT): - SBP < 160mmHg - Coreg 12.5 mg BID - PRN labetalol/hydralazine IV Assessment & Plan (2023 7:49 AM EDT): - SBP < 160mmHg - Coreg 12.5 mg BID - PRN labetalol/hydralazine IV Assessment & Plan (08/09/2023 8:57 AM EDT): - SBP < 160mmHg - Coreg 12.5 mg BID - PRN labetalol/hydralazine IV Assessment & Plan (08/08/2023 7:49 AM EDT): - SBP < 160mmHg - Coreg 12.5 mg BID - PRN labetalol/hydralazine IV Assessment & Plan (08/07/2023 11:39 AM EDT): - SBP < 160mmHg - Coreg 12.5 mg BID - PRN labetalol/hydralazine IV Assessment & Plan (08/06/2023 11:32 AM EDT): - SBP < 160mmHg - Start coreg, uptitrate as necessary - PRN labetalol/hydralazine IV Assessment & Plan (08/05/2023 8:50 AM EDT): - SBP < 160mmHg - at goal without scheduled medication - PRN labetalol/hydralazine IV Assessment & Plan (08/04/2023 9:16 AM EDT): - SBP < 160mmHg - at goal without scheduled medication - PRN labetalol/hydralazine IV Assessment & Plan (08/03/2023 11:32 AM EDT): - SBP < 160mmHg - PRN labetalol/hydralazine Assessment & Plan (08/02/2023 10:35 AM EDT): - SBP < 160mmHg - PRN labetalol/hydralazine Assessment & Plan (08/01/2023 11:34 AM EDT): - SBP < 160mmHg - adding clonidine for Precedex wean - PRN labetalol/hydralazine Assessment & Plan (07/31/2023 10:46 AM EDT): - SBP < 160 - PRN labetalol/hydralazine Assessment & Plan (07/30/2023 7:47 AM EDT): - SBP < 160 Assessment & Plan (07/29/2023 12:04 PM EDT): - SBP < 160 Assessment & Plan (07/28/2023 2:23 AM EDT): - SBP < 160 Morbid obesity Overview (10/08/2018): Overview: Last Assessment & Plan: PLAN: - Family wishes to have bariatric consult once on RNF. Assessment & Plan (08/12/2023 11:13 AM EDT): - Accounts Receivable Clerk on weight loss -PT/OT Assessment & Plan (08/11/2023 7:35 AM EDT): - Accounts Receivable Clerk on weight loss -PT/OT Assessment & Plan (08/08/2023 7:52 AM EDT): - Accounts Receivable Clerk on weight loss -PT/OT Assessment & Plan (08/07/2023 11:45 AM EDT): - Accounts Receivable Clerk on weight loss -PT/OT Assessment & Plan (08/06/2023 11:34 AM EDT): - Accounts Receivable Clerk on weight loss -PT/OT Assessment & Plan (08/05/2023 8:54 AM EDT): - Accounts Receivable Clerk on weight loss -PT/OT Assessment & Plan (08/04/2023 9:15 AM EDT): - Accounts Receivable Clerk on weight loss -PT/OT Assessment & Plan (08/02/2023 10:39 AM EDT): - Accounts Receivable Clerk on weight loss -PT/OT Assessment & Plan (08/01/2023 11:35 AM EDT): - Accounts Receivable Clerk on weight loss -PT/OT Assessment & Plan (07/31/2023 10:42 AM EDT): - Accounts Receivable Clerk on weight loss -PT/OT Assessment & Plan (07/28/2023 2:36 AM EDT): - hiv counselor on weight loss Assessment & Plan (09/14/2018 11:22 AM EST): PLAN: - Family wishes to have bariatric consult once on RNF. Assessment & Plan (09/13/2018 8:04 AM EST): PLAN: - Family wishes to have bariatric consult once on RNF. Assessment & Plan (09/12/2018 8:18 AM EST): PLAN: - Family wishes to have bariatric consult once on RNF. Assessment & Plan (09/11/2018 1:05 PM EST): PLAN: - Family wishes to have bariatric consult once on RNF. Assessment & Plan (09/10/2018 11:48 AM EST): PLAN: - Family wishes to have bariatric consult once on RNF. Assessment & Plan (09/09/2018 11:53 AM EST): PLAN: - Family wishes to have bariatric consult once on RNF. Assessment & Plan (09/08/2018 8:01 AM EST): PLAN: - Family wishes to have bariatric consult once on RNF. Assessment & Plan (09/07/2018 9:46 AM EST): PLAN: - Family wishes to have bariatric consult once on RNF. Assessment & Plan (09/06/2018 10:09 AM EST): Family wishes to have bariatric consult once on RNF. Assessment & Plan (09/05/2018 8:19 AM EST): Family wishes to have bariatric consult once on RNF. Assessment & Plan (09/04/2018 2:49 PM EST): Resolved Problems ProblemNoted DateDiagnosed DateResolved DateEncounter for chest tube removal Fever Assessment & Plan (09/04/2023 10:51 AM EST): Assessment: Recent MRSA PNA (on PO atbx); continue IV Atbx while inpatient Febrile 38.7 on 09/03. Blood cx and urine cx in process Plan: - Follow up cultures - Continue Vanco + Cefepime - Trend CBC daily - holding Tylenol to prevent fever masking Assessment & Plan (09/04/2023 10:45 AM EST): Assessment: Recent MRSA PNA (on PO atbx); continue IV Atbx while inpatient Febrile 38.7 on 09/03. Blood cx and urine cx in process Plan: - Follow up cultures - Continue Vanco + Cefepime - Trend CBC daily - holding Tylenol to prevent fever masking Assessment & Plan (09/03/2023 1:45 PM EST): Assessment: Recent MRSA PNA (on PO atbx); continue IV Atbx while inpatient BCx sent 09/02 UA +; UCx negative 09/01 Lactate WNL (1.0) Plan: - Infectious workup in process - Follow up cultures - Continue Vanco + Cefepime - Trend CBC daily - Repeat UA; UCx if indicated - CXR Loculated [id number] Assessment & Plan (09/04/2023 10:43 AM EST): Per ID, possible resolving infection after reviewing pleural fluid analysis Assessment & Plan (09/03/2023 1:30 PM EST): Per ID, possible resolving infection after reviewing pleural fluid analysis Assessment & Plan (09/02/2023 9:37 AM EST): Per ID, possible resolving infection after reviewing pleural fluid analysis Abdominal wall [id number] Assessment & Plan (09/05/2023 9:48 AM EST): Assessment: - Interval decrease in rim-enhancing trace perisplenic fluid collection (maximal lateral dimension measuring 2.1 cm, previously 3.2 cm).No internal gas bubbles.Small upper LEFT abdominal cruz-incisional seroma. ??No organized abdominal wall collection amenable to drain. Plan: -- No current intervention planned. -- Trend CBC daily. -- Monitor for s/s bleeding. -- Transfuse for Hgb < 7 or symptomatic anemia. Assessment & Plan (09/04/2023 10:44 AM EST): Assessment: Interval decrease in rim-enhancing trace perisplenic fluid collection (maximal lateral dimension measuring 2.1 cm, previously 3.2 cm) No internal gas bubbles.Small upper LEFT abdominal cruz-incisional seroma. ??No organized abdominalwall collection amenable to drain. Plan: - No current intervention planned - Trend CBC - Monitor for s/s bleeding - Transfuse for Hgb < 7 or symptomatic anemia - Continue Atbx Assessment & Plan (09/03/2023 1:26 PM EST): Assessment: Interval decrease in rim-enhancing trace perisplenic fluid collection (maximal lateral dimension measuring 2.1 cm, previously 3.2 cm) No internal gas bubbles.Small upper LEFT abdominal cruz-incisional seroma. ??No organized abdominalwall collection amenable to drain. Plan: - No current intervention planned - Trend CBC - Monitor for s/s bleeding - Transfuse for Hgb < 7 or symptomatic anemia - Continue Atbx Assessment & Plan (09/02/2023 9:50 AM EST): -- ordered CT guided drain placement History of qltulxbkj44/03/2023 Assessment & Plan (09/02/2023 9:51 AM EST): Assessment: During recent admission, was being treated with IV vanco (transitioned to PO Linezolid as outpatient) through 09/09 for MRSA pneumonia per ID. PLAN: -- will continue IV vanco through 09/09 while inpatient per prior ID recommendations and restart linezolid PO at LTAC Assessment & Plan (08/31/2023 11:56 AM EDT): Assessment: During recent admission, was being treated with IV vanco (transitioned to PO Linezolid as outpatient) through 09/05 for MRSA pneumonia per ID. PLAN: -- will continue IV vanco through 09/05 while inpatient per prior ID recommendations (see Dr. Livingston's note) Electrolyte [id number]/ Assessment & Plan (08/27/2023 11:41 AM EDT): Assessment: - In the setting of critical illness and [place]. Plan: -- Monitor electrolytes daily and replete as needed. -- Continue free water flushes for hypernatremia, currently stable. Assessment & Plan (08/26/2023 12:37 AM EDT): Assessment: - In the setting of critical illness and MAS[place]. Plan: -- Monitor electrolytes daily and replete as needed. -- Continue free water flushes for hypernatremia. [id number]/ Assessment & Plan (08/24/2023 12:06 PM EDT): New anisocoria noted L pupil 5-6mm, R pupil 3mm on 08/23. Stat CT/CTA head/neck ordered with no acute findings. Anisocoria improved 08/24. Neurologic exam otherwise stable. 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 -On TPN, corpak placed 08/18 Assessment & Plan (08/13/2023 12:30 PM EDT): PEG dislodgement s/p washout on 08/12 with partial gastrectomy. Plan to start TPN today. Unable to pass NGT in OR. [id number]// Assessment & Plan (08/24/2023 12:00 PM EDT): HDS off pressors - Weaned off precedex 08/19 with clonidine support. On clonidine taper. Assessment & Plan (08/23/2023 2:54 PM EDT): HDS off pressors - Weaned off precedex 08/19 with clonidine support. On clonidine taper. Assessment & Plan (08/22/2023 12:44 PM EDT): HDS off pressors - Weaned off precedex 08/19 with clonidine support. Wean clonidine to 0.1 mg q8h. Assessment & Plan (08/21/2023 12:47 PM EDT): HDS off pressors - Weaned off precedex 08/19 with clonidine support. Will continue clonidine 0.3 mg q6h for now. Assessment & Plan (08/20/2023 1:53 PM EDT): HDS off pressors - Weaned off precedex 08/19 with clonidine support. Will continue clonidine 0.3 mg q6h for now. Assessment & Plan (08/18/2023 8:41 PM EDT): HDS off pressors Assessment & Plan (08/16/2023 3:36 PM EDT): HDS off pressors Assessment & Plan (08/15/2023 1:44 PM EDT): Off pressors Assessment & Plan (08/14/2023 1:06 PM EDT): Off pressors Assessment & Plan (08/13/2023 12:29 PM EDT): Off pressors this AM. Will stop stress dose steroids. On total parenteral nutrition (TPN) Assessment & Plan (08/24/2023 12:02 PM EDT): Assessment & Plan (08/23/2023 3:04 PM EDT): Dislodged PEG with no enteral access s/p OR as above CORPAK placed 08/19. Started trickle feeds 08/20. Will stop TPN 08/23 given TF at goal. Assessment & Plan (08/22/2023 12:51 PM EDT): Dislodged PEG with no enteral access s/p OR as above CORPAK placed 08/19. Started trickle feeds 08/20 and continue TPN in interim. Assessment & Plan (08/21/2023 12:50 PM EDT): Dislodged PEG with no enteral access s/p OR as above CORPAK placed 08/19. Started trickle feeds 08/20 and continue TPN in interim. Assessment & Plan (08/20/2023 1:55 PM EDT): Dislodged PEG with no enteral access s/p OR as above CORPAK placed 08/19. Will start trickle feeds 08/20 and continue TPN in interim. Assessment & Plan (08/18/2023 8:41 PM EDT): Dislodged G tube with no enteral acces sp OR as above Continue TPN EGD Corpak ok with surgery Assessment & Plan (08/17/2023 3:00 PM EDT): Dislodged G tube with no enteral acces sp OR as above Continue TPN EGD Corpak ok with surgery Assessment & Plan (08/16/2023 3:38 PM EDT): Dislodged G tube with no enteral acces sp OR as above Continue TPN Corpak once ok with surgery Assessment & Plan (08/15/2023 1:44 PM EDT): Dislodged G tube with no enteral acces sp OR as above TPN consult. Corpak once ok with surgery Assessment & Plan (08/14/2023 1:06 PM EDT): Dislodged G tube with no enteral acces sp OR as above TPN consult Assessment & Plan (08/12/2023 11:18 PM EDT): Dislodged G tube with no enteral acces sp OR as above TPN consult Gastrojejunostomy tube [id number]/ Assessment & Plan (08/24/2023 12:07 PM EDT): G tube dislodged with gastric perf 08/18: Corpak placed and trickle feeds started 08/20, advanced to goal Assessment & Plan (08/23/2023 3:06 PM EDT): G tube dislodged with gastric perf- On Nolan and fluconazole. 08/18: Corpak placed and trickle feeds started 08/20, advanced to goal Assessment & Plan (08/22/2023 12:55 PM EDT): G tube dislodged with gastric perf- On Nolan and fluconazole. 08/18: Corpak placed and trickle feeds started 08/20, will advance per RD Assessment & Plan (08/21/2023 12:54 PM EDT): G tube dislodged with gastric perf- On Nolan and fluconazole. 08/18: Corpak placed and trickle feeds started 08/20 Assessment & Plan (08/20/2023 1:58 PM EDT): G tube dislodged with gastric perf- On Nolan and fluconazole. 08/18: Corpak placed Assessment & Plan (08/18/2023 8:41 PM EDT): G tube dislodged with gastric perf- On Nolan and fluconazole. 08/18: Corpak placed Assessment & Plan (08/17/2023 3:04 PM EDT): G tube dislodged with gastric perf- On Nolan and fluconazole. Corpak once ok with surgery Assessment & Plan (08/15/2023 1:45 PM EDT): G tube dislodged with gastric perf- On Nolan and fluconazole. Blood cultures x2 Corpak once ok with surgery Assessment & Plan (08/14/2023 1:06 PM EDT): G tube dislodged with gastric perf- On zosyn, merp.fluc Blood cultures x2 Corpak once ok with surgery Assessment & Plan (08/12/2023 11:18 PM EDT): G tube dislodged with gastric perf- On zosyn, merp.fluc Blood cultures x2 Septic shock Assessment & Plan (08/24/2023 12:05 PM EDT): Gastric perf with fecal peritonitis and septic shock Off pressors and steroids 10 - Febrile Tmax 102.6 F, HDS stable, Leukocytosis, agitated and nauseous Resolved Assessment & Plan (08/23/2023 3:06 PM EDT): Gastric perf with fecal peritonitis and septic shock Off pressors and steroids 10/ - Febrile Tmax 102.6 F, HDS stable, Leukocytosis, agitated and nauseous Resolved Assessment & Plan (08/22/2023 12:54 PM EDT): Gastric perf with fecal peritonitis and septic shock Off pressors and steroids 08/17 - Febrile Tmax 102.6 F, HDS stable, Leukocytosis, agitated and nauseous - Continue meropenem, vancomycin, micafungin per ID - Tobramycin if hypotensive - 08/17 BCx x4 NGTD, Tracheal aspirate with rare GPCs, 08/21 BCx NGTD x1 - Replaced FMS 08/21 given ongoing diarrhea Assessment & Plan (08/21/2023 12:53 PM EDT): Gastric perf with fecal peritonitis and septic shock Off pressors and steroids 08/17 - Febrile Tmax 102.6 F, HDS stable, Leukocytosis, agitated and nauseous - Continue meropenem, vancomycin, micafungin per ID - Tobramycin if hypotensive - BCx x3 NGTD, Tracheal aspirate with rare GPCs - Replaced FMS 08/21 given ongoing diarrhea Assessment & Plan (08/20/2023 1:57 PM EDT): Gastric perf with fecal peritonitis and septic shock Off pressors and steroids 08/17 - Febrile Tmax 102.6 F, HDS stable, Leukocytosis, agitated and nauseous - ID following, if pt spikes another fever broaden fluconazole to micafungin - continue Nolan/fluc - Tobramycin once - BCx x2 NGTD, Tracheal aspirate without significant growth - C diff negative, will remove FMS 08/20 Assessment & Plan (08/18/2023 8:41 PM EDT): Gastric perf with fecal peritonitis and septic shock Off pressors and steroids 10 - Febrile Tmax 102.6 F, HDS stable, Leukocytosis, agitated and nauseous - ID following, if pt spikes another fever broaden fluconazole to micafungin - continue Nolan/fluc - Tobramycin once - BCx x2, UA, Tracheal aspirate - CT Chest/AP w/o IV contrast - C. Diff Assessment & Plan (08/17/2023 3:10 PM EDT): Gastric perf with fecal peritonitis and septic shock Off pressors and steroids 08/17 - Febrile Tmax 102.6 F, HDS stable, Leukocytosis, agitated and nauseous - ID following, if pt spikes another fever broaden fluconazole to micafungin - continue Nolan/fluc - Tobramycin once - BCx x2, UA, Tracheal aspirate - CT Chest/AP w/o IV contrast - C. Diff Assessment & Plan (08/16/2023 3:40 PM EDT): Gastric perf with fecal peritonitis and septic shock Off pressors and steroids - ID following, appreciate recs - continue Nolan/fluc - D/c vanco Assessment & Plan (08/15/2023 1:45 PM EDT): Gastric perf with fecal peritonitis and septic shock Off pressors and steroids Nolan/fluc/vanco Assessment & Plan (08/14/2023 1:07 PM EDT): Gastric perf with fecal peritonitis and septic shock Off pressors and steroids Nolan/fluc/vanco Assessment & Plan (08/12/2023 11:19 PM EDT): Gastric perf with fecal peritonitis and septic shock On levo/vaso Stress dose steroids Nolan/fluc/vanco ABLA (acute blood loss anemia) Assessment & Plan (08/24/2023 12:05 PM EDT): Assessment: Stable 08/24 PLAN: - trend H&H - transfuse for Hgb < 7 or symptomatic anemia Assessment & Plan (08/23/2023 3:06 PM EDT): Assessment: Stable 08/23 PLAN: - trend H&H - transfuse for Hgb < 7 or symptomatic anemia Assessment & Plan (08/22/2023 12:54 PM EDT): Assessment: Stable 08/22 PLAN: - trend H&H - transfuse for Hgb < 7 or symptomatic anemia Assessment & Plan (08/21/2023 12:52 PM EDT): Assessment: Stable 08/21 PLAN: - trend H&H - transfuse for Hgb < 7 or symptomatic anemia Assessment & Plan (08/20/2023 1:56 PM EDT): Assessment: Stable 08/20 PLAN: - trend H&H - transfuse for Hgb < 7 or symptomatic anemia Assessment & Plan (08/18/2023 8:40 PM EDT): Assessment: PLAN: - trend H&H - transfuse for Hgb < 7 or symptomatic anemia Assessment & Plan (08/16/2023 3:40 PM EDT): Assessment: PLAN: - trend H&H - transfuse for Hgb < 7 or symptomatic anemia Assessment & Plan (08/15/2023 1:46 PM EDT): ABLA NO need to transfuse Hb stable at 9.5 Assessment & Plan (08/14/2023 1:06 PM EDT): ABLA with hgb 10.2 NO need to transfuse Assessment & Plan (08/12/2023 11:22 PM EDT): ABLA with hgb 10.2 NO need to transfuse Tracheostomy in place/ Assessment & Plan (08/24/2023 12:01 PM EDT): Trach exchanged 08/21 Assessment & Plan (08/23/2023 2:58 PM EDT): Trach exchanged 08/21 Assessment & Plan (08/22/2023 12:48 PM EDT): Trach exchanged 08/21 Fever3111/04/2022 Assessment & Plan (08/12/2023 11:17 AM EDT): See Leukocytosis Assessment & Plan (08/08/2023 7:51 AM EDT): Afebrile overnight, improving leukocytosis: WBC 10 - Resp culture +for methicillin susceptible S. Aureus - Listed allergy to PCN, consult allergy--> unable to assess due to hydroxyzine - Start cefazolin -allergy recs re consult when off hydroxyzine Assessment & Plan (08/07/2023 11:44 AM EDT): Afebrile overnight, improving leukocytosis: WBC 10 - Resp culture +for methicillin susceptible S. Aureus - Listed allergy to PCN, consult allergy--> unable to assess due to hydroxyzine - Start cefazolin for now pending allergy recs Ongoing fever, resend sputum Assessment & Plan (08/06/2023 11:33 AM EDT): Afebrile overnight, improving leukocytosis: WBC 10 - Resp culture +for methicillin susceptible S. Aureus - Listed allergy to PCN, consult allergy - Start cefazolin for now pending allergy recs - DC vanco/cefepime -repeat Procal unremarkable -repeat CXR with improved R lung aeration Assessment & Plan (08/05/2023 8:51 AM EDT): Afebrile overnight, improving leukocytosis: WBC 10 -continue Cefepime and Vancomycin for aspiration coverage (nasal PCR + for MRSA) -repeat Procal unremarkable -repeat CXR with improved R lung aeration Assessment & Plan (08/04/2023 9:24 AM EDT): Tmax 38.2, with persistent mild Leukocytosis: WBC 11.5 -continue Cefepime and Vancomycin for aspiration coverage (nasal PCR + for MRSA) -repeat Procal today -repeat CXR Cardiac arrest due to respiratory /06/2024 Assessment & Plan (08/12/2023 11:12 AM EDT): 08/01 afternoon had PEA arrest following respiratory decompensation. ROSC achieved following intubation and 6 rounds of CPR including 3x Epi and calcium and intubation via 2DART -post-arrest Echo without significant changes -remains hemodynamically stable Assessment & Plan (08/11/2023 7:33 AM EDT): 08/01 afternoon had PEA arrest following respiratory decompensation. ROSC achieved following intubation and 6 rounds of CPR including 3x Epi and calcium and intubation via 2DART -post-arrest Echo without significant changes -remains hemodynamically stable Assessment & Plan (08/09/2023 8:56 AM EDT): 08/01 afternoon had PEA arrest following respiratory decompensation. ROSC achieved following intubation and 6 rounds of CPR including 3x Epi and calcium and intubation via 2DART -post-arrest Echo without significant changes -remains hemodynamically stable Assessment & Plan (08/08/2023 7:49 AM EDT): 08/01 afternoon had PEA arrest following respiratory decompensation. ROSC achieved following intubation and 6 rounds of CPR including 3x Epi and calcium and intubation via 2DART -post-arrest Echo without significant changes -remains hemodynamically stable Assessment & Plan (08/07/2023 11:38 AM EDT): 08/01 afternoon had PEA arrest following respiratory decompensation. ROSC achieved following intubation and 6 rounds of CPR including 3x Epi and calcium and intubation via 2DART -post-arrest Echo without significant changes -remains hemodynamically stable Assessment & Plan (08/06/2023 11:31 AM EDT): 08/01 afternoon had PEA arrest following respiratory decompensation. ROSC achieved following intubation and 6 rounds of CPR including 3x Epi and calcium and intubation via 2DART -post-arrest Echo without significant changes -remains hemodynamically stable Assessment & Plan (08/05/2023 8:50 AM EDT): 08/01 afternoon had PEA arrest following respiratory decompensation. ROSC achieved following intubation and 6 rounds of CPR including 3x Epi and calcium and intubation via 2DART -post-arrest Echo without significant changes -remains hemodynamically stable Assessment & Plan (08/04/2023 9:16 AM EDT): 08/01 afternoon had PEA arrest following respiratory decompensation. ROSC achieved following intubation and 6 rounds of CPR including 3x Epi and calcium and intubation via 2DART -post-arrest Echo without significant changes -remains hemodynamically stable Assessment & Plan (08/03/2023 11:33 AM EDT): 08/01 afternoon had PEA arrest following respiratory decompensation. ROSC achieved following intubation and 6 rounds of CPR including 3x Epi and calcium and intubation via 2DART -now neurologically back to baseline - deferring TTM -post-arrest Echo -remains hemodynamically stable Assessment & Plan (08/02/2023 10:33 AM EDT): 08/01 afternoon had PEA arrest following respiratory decompensation. ROSC achieved following intubation and 6 rounds of CPR including 3x Epi and calcium and intubation via 2DART -now neurologically back to baseline - deferring TTM -post-arrest Echo -remains hemodynamically stable Intracranial cibxphpkwe233Acute sxydbwgaxvwdsz90/22/2018 09/25/2018 Assessment & Plan (09/24/2018 5:06 PM EST): Assessment: Resolved with NIPPV, related to hypercarbia. PLAN: Monitor mental status Assessment & Plan (09/23/2018 12:50 AM EST): Assessment: Resolved with NIPPV, related to hypercarbia. PLAN: Monitor mental status Assessment & Plan (09/19/2018 10:42 AM EST): Assessment: 2/2 hypercarbia, resolving PLAN: - BiPAP with sleeping and naps - con't seroquel scheduled and PRN Acute respiratory failure with hypoxia and nfvmicwlfae95Volume qyibsfaj74HypernatremiaRespiratory failure Acute cystitis without xabezojkl03 Kqghwuhidxkku53Pneumonia09/14/2018 Overview (10/24/2012): Bilateral Family History Medical HistoryRelationCommentsNo Ocular DiseaseFatherprostate Ca.Fatherdied age 53, suicide.CataractMaternal GrandfatherMacular DegenMaternal GrandmotherNo Ocular DiseaseMotherpituitary tumorMotherprostate Ca.Paternal Grandfather fibromyalgiaSistermigrainesSon 1NoneSon 2RelationStatusCommentsFatherMaternal GrandfatherMaternal GrandmotherMotherPaternal GrandfatherSisterSon 1Son 2 Social History Tobacco UseTypesPacks/DayYears UsedDateSmoking Tobacco: FormerCigarsQuit: 10/29/2014Smokeless Tobacco: Never Comments:quit in 2015 - soci al cigars - not inhaled x 20 yrs Alcohol UseStandard Drinks/WeekCommentsNo0 (1 standard drink = 0.6 oz pure alcohol)alcoholic in remissionOverall Financial Resource Strain (CARDIA)Answer Date RecordedHow hard is it for you to pay for the very basics like food, housing, medical care, and heating?Not very hard08/31/2023HQ-2AnswerDate RecordedPHQ2 Qsbww97311/19/2017Hunger Vital SignAnswerDate RecordedWithin the past 12 months, you worried that your food would run out before you got the money to buymore.Never true08/31/2023Within the past 12 months, the food you bought just didn't last and you didn't have money to get more.Never true08/31/2023RAPARE - TransportationAnswerDate RecordedIn the past 12 months, has lack of transportation kept you from medical appointments or from getting medications?No 08/31/2023In the past 12 months, has lack of transportation kept you from meetings, work, or from getting things needed for daily living?No08/31/2023 Housing Stability Vital SignAnswerDate RecordedIn the last 12 months, was there a time when you were not able to pay the mortgage or rent on time?No08/31/2023In the last 12 months, how many places have you lived?In the last 12 months, was there a time when you did not have a steady place to sleep or slept in ashelter (including now)?No08/31/2023Housing Stability Vital SignAnswerDate RecordedIn the last 12 months, was there a time when you were not able to pay the mortgage or rent on time?No08/31/2023Number of Times Moved in the Last Year Not on file08/31/2023Homeless in the Last YearNot on file08/31/2023rea Deprivation IndexAnswerDate RecordedNational Score (1-100), lower number is lower pmon247209/28/2023State Score (1-10), lower number is lower ldou50211/29/2022 Data from: https://www.neighborhoodatlas.medicine.[facility].edu/. Last address used for [address]09/28/2023Sex and Gender InformationValueDate RecordedSex Assigned at BirthNot on fileLegal PxvJvqy33/02/2012 8:45 AM EST Gender IdentityNot on fileSexual OrientationNot on fileOccupationIndustryJob Start DateJob End DateunemployedNot on fileNot on fileNot on file Last Filed Vital Signs Vital SignReadingTime TakenCommentsBlood Qjvkppyi910/8109/06/2023 4:00 PM EST Eugvk54714/09/2023 4:00 PM PCEKsoywkklyxm49 ??C (98.6 ??F)09/06/2023 12:00 PM ESTRespiratory Ifdn974609/06/2023 1:16 PM ESTOxygen Pcgokoetvg27%09/06/2023 4:00 PM ESTInhaled Oxygen Concentration--Lurxgr478 kg (414 lb 7.4 oz)09/01/2023 6:00 AM HRFSgqokf961.3 cm (5' 9.02 )09/03/2023 11:20 AM ESTBody Mass Index61.18 09/01/2023 6:00 AM EDT Plan of Treatment Health MaintenanceDue DateLast DoneCommentsDiabetic Foot Exam1982Urine Albumin:Creatinine Ratio1982Annual PCP Team Chronic Disease Visit 1990Depression Pnhcgowjh03/13/1990HIV Gmansdghh70/13/1990Hepatitis C Bdzhnxnfs45/13/1990DTaP,Tdap,Td Vaccine (1 - Tdap)1991Hepatitis B Vaccine (1 of 3 - 19+ 3-dose series)1991Pneumococcal Vaccine: 50+ (1 of 2 - PCV) 1991Medicare Annual Wellness Visit09/28/2014CT Fegmxmfkogmy84/13/2017 Cologuard (FIT-DNA)08/10/20170514Entdwvxaxvv57/13/9813Rbsohubdcwvgd21/13/2017RSV Vaccine (1 - Risk 50-74 years 1-dose series)2022hingrix Vaccine (1 of 2) 2Dilated Retinal Exam/1LDL Fphhvirwahv84/01/2024 3Colorectal Cancer Biwxeujdl59/08/2024Fecal Occult Blood10/05/2024 10/05/20233221XsG4E66/08/2024, 01/02/2024, 10/04/2023, Additional history existsCovid-19 Vaccine ( season)/, 01/14/2021 Influenza Vaccine (#1)/ Medical Devices ImplantedTypeAreaManufacturerDevice IdentifierShelf Expiration DateModel / Serial / LotFilter Celect [place] [employer] [place] Embolization Navalign Delivery Set Sterile Vena Cava - [id number] Implanted:Qty: 1 [facility] MAINImplantN/A: Vein - AbdomenCOOK [id number]/12/[id number] / / [id number] Portex Bivona Tts Fixed Neck Flange Hyperflex 11.7mm 8mm Silicone 120 - [id number] Implanted:Qty: 1 on 08/06/2023 at [facility] MAINTubeN/A: NeckBIVONA [id number] / / [id number] Endovive Enfit 20fr Peg Pull - [id number] Implanted:Qty: 1 on 08/08/2023 at [facility] SCIENTIFIC [id number] / / Tube Bivona Hyperflex Aire-Cuf 12.9mm 9mm Silicone 140mm Tracheostomy - [id number] Implanted:Qty: 1 on [facility]21[facility]: TracheaSMITHS MEDICAL ASD [id number] / / [id number] Uret 7fr 26cm W/O Gw Inl - [id number] Implanted:Qty: 1 on 11/13/2012 at [facility] StentsRight: Ureter B[employer] [id number] / / [id number]:Bard InLay [place] Ureteral StentStent Uret 7fr 28cm W/O Gw Inl - [id number] Implanted:Qty: 1 [facility]04/2012 [facility] St[facility] MEDICAL [id number] / / [id number]:optima inlay ureteral stent Procedures Procedure NamePriorityDate/TimeAssociated DiagnosisCommentsLIPID PANEL, FASTING Add-on07/29/2023 12:42 AM EDT HEMOGLOBIN V4DWSFG4907/28/2023 2:39 AM EDT from Last 3 Months or Most Recently Relevant to Health Maintenance Results * (ABNORMAL) LIPID PANEL BASIC (07/29/2023 12:42 AM EDT)ComponentValueRef Range Test MethodAnalysis TimePerformed AtPathologist SignatureCholesterol, Nfovo048 <200 mg/dL07/29/2023 9:29 AM EDTCTHE MET[facility] LABComment: <200 mg/dL, Desirable 200-239 mg/dL, Borderline high >239 mg/dL, High Kgnkkvegeohs13<150 mg/dL07/29/2023 9:29 AM [facility] Comment: <150 mg/dL, Normal 150-199 mg/dL, Borderline high 200-499 mg/dL, High >499 mg/dL, Very high HDL Zscvnbgxhrs15(L)>39 mg/dL07/29/2023 9:29 AM [facility]Comment: 40-59 mg/dL, Acceptable >59 mg/dL, High: Negative risk factor for coronary heart disease <40 mg/dL, Low: Positive risk factor for coronary heart disease Non HDL Blwhqkoielz74<130 mg/dL07/29/2023 9:29 AM [facility]Comment: <130 mg/dL, Optimal 130-159 mg/dL, Near optimal/above optimal 160-189 mg/dL, Borderline high 190-219 mg/dL, High >219 mg/dL, Very high Secondary prevention optimal non HDL Cholesterol levels are recommended to be <100 mg/dL Fasting Time07/29/2023 9:29 AM [facility] LABComment: UnknownVLDL Pflsrlbnvxy54<30 mg/dL07/29/2023 9:29 AM [facility] LABTC:HDL Ratio2.81<5.101 9:29 AM [facility] LABLDL Cholesterol, Ejpihylzoz91<100 mg/dL07/29/2023 9:29 AM [facility]Comment: <100 mg/dL, Optimal 100-129 mg/dL, Near optimal/above optimal 130-159 mg/dL, Borderline high 160-189 mg/dL, High >189 mg/dL, Very high Secondary prevention optimal LDL Cholesterol levels are recommended to be < 70 mg/dL LDL:HDL Ratio1.31<2.5407/29/2023 9:29 AM [facility] Comment: Reference: 1. National Cholesterol Education Program ATP III Guideline At-A-Glance Quick Desk Reference: National Heart, Lung, and Blood [place]. National Institutes of Health. 2001: NIH Publication No. 01-3305. 2. An International Atherosclerosis Society position paper: global recommendations for the management of dyslipidemia: executive summary, Atherosclerosis. 2014: 232(2):410-413. Specimen (Source)Anatomical Location / LateralityCollection Method / Volume Collection TimeReceived TimeBloodBLOOD SPECIMEN / UnknownVenipuncture / Unknown 07/29/2023 12:42 AM EDT1 12:50 AM EDT Narrative Authorizing ProviderResult TypeResult StatusNiles Najera APRN.CNPLABORATORY Final ResultPerforming OrganizationAddressCity/State/ZIP CodePhone Number [facility] [address] [place] [phone], * (ABNORMAL) HGB A1C (07/28/2023 2:39 AM EDT)ComponentValueRef RangeTest Method Analysis TimePerformed AtPathologist SignatureHemoglobin A1C5.7(H)4.3 - 5.6 % 07/28/2023 4:49 PM [facility]Comment:[place] Diabetes Association guidelines indicate that patients with HgbA1c in the range 5.7-6.4% are at increased risk for development of diabetes, and intervention by lifestyle modification may be beneficial. HgbA1c greater or equal to 6.5% is considered diagnostic of diabetes.Estimated Average Glucose 117mg/dL07/28/2023 4:49 PM [facility] LABComment:eAG: (Estimated average glucose) is a calculated value from HgbA1c and is players club representative of the average blood glucose level in the last 2-3 month period.Specimen (Source)Anatomical Location / LateralityCollection Method / VolumeCollection TimeReceived TimeBloodBLOOD SPECIMEN / UnknownVenipuncture / Wziieag4307/28/2023 2:39 AM EDT07/28/2023 3:36 AM EDT Narrative Authorizing ProviderResult TypeResult StatusFatemeh Haley APRN.CNPLABORATORY Final ResultPerforming OrganizationAddressCity/State/ZIP CodePhone Number [facility] [address] [place] [phone], from Last 3 Months or Most Recently Relevant to Health Maintenance Additional Health Concerns InfectionOnset DateLast IndicatedCandida auris Comment:Patient will require contact precautions for each subsequent hospitalization and for the duration of hospitalization. Insurance * Guarantor: Antelmo VannAccotrinity TypeRelation to PatientDate of BirthPhone Billing AddressP/F Select [id number] [address] [address] Advance Directives TypeDate RecordedPatient RepresentativeExplanationAdvance Directive(s)12/04/2017 3:43 AM * Full Code (Latest Code Status on File) Date ActivatedDate QlueubqmqmgShqcdgcl88/3/2023 2:02 PM09/06/2023 7:18 PMQuestion AnswerCommentsFull Code Order Discussed With:* Discussion Not Medically Appropriate * Full Code Date ActivatedDate AmrukqxkwrxNkrccail65/8/2023 12:09 08/27/2023 7:30 PM QuestionAnswerCommentsFull Code Order Discussed With:* Surrogate Decision Maker Care Teams Team MemberRelationshipSpecialtyStart DateEnd Date Julienne Neal MD [address] [facility] [place] [address] PCP - [facility]08/31/23 Yulisa Stewart DO [address] [facility] [place] [id number] [facility]erring[facility] [place]04/14/19 Sia Boucher MD [address] [place] [id number] [facility]08/27/22 Julienne Neal MD [address] [place] [id number] [facility]06/14/23
[2025-10-24 19:29] LABS: SARS-CoV-2 Ag NEGATIVE (NEGATIVE)
[2025-10-24 20:09] VITALS: BP 128/85; PULSE 66; O2SAT 99
--- NOTE | 2025-10-24 20:12 | ED_ITS ---
HPI HPI - General Adult General Chief complaint: Upper Respiratory Infection Stated complaint: CONGESTION, COUGH, rib pain Time Seen by Provider: 10/24/25 20:05 Source: patient and family Mode of arrival: walk-in Limitations: no limitations History of Present Illness HPI narrative: cc -cough and congestion, possible influenza exposure Patient brought in by family for evaluation and testing for influenza. He was possibly exposed by family member. His symptoms started about 36 hours ago with congestion and mild cough. He denies any chest pain or shortness of breath. He is most concerned that he might have a pneumonia. No GI or symptoms. No sore throat or ear pain. Per medical history includes DM3 and stroke in 2022 Related Data Previous Rx's ?Medication ?Instructions ?Recorded oseltamivir 75 mg capsule (Tamiflu) 75 mg PO BID 5 day s #9 caps 10/24/25 Allergies Allergy/AdvReac Type Severity Reaction Status Date / Time gabapentin (From Neurontin) Allergy Severe Vomiting Verified 10/24/25 18:49 Penicillins Allergy Severe Seizure Verified 10/24/25 18:49 tramadol Allergy Intermediate Hives Verified 10/24/25 18:49 PFSH PFSH Social History Little interest or pleasure in doing things: not at all Feeling down, depressed, or hopeless: not at all Exam Narrative Exam Narrative: Nurses notes and vital signs reviewed and patient is not hypoxic. afebrile General: Well-appearing and in no apparent distress. Skin: Warm, dry, no pallor noted. No rash. Head: Normocephalic, atraumatic. Neck: Supple, non-tender. No lymphadenopathy. No meningismus. Eye: Pupils are equal, round and EOMI. No scleral icterus. Ears, Nose, Mouth, and Throat: Oral mucosa is moist Cardiovascular: Regular Rate and Rhythm without murmur, gallop or rub. Respiratory: No accessory muscle use or respiratory distress. Lungs are clear to auscultation, no wheezing, rales or rhonchi Musculoskeletal: normal ROM. Neurological: A&O x4. No cranial nerve dysfunction observed. No truncal ataxia. Moves all extremities. Sensation intact. Psychiatric: Cooperative and interactive. Normal mood and affect. Constitutional Vital Signs, click to edit/add: Last Vital Signs Temp 98.6 F 10/24/25 18:45 Pulse 66 10/24/25 20:09 Resp 18 10/24/25 20:09 BP 128/85 10/24/25 20:09 Pulse Ox 99 10/24/25 20:09 O2 Del Method Room Air 10/24/25 18:45 Course Vital Signs Vital signs: Vital Signs Temperature 98.6 F 10/24/25 18:45 Pulse Rate 96 H 10/24/25 18:45 Respiratory Rate 20 10/24/25 18:45 Blood Pressure 132/77 10/24/25 18:45 Pulse Oximetry 97 10/24/25 18:45 Oxygen Delivery Method Room Air 10/24/25 18:45 Temperature 98.6 F 10/24/25 18:45 Pulse Rate 66 10/24/25 20:09 Respiratory Rate 18 10/24/25 20:09 Blood Pressure 128/85 10/24/25 20:09 Pulse Oximetry 99 10/24/25 20:09 Oxygen Delivery Method Room Air 10/24/25 18:45 Medical Decision Making MDM Narrative Medical decision making narrative: Patient tested positive for influenza A. He was started on Tamiflu. Lungs are clear and he is moving air well with normal oxygenation and respiratory rate. Information was given to both he and accompanying family member regarding treatment for influenza. ED return if he worsens. Lab Data Lab results reviewed: Yes I reviewed the patient's lab results Labs: Lab Results 10/24/25 Range/Units 18:53 Influenza Type A Ag Positive A Influenza Type B Ag Negative SARS-CoV-2 Ag (CV2AG) Negative (NEGATIVE) Discharge Plan Discharge Chief Complaint: Upper Respiratory Infection Clinical Impression: Influenza A Patient Disposition: Home, Self-Care Time of Disposition Decision: 20:11 Prescriptions / Home Meds: New oseltamivir [Tamiflu] 75 mg capsule 75 mg PO BID 5 Days Qty: 9 0RF Print Language: Singaporean Instructions: Influenza (ED) Referrals: NATHALY MENARD [Primary Care Provider] - 1 week
[2025-10-24] MEDS: OSELTAMIVIR PHOSPHATE 75 MG CAPSULE PO (20:22)
== END 2025-10-24 20:26 | disposition home or self-care (01) ==
PROVIDERS: Student in an Organized Health Care Education/Training Program; Emergency Provider Emergency Medicine
DX: J10.1 Influenza due to other identified influenza virus with other respiratory manifestations (principal); R06.5 Mouth breathing
CPT/HCPCS: 87804; 87811; 99284